=== PATIENT | male | born 1945 | race Caucasian/White ===

== ENCOUNTER 2016-10-28 05:22 | Emergency (ER) | payer MEDICARE, BC ==
[2016-10-28] MEDS ORDERED: MECLIZINE 25 MG TABLET PO ONE (05:28)
[2016-10-28] MEDS ORDERED: ONDANSETRON HCL IV 4 MG/2 ML VIAL IVP ONE (05:28)
[2016-10-28] MEDS ORDERED: ACETAMINOPHEN 1,000 MG/100 ML BTL IVPB ONE (05:28)
[2016-10-28 05:42] LABS: BASO % 0.9 % (0-6); EOS % 7.2 % (0-6); GRAN % 58.7 % (47-80); HEMOGLOBIN 11.5 gm/dl (14.0-18.0); LYMPH % 23.9 % (16-45); MEAN CELL VOLUME 87.6 fl (81-97); MEAN CORPUSCULAR HEMOGLOBIN 29.6 pg (27-33); MEAN CORPUSCULAR HGB CONC 33.8 g/dl (32-36); MEAN PLATELET VOLUME 10.5 fl (7.4-10.4); MONO % 9.3 % (0-9); PLATELET COUNT 284 K/uL (130-400); RED BLOOD COUNT 3.88 M/uL (4.40-5.70); RED CELL DISTRIBUTION WIDTH 12.5 % (11.5-14.5); WHITE BLOOD COUNT W/O DIFF 8.8 K/uL (4.2-12.2)
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
[2016-10-28 05:50] LABS: ALB/GLOB RATIO 1.2 (1.1-1.8); ALBUMIN 4.1 gm/dL (3.5-5.0); ANION GAP 9.2 (7-16); BILIRUBIN,TOTAL 0.58 mg/dL (0.2-1.3); CARBON DIOXIDE 25.8 mmol/L (22-30); CREATININE 1.7 mg/dL (0.66-1.25); TOTAL PROTEIN 7.5 gm/dL (6.3-8.2)
[2016-10-28 06:20] LABS: URINE APPEARANCE CLOUDY; URINE BILIRUBIN NEGATIVE (NEGATIVE); URINE BLOOD MODERATE (NEGATIVE); URINE COLOR YELLOW; URINE GLUCOSE (UA) NEGATIVE (NEGATIVE); URINE KETONE NEGATIVE (NEGATIVE); URINE LEUKOCYTE ESTERASE LARGE (NEGATIVE); URINE NITRITE NEGATIVE (NEGATIVE); URINE UROBILINOGEN 0.2 E.U./dL (0.20 - 1.00)
[2016-10-28 06:23] LABS: URINE BACTERIA 1+; URINE EPITHELIAL CELLS NONE SEEN (FEW); URINE RBC 21 - 35 (NONE SEEN)
[2016-10-28] MEDS ORDERED: CEFTRIAXONE SODIUM 1 GM in 0.9 % SODIUM CHLORIDE 100ML 100 ML IVPB ONE (06:25)
[2016-10-28] MEDS ORDERED: SODIUM CHLORIDE 0.9% 500 ML IV ONE (06:29)
[2016-10-28] MEDS ORDERED: TMP/SMZ 160MG/800MG TAB PO ONE (07:15)
--- NOTE | 2016-10-28 07:15 | Emergency Department Record ---
History of Present Illness - General Chief Complaint: Dizziness Stated Complaint: DIZZY Time Seen by Provider: 10/28/16 05:27 Source: Patient, EMS Mode of Arrival: Ambulatory Limitations: No limitations - History of Present Illness Onset/Timin -: Hour(s) Timing: Awoke with symptoms, Intermittent Description: Difficulty walking, Lightheadedness, Nausea History of Same: Yes History of Trauma: No Severity: Moderate Improves With: Remaining still Worsens With: Movement, Position Associated Symptoms: Denies other symptoms - Oral Coma Scale Eye Response: (4) Open spontaneously Motor Response: (6) Obeys commands Verbal Response: (5) Oriented [place] Total: 15 - Symptoms of Stroke Symptoms of stroke: Dizziness - Related Data Home Medications Medication Instructions Recorded Confirmed Last Taken Amlodipine Besylate [Norvasc] 10 mg PO DAILY 10/28/16 10/28/16 Unknown Insulin Glargine,Hum.rec.anlog 30 units SQ QAM 10/28/16 10/28/16 Unknown [Lantus Solostar] Metformin HCl [Metformin HCl] 850 mg PO BID 10/28/16 10/28/16 Unknown Short Acting Insulin 10 units SQ DAILY 10/28/16 10/28/16 Unknown Previous Rx's Medication Instructions Recorded Cephalexin [Keflex] 500 mg PO TID #30 cap 10/28/16 Sulfamethoxazole/Trimethoprim 1 each PO BID #20 tablet 10/28/16 [Bactrim Ds Tablet] Allergies Allergy/AdvReac Type Severity Reaction Status Date / Time No Known Drug Allergies Allergy Verified 10/28/16 05:39 Travel Screening - Travel/Exposure Within Last 30 Days Have you traveled within the last 30 days?: No - Travel/Exposure Within Last Year Have you traveled outside the [place] in the last year?: No - Additonal Travel Details Have you been exposed to anyone with a communicable illness?: No - Travel Symptoms Symptom Screening: None Review of Systems Constitutional: Reports: Weakness. Denies: Chills, Fever, Malaise Eyes: Denies: Eye discharge, Eye pain, Photophobia, Vision change ENT: Reports: Congestion. Denies: Dental pain, Ear pain, Epistaxis, Throat pain Respiratory: Denies: Cough, Dyspnea, Hemoptysis, Stridor, Wheezes Cardiovascular: Denies: Arrhythmia, Chest pain, Dyspnea on exertion, Edema, Palpitations, Syncope Endocrine: Denies: Fatigue, Polydipsia, Polyuria Gastrointestinal: Reports: Nausea. Denies: Abdominal pain, Constipation, Diarrhea, Hematemesis, Hematochezia, Vomiting Genitourinary: Reports: Frequency. Denies: Dysuria, Hematuria, Incontinence, Retention Musculoskeletal: Denies: Arthralgia, Back pain, Joint swelling, Myalgia Skin: Denies: Bruising, Change in color, Rash Neurological: Reports: Headache (frontal pressure for 13 months, daily, constant , never completely resolves), Vertigo. Denies: Confusion, Numbness, Seizure, Tingling Psychiatric: Denies: Anxiety Hematological/Lymphatic: Denies: Easy bleeding, Easy bruising Past Medical History - SOCIAL HISTORY Smoking Status: Former smoker Alcohol Use: None Drug Use: None - RESPIRATORY Hx Respiratory Disorders: No - CARDIOVASCULAR Hx Cardio Disorders: Yes Hx Hypertension: Yes - NEURO Hx Neuro Disorders: No - GI Hx GI Disorders: No - Hx Genitourinary Disorders: Yes Hx Renal Disease: Yes - ENDOCRINE Hx Endocrine Disorders: Yes Hx Diabetes: Yes - MUSCULOSKELETAL Hx Musculoskeletal Disorders: No - PSYCH Hx Psych Problems: No - HEMATOLOGY/ONCOLOGY Hx Hematology/Oncology Disorders: No Family Medical History Any Significant Family History?: No Physical Exam - General General Appearance: Alert, Oriented x3, Cooperative, No acute distress Limitations: No limitations - Head Head exam: Normal inspection - Eye Eye exam: Normal appearance, PERRL Pupils: Normal accommodation - ENT ENT exam: Normal exam, Mucous membranes moist, Normal external ear exam, Normal orophraynx, TM's normal bilaterally Ear exam: Normal external inspection. negative: External canal tenderness Nasal Exam: Normal inspection. negative: Discharge, Sinus tenderness Mouth exam: Normal external inspection, Tongue normal Teeth exam: Normal inspection. negative: Dental caries Throat exam: Normal inspection. negative: Tonsillar erythema, Tonsillar exudate - Neck Neck exam: Normal inspection, Full ROM. negative: Tenderness - Respiratory Respiratory exam: Normal lung sounds bilaterally. negative: Respiratory distress - Cardiovascular Cardiovascular Exam: Regular rate, Normal rhythm, Normal heart sounds - GI/Abdominal GI/Abdominal exam: Soft, Normal bowel sounds. negative: Tenderness - Rectal Rectal exam: Deferred - exam: Deferred - Extremities Extremities exam: Normal inspection, Full ROM, Normal capillary refill. negative: Tenderness - Back Back exam: Reports: Normal inspection, Full ROM. 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 Patient recieved 500 ml of normal saline and 100 ml with IV rocephin and I gave him a glass of water to drink. Will give him another 500 ml of saline and bactrim DS PO given. - Reevaluation(s) Reevaluation #1: patient given a breakfast tray. 10/28/16 07:44 Reevaluation #2: patient ate his breakfast and feeling better and up at the bedside standing and walking 10/28/16 08:47 Medical Decision Making - Lab Data Result diagrams: 10/28/16 05:35 10/28/16 05:35 Lab Results 10/28/16 10/28/16 10/28/16 Range/Units 05:35 05:35 06:10 WBC 8.8 (4.2-12.2) K/uL RBC 3.88 L (4.40-5.70) M/uL Hgb 11.5 L (14.0-18.0) gm/dl Hct 34.0 L (42.0-52.0) % MCV 87.6 (81-97) fl MCH 29.6 (27-33) pg MCHC 33.8 (32-36) g/dl RDW 12.5 (11.5-14.5) % Plt Count 284 (130-400) K/uL MPV 10.5 H (7.4-10.4) fl Gran % 58.7 (47-80) % Lymphocytes % 23.9 (16-45) % Monocytes % 9.3 H (0-9) % Eosinophils % 7.2 H (0-6) % Basophils % 0.9 (0-6) % Sodium 140 (136-145) mmol/L Potassium 4.3 (3.5-5.1) mmol/L Chloride 105 (98-107) mmol/L Carbon Dioxide 25.8 (22-30) mmol/L Anion Gap 9.2 (7-16) BUN 41 H (9-20) mg/dL Creatinine 1.7 H (0.66-1.25) mg/dL Estimated GFR 42 ml/min Random Glucose 173 H (70-110) mg/dL Calcium 9.2 (8.5-10.1) mg/dL Magnesium 1.8 (1.6-2.3) mg/dL Total Bilirubin 0.58 (0.2-1.3) mg/dL AST 15 L (17-59) U/L ALT 31 (21-72) U/L Alkaline Phosphatase 121 (38-126) U/L Total Protein 7.5 (6.3-8.2) gm/dL Albumin 4.1 (3.5-5.0) gm/dL Globulin 3.4 (1.4-4.8) gm/dL Albumin/Globulin Ratio 1.2 (1.1-1.8) Urine Color Yellow Urine Appearance Cloudy Urine pH 6.0 (5.0-8.0) Ur Specific [place] 1.025 (1.002-1.030) Urine Protein 100 mg/dl H (NEGATIVE) Urine Glucose (UA) Negative (NEGATIVE) Urine Ketones Negative (NEGATIVE) Urine Blood Moderate (NEGATIVE) Urine Nitrite Negative (NEGATIVE) Urine Bilirubin Negative (NEGATIVE) Urine Urobilinogen 0.2 (0.20 - 1.00) E.U./dL Ur Leukocyte Esterase Large H (NEGATIVE) Urine RBC 21 - 35 (NONE SEEN) Urine WBC Too numerous to cnt (0-2/hpf) Ur Epithelial Cells None seen (FEW) Urine Bacteria 1+ Disposition Clinical Impression: Weakness of both legs, Dizziness Urinary tract infection Qualifiers: Urinary tract infection type: site unspecified Hematuria presence: without hematuria Qualified Code(s): N39.0 - Urinary tract infection, site not specified Disposition: Home, Self-Care Condition: (1) Good Instructions: Urinary Tract Infection in Men (ED) Additional Instructions: follow up with Natalia next week as scheduled Prescriptions: Cephalexin [Keflex] 500 mg PO TID #30 cap Sulfamethoxazole/Trimethoprim [Bactrim Ds Tablet] 1 each PO BID #20 tablet Forms: Patient Portal Access Time of Disposition: 08:50 Quality - Quality Measures Quality Measures: N/A - Blood Pressure Screening Does Patient Have Any of the Following: No Blood Pressure Classification: Hypertensive Reading Systolic Measurement: 147 Diastolic Measurement: 74 Screening for High Blood Pressure: < First Hypertensive BP, F/U Documented > [ G8950] First Hypertensive Follow-up Interventions: Referral to alternative/primary care provider.
[2016-10-28] MEDS ORDERED: 0.9 % SODIUM CHLORIDE 500ML 500 ML IV SCH (07:45)
--- NOTE | 2016-10-30 15:17 | CT SCAN REPORT ---
EXAM: CT OF THE BRAIN WITHOUT CONTRAST HISTORY: SEVERE HEADACHE. TECHNIQUE: Sequential axial images were obtained from the foramen magnum to the vertex without contrast administration. FINDINGS: The brain volume is normal. There is no large territorial infarct, hemorrhage, mass effect, or midline shift. No extraaxial fluid collection. Redemonstrated are calcifications within the karlene. These appear similar in appearance when compared to the prior exam dated 08/14/09. The orbits appear normal. There is ethmoid sinus disease. IMPRESSION: 1. ETHMOID SINUS DISEASE. NO ACUTE INTRACRANIAL ABNORMALITY IS APPRECIATED. 2. PERSISTENT CALCIFICATIONS IN THE CENTRAL KARLENE. JOB NUMBER: [id number] MTDD
== END 2016-10-28 10:19 | disposition home or self-care (01) ==
LOC: ER 05:22
DX: N39.0 Urinary tract infection, site not specified (principal); R42 Dizziness and giddiness; R53.1 Weakness; I10 Essential (primary) hypertension; Z87.891 Personal history of nicotine dependence; E11.9 Type 2 diabetes mellitus without complications; Z79.4 Long term (current) use of insulin
CPT/HCPCS: 70450; 80053; 81001; 83735; 85025; 93005; 93010; 96361; 96365; 96375; 99284; J2405

== ENCOUNTER 2018-04-03 10:40 | Emergency (ER) | payer BC, MEDICARE ==
--- NOTE | 2018-04-03 11:01 | Emergency Department Record ---
History of Present Illness - General Chief Complaint: Fall Injury Stated Complaint: FELL Time Seen by Provider: 04/03/18 10:55 Source: Patient, RN notes reviewed - History of Present Illness Initial Comments: fell on the ice. patient refused pain meds initially . Right leg short and rotates externally. stopped smoking 11 years ago and no lung or heart problems He has diabetes and a healing lesion on the lower ankle right ankle and he is going to [facility] [place] for that. Primary is the [facility] MD Complaint: Fall - Related Data Home Medications Medication Instructions Recorded Confirmed Last Taken Insulin Glulisine [Apidra Solostar] 6 iu SQ DAILY 04/03/18 04/03/18 04/03/18 Previous Rx's Medication Instructions Recorded Sulfamethoxazole/Trimethoprim 1 each PO BID #20 tablet 10/28/16 [Bactrim Ds Tablet] Allergies Allergy/AdvReac Type Severity Reaction Status Date / Time No Known Drug Allergies Allergy Verified 04/03/18 10:41 Review of Systems Reviewed: No additional complaints except as noted below Constitutional: Reports: As per HPI. Denies: Chills, Fever, Malaise, Night sweats, Weakness, Weight change Eyes: Reports: As per HPI. Denies: Eye discharge, Eye pain, Photophobia, Vision change ENT: Reports: As per HPI. Denies: Congestion, Dental pain, Ear pain, Epistaxis , Hearing loss, Throat pain Respiratory: Reports: As per HPI. Denies: Cough, Dyspnea, Hemoptysis, Stridor, Wheezes Cardiovascular: Reports: As per HPI. Denies: Arrhythmia, Chest pain, Dyspnea on exertion, Edema, Murmurs, Orthopnea, Palpitations, Paroxysmal nocturnal dyspnea, Rheumatic Fever, Syncope Endocrine: Reports: As per HPI. Denies: Fatigue, Heat or cold intolerance, Polydipsia, Polyuria Gastrointestinal: Reports: As per HPI. Denies: Abdominal pain, Constipation, Diarrhea, Hematemesis, Hematochezia, Melena, Nausea, Vomiting Genitourinary: Reports: As per HPI. Denies: Dysuria, Frequency, Hematuria, Incontinence, Retention, Testicular pain, Testicular mass, Urgency Musculoskeletal: Reports: As per HPI. Denies: Arthralgia, Back pain, Gout, Joint swelling, Myalgia, Neck pain Skin: Reports: As per HPI. Denies: Bruising, Change in color, Change in hair/ nails, Lesions, Pruritus, Rash Neurological: Reports: As per HPI. Denies: Abnormal gait, Confusion, Headache, Numbness, Paresthesias, Seizure, Tingling, Tremors, Vertigo, Weakness Psychiatric: Reports: As per HPI. Denies: Anxiety, Auditory hallucinations, Depression, Homicidal thoughts, Suicidal thoughts, Visual hallucinations Hematological/Lymphatic: Reports: As per HPI. Denies: Anemia, Blood Clots, Easy bleeding, Easy bruising, Swollen glands Past Medical History - SOCIAL HISTORY Smoking Status: Former smoker Drug Use: None - RESPIRATORY Hx Respiratory Disorders: No - CARDIOVASCULAR Hx Cardio Disorders: Yes Hx Hypertension: Yes - NEURO Hx Neuro Disorders: No - GI Hx GI Disorders: No - Hx Genitourinary Disorders: Yes Hx Renal Disease: Yes - ENDOCRINE Hx Endocrine Disorders: Yes Hx Diabetes: Yes - MUSCULOSKELETAL Hx Musculoskeletal Disorders: No - PSYCH Hx Psych Problems: No - HEMATOLOGY/ONCOLOGY Hx Hematology/Oncology Disorders: No Physical Exam - General General Appearance: Alert, Oriented x3, Cooperative, Mild distress - Head Head exam: Normal inspection - Eye Eye exam: Normal appearance, PERRL Pupils: Normal accommodation - ENT ENT exam: Normal exam, Mucous membranes moist, Normal external ear exam, Normal orophraynx, TM's normal bilaterally Ear exam: Normal external inspection. negative: External canal tenderness Nasal Exam: Normal inspection. negative: Discharge, Sinus tenderness Mouth exam: Normal external inspection, Tongue normal Teeth exam: Normal inspection. negative: Dental caries Throat exam: Normal inspection. negative: Tonsillar erythema, Tonsillar exudate - Neck Neck exam: Normal inspection, Full ROM. negative: Tenderness - Respiratory Respiratory exam: Normal lung sounds bilaterally. negative: Respiratory distress - Cardiovascular Cardiovascular Exam: Regular rate, Normal rhythm, Normal heart sounds - GI/Abdominal GI/Abdominal exam: Soft, Normal bowel sounds. negative: Tenderness - Rectal Rectal exam: Deferred - exam: Deferred - Extremities Extremities exam: Normal capillary refill, Tenderness (right hip short and externally rotated) - Back Back exam: Reports: Normal inspection, Full ROM. Denies: Muscle spasm, Rash noted, Tenderness - Neurological Neurological exam: Alert, Normal gait, Oriented X3, Reflexes normal - Psychiatric Psychiatric exam: Normal affect, Normal mood - Skin Skin exam: Dry, Intact, Normal color, Warm Course Discussed case with Dr Steinberg and he recommended I send it to [facility]. - Reevaluation(s) Reevaluation #1: discussed case with Dr Abbott and will transfer to [facility] for repair 04/03/18 12:00 Medical Decision Making - Data Complexity MDM Data: Labs Ordered and/or Reviewed, X-Ray Ordered and/or Reviewed ( intertrochanter right hip fracture, chest xray negative) - Lab Data Result diagrams: 04/03/18 11:40 04/03/18 11:40 Disposition Clinical Impression: Hip fracture Qualifiers: Encounter type: initial encounter Fracture type: closed Laterality: right Qualified Code(s): S72.001A - Fracture of unspecified part of neck of right femur, initial encounter for closed fracture Diabetes Qualifiers: Diabetes mellitus type: type 2 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
[2018-04-03 12:09] LABS: BASO % 0.4 % (0-6); EOS % 2.3 % (0-6); GRAN % 74.3 % (47-80); HEMATOCRIT 35.8 % (42.0-52.0); HEMOGLOBIN 11.6 gm/dl (14.0-18.0); LYMPH % 15.4 % (16-45); MEAN CELL VOLUME 86.5 fl (81-97); MEAN CORPUSCULAR HGB CONC 32.4 g/dl (32-36); MEAN PLATELET VOLUME 10.4 fl (7.4-10.4); MONO % 7.6 % (0-9); PLATELET COUNT 352 K/uL (130-400); RED BLOOD COUNT 4.14 M/uL (4.40-5.70); RED CELL DISTRIBUTION WIDTH 13.2 % (11.5-14.5); WHITE BLOOD COUNT W/O DIFF 10.8 K/uL (4.2-12.2)
[2018-04-03 12:20] LABS: CREATININE 1.5 mg/dL (0.7-1.2)
[2018-04-03 12:23] LABS: INR 1.1; PARTIAL THROMBOPLASTIN TIME 27.1 SECONDS (24.5-39.1); PROTHROMBIN TIME (PATIENT) 10.6 SECONDS (9.5-12.1)
[2018-04-03] MEDS ORDERED: ONDANSETRON HCL IV 4 MG/2 ML VIAL IVP ONE ×2 (13:01→14:25)
[2018-04-03] MEDS ORDERED: 0.9 % SODIUM CHLORIDE 1000ML 1,000 ML IV ONE (13:02)
[2018-04-03] MEDS ORDERED: PANTOPRAZOLE SODIUM IV 40 MG VIAL IVP ONE (13:04)
[2018-04-03] MEDS ORDERED: MORPHINE SULFATE 10 MG/ML VIAL IVP ONE (14:25)
--- NOTE | 2018-04-04 12:21 | RADIOLOGY REPORT ---
EXAM: CHEST, SINGLE VIEW HISTORY: FALL, RIGHT HIP PAIN. TECHNIQUE: A single frontal view of the chest was obtained. Comparison: Chest radiograph 08/14/09. FINDINGS: The cardiac silhouette is within normal size limits. No focal pulmonary consolidation. No pleural effusion or pneumothorax. No definite acute osseous findings. Possible calcific tendinosis or joint bodies involving the right shoulder. IMPRESSION: NO ACUTE CHEST FINDINGS. JOB NUMBER: [id number] MTDD
--- NOTE | 2018-04-04 12:25 | RADIOLOGY REPORT ---
EXAM: PELVIS AND RIGHT HIP HISTORY: FALL, RIGHT HIP PAIN. TECHNIQUE: AP view of the pelvis and AP and lateral views of the right hip were obtained. Comparison: None. FINDINGS: Acute intertrochanteric fracture of the proximal right femur with increased varus angulation. No additional definite fractures are appreciated. No dislocation. Extensive vascular calcifications are present. IMPRESSION: ACUTE ANGULATED INTERTROCHANTERIC FRACTURE OF THE PROXIMAL RIGHT FEMUR. JOB NUMBER: [id number] MTDD
== END 2018-04-03 14:41 | disposition short-term general hospital (02) ==
LOC: ER 10:40
DX: S72.141A Displaced intertrochanteric fracture of right femur, initial encounter for closed fracture (principal); K92.0 Hematemesis; M21.70 Unequal limb length (acquired), unspecified site; I10 Essential (primary) hypertension; E11.9 Type 2 diabetes mellitus without complications; W00.0XXA Fall on same level due to ice and snow, initial encounter; Z79.4 Long term (current) use of insulin; Z87.891 Personal history of nicotine dependence
CPT/HCPCS: 71045; 80048; 85025; 85610; 85730; 93005; 93010; 96361; 96374; 96375; 96376; 99285; C9113; J2270; J2405

== ENCOUNTER 2018-04-08 16:08 | Inpatient (IN) | payer MEDICARE ==
[2018-04-09] MEDS ORDERED: HYDROCODONE/APAP 5/325MG TABLET PO PRN (15:24)
[2018-04-09] MEDS: APIXABAN 2.5MG TABLET PO SCH (21:38)
[2018-04-09] MEDS: TAMSULOSIN HCL 0.4 MG CAP.ER.24H PO SCH (21:38)
[2018-04-09] MEDS ORDERED: METFORMIN 500 MG TABLET PO SCH (22:00)
[2018-04-09] MEDS ORDERED: SENNOSIDES/DOCUSATE SODIUM UD CAPSULE PO SCH (22:00)
[2018-04-10] MEDS: LEVEMIR FLEXTOUCH 100 UNIT/ML INSULIN PEN SQ SCH (10:24)
[2018-04-10] MEDS: APIXABAN 2.5MG TABLET PO SCH ×2 (10:25→21:19)
[2018-04-10] MEDS: ATORVASTATIN 20 MG TABLET PO SCH (10:25)
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
[2018-04-10] MEDS: NOVOLOG FLEXPEN (INSULIN ASPART) 100 UNITS/ML SQ SCH ×2 (12:21→17:25)
[2018-04-10] MEDS: METFORMIN 500 MG TABLET PO SCH ×2 (12:22→21:53)
[2018-04-10] MEDS: ACETAMINOPHEN 325 MG TAB PO PRN (14:12)
--- NOTE | 2018-04-10 14:59 | Physical Therapy Tx Note ---
Physical Therapy Tx Note - Treatment Note Tolerated: Good Total Time Spent With Patient: 15 Physical Therapy Tx Note: Detail (The patient was in bed when PT arrived. The patient acheived supine to sit independently when cued to use L LE to lift R LE. The patient was able to acheive sit to and from stand indpendently with one hand on bed and the other on walker with bed elevated. The patient ambulated with front wheeled walker a distance of 10 feet x 1 PWB on the R LE with CG of 1 and assist of 1 following with wheelchair and maximal verbal encouragement. The patient had complaints of pain after , nursing notified. The patient was left in wheelchair with call light in reach and present.) Physical Therapy Problem List: Detail (1) Decreased R LE and hip and bilateral knee ROM. 2) Assistance with bed mobility. 3) Impaired ambulation secondary s/p R hip fracture.) Physical Therapy Goals: 1) The patient will ambulate with appropriate assistance device PWB on the R LE household distances. 2) The paitent will ambulate on stairs using proper technique PWB on R LE supervision for safety. 3 ) The patient will be independent with all bed mobility and transfers. 4) Increase R LE strength 1/3 muscle grade to increase stability of gait. Physical Therapy Plan: PT 1-2 times a day M-F for gait training on levels and stairs, bed mobility, transfer training and LE strengthening exercises.
--- NOTE | 2018-04-10 15:27 | Swing Bed Certification/Recert ---
Initial Certification Due: 04/09/18 14 Day Re-Cert Due: 04/23/18 44 Day Re-Cert Due: 05/23/18 74 Day Re-Cert Due: 06/22/18 CERTIFICATION 3 CERTIFICATION OF PATIENT ADMISSION Required at time of admission. Due: 04/09/18 I certify that SNF services are required to be given on an inpatient basis because of the above named patient's need for [facility] care on a continuing basis for the condition(s) for which he/she was receiving inpatient hospital services prior to his/her transfer to the SNF. The patient's current needs for skilled care includes: [physical therapy/ occupational therapy, assistance with ADL's, naqvi catheter care] Romy Lopes, N.P. 04/10/18
[2018-04-10] MEDS ORDERED: LOPERAMIDE 2 MG CAPSULE PO PRN (16:00)
[2018-04-10] MEDS: VANCOMYCIN HCL 1 GM VIAL PO SCH (18:49)
[2018-04-10] MEDS: TAMSULOSIN HCL 0.4 MG CAP.ER.24H PO SCH (21:19)
[2018-04-11] MEDS: VANCOMYCIN HCL 1 GM VIAL PO SCH ×4 (00:22→17:56)
[2018-04-11] MEDS ORDERED: ZINC OXIDE 28.35 GM TUBE TOP PRN ×2 (04:16→04:45)
[2018-04-11 06:53] LABS: BASO % 0.2 % (0-6); EOS % 4.4 % (0-6); GRAN % 69.5 % (47-80); HEMATOCRIT 24.3 % (42.0-52.0); HEMOGLOBIN 7.7 gm/dl (14.0-18.0); LYMPH % 14.7 % (16-45); MEAN CELL VOLUME 88.4 fl (81-97); MEAN CORPUSCULAR HGB CONC 31.7 g/dl (32-36); MEAN PLATELET VOLUME 10.2 fl (7.4-10.4); MONO % 11.2 % (0-9); PLATELET COUNT 376 K/uL (130-400); RED BLOOD COUNT 2.75 M/uL (4.40-5.70); RED CELL DISTRIBUTION WIDTH 12.7 % (11.5-14.5); WHITE BLOOD COUNT W/O DIFF 10.1 K/uL (4.2-12.2)
[2018-04-11 07:13] LABS: BILIRUBIN,TOTAL 0.6 mg/dL (0.2-1.0); CREATININE 1.6 mg/dL (0.7-1.2); TOTAL PROTEIN 6.1 g/dL (6.6-8.7)
[2018-04-11] MEDS ORDERED: POTASSIUM CHLORIDE 20 MEQ TABLET PO ONE ×2 (07:42→14:56)
[2018-04-11] MEDS: NOVOLOG FLEXPEN (INSULIN ASPART) 100 UNITS/ML SQ SCH ×3 (07:59→17:25)
[2018-04-11] MEDS: APIXABAN 2.5MG TABLET PO SCH ×2 (09:33→22:07)
[2018-04-11] MEDS: BIFIDOBACTERIUM INFANTIS 4 MG CAPSULE PO SCH (09:33)
[2018-04-11] MEDS: ATORVASTATIN 20 MG TABLET PO SCH (09:33)
[2018-04-11] MEDS: FERROUS SULFATE 325 MG TAB PO SCH (09:33)
[2018-04-11] MEDS: LEVEMIR FLEXTOUCH 100 UNIT/ML INSULIN PEN SQ SCH (09:33)
--- NOTE | 2018-04-11 10:43 | Physician Progress Note ---
Subjective - Date Date of Progress Note: 04/11/18 - Admitting Diagnosis Diagnosis: Right hip fx deconditioning secondary to fall - Subjective Nursing Care Plan Problem List Activity Intolerance (Swing Bed) Start: 04/09/18 17: 41 Freq: Status: Active Protocol: Created 04/09/18 17:41 [facility] (Rec: 04/09/18 17:41 SM [id number]) Altered Thought Process (Fall Risk) Start: 04/09/18 17: 52 Freq: Status: Active Protocol: Created 04/09/18 17:52 [facility] (Rec: 04/09/18 17:52 SM [id number]) Impaired Mobility (Fall Risk) Start: 04/09/18 17: 52 Freq: Status: Active Protocol: Created 04/09/18 17:52 [facility] (Rec: 04/09/18 17:52 SM [id number]) Knowledge Deficit (Swing Bed) Start: 04/09/18 17: 41 Freq: Status: Active Protocol: Created 04/09/18 17:41 [facility] (Rec: 04/09/18 17:41 SM [id number]) Pain (Swing Bed) Start: 04/09/18 17: 41 Freq: Status: Active Protocol: Created 04/09/18 17:41 [facility] (Rec: 04/09/18 17:41 SM [id number]) Risk for Injury (Fall Risk) Start: 04/09/18 17: 52 Freq: Status: Active Protocol: Created 04/09/18 17:52 [facility] (Rec: 04/09/18 17:52 [facility] [id number]) - Subjective Detail Comment: No additional complaints except as noted below Gastrointestinal: Reports: Diarrhea Genitourinary: Reports: Other (naqvi) Musculoskeletal: Reports: Other (right hip pain) General - Cognitive Patterns Speech: Normal Thought Process: Intact Thought Content: Normal - Communication Select best description of speech pattern: Clear Speech Ability to express ideas and wants: Understood Understanding verbal content: Understands - Mood and Behavior Patterns Appearance: Disheveled Mood: Normal Attitude: Cooperative - Physical Functioning Activity Level: Up with assist x2 Turning: With total assist ROM Ability: Moves all extremities, Limited/Compromised Assistive Devices: None Ambulation Ability: Needs Assist Bed Mobility: Needs Assist Transfer Ability: Needs Assist Bathing Ability: Needs Assist Personal Hygiene: Needs Assist Dressing Ability: Needs Assist Eating (Feeding) Ability: Needs Assist Toileting Ability: Needs Assist Administer Own Medication: Needs Assist - Continence Bowel Pattern: Normal for Patient Bladder Pattern: Retention Meds/Allergies - Allergies Allergies Allergy/AdvReac Type Severity Reaction Status Date / Time No Known Drug Allergies Allergy Verified 04/03/18 10:41 - Active Medications Current Medications Acetaminophen (Tylenol 325mg) 650 mg PO Q6H PRN PRN Reason: PAIN - MILD (1-4) Last Admin: 04/10/18 14:12 Dose: 650 mg Hydrocodone Bitart/Acetaminophen ([place] 5mg/325mg) 1 each PO Q6H PRN PRN Reason: PAIN - MOD TO SEVERE (5-10) Apixaban (Eliquis) 2.5 mg PO BID [facility] Last Admin: 04/11/18 09:33 Dose: 2.5 mg Atorvastatin Calcium (Lipitor) 20 mg PO DAILY [facility] Last Admin: 04/11/18 09:33 Dose: 20 mg Ferrous Sulfate (Iron) 325 mg PO DAILY [facility] Last Admin: 04/11/18 09:33 Dose: 325 mg Insulin Aspart (Novolog Flexpen) 1 unit SQ TIDINS [facility]; Protocol Last Admin: 04/11/18 07:59 Dose: Not Given Insulin Detemir (Levemir Flextouch) 28 unit SQ DAILY [facility] Last Admin: 04/11/18 09:33 Dose: 28 unit Metformin HCl (Glucophage Ir) 1,000 mg PO 1200,2200 [facility] Last Admin: 04/10/18 21:53 Dose: 1,000 mg Tamsulosin HCl (Flomax) 0.4 mg PO QHS [facility] Last Admin: 04/10/18 21:19 Dose: 0.4 mg Vancomycin HCl (Vanco) 125 mg PO Q6HR [facility] Stop: 04/15/18 18:31 Last Admin: 04/11/18 05:58 Dose: 125 mg Zinc Oxide (Desitin) 1 gm TOP ASDIR PRN PRN Reason: RASH Objective - Vital Signs Vital Signs: Vital Signs - Last 24 Hrs Temp Pulse Resp BP BP Pulse Ox 04/11/18 08:00 98.6 F 82 18 116/55 91 L 04/10/18 20:00 97.9 F 80 18 97/50 98 04/10/18 15:42 97.7 F 122/59 - General General Appearance: Alert, Oriented x3, Cooperative - Head Head exam: Atraumatic - Eye Eye exam: Normal appearance - ENT ENT exam: Normal exam - Respiratory Respiratory exam: Normal lung sounds bilaterally - Cardiovascular Cardiovascular Exam: Regular rate, Normal rhythm Peripheral Pulses: 2+: Radial (R), Radial (L), Dorsalis Pedis (R), Dorsalis Pedis (L) - GI/Abdominal GI/Abdominal exam: Soft, Normal bowel sounds - Rectal Rectal exam: Deferred - exam: Deferred - Extremities Image of Full Body: 1 - Stage 1 pressure ulcer, no open areas noted, nonblanchable 2 - post-op aquacel on hip, small areas of shadowing noted - Neurological Neurological exam: Abnormal gait - Psychiatric Psychiatric exam: Normal affect, Normal mood - Skin Skin exam: Abrasion (several on legs) H&P Results - Labs Result Diagrams: 04/11/18 06:25 04/11/18 06:25 Labs Last 24 Hours: Laboratory Results - last 24 hr 04/10/18 04/10/18 04/11/18 13:00 13:00 06:25 WBC 10.1 RBC 2.75 L Hgb 7.7 L Hct 24.3 L MCV 88.4 MCH 28.0 MCHC 31.7 L RDW 12.7 Plt Count 376 MPV 10.2 Gran % 69.5 Lymphocytes % 14.7 L Monocytes % 11.2 H Eosinophils % 4.4 Basophils % 0.2 Sodium Potassium Chloride Carbon Dioxide Anion Gap BUN Creatinine Estimated GFR Random Glucose Calcium Total Bilirubin AST ALT Alkaline Phosphatase Total Protein Albumin Globulin Albumin/Globulin Ratio Stool Occult Blood Negative C. difficile Ag & Toxin Detected H 04/11/18 06:25 WBC RBC Hgb Hct MCV MCH MCHC RDW Plt Count MPV Gran % Lymphocytes % Monocytes % Eosinophils % Basophils % Sodium 137 Potassium 2.8 L* Chloride 99 Carbon Dioxide 24.0 Anion Gap 14.0 BUN 23 Creatinine 1.6 H Estimated GFR 45 Random Glucose 116 H Calcium 8.2 L Total Bilirubin 0.60 AST 15 ALT 8 Alkaline Phosphatase 112 Total Protein 6.1 L Albumin 3.0 L Globulin 3.1 Albumin/Globulin Ratio 1.0 L Stool Occult Blood C. difficile Ag & Toxin Discharge Potential - Discharge Needs Community Services Used Prior to Admission: None Patient Discharge Plan Description: Return Home Community Services Needed at Discharge: None Plan - Swing Bed Certification Initial Certification Due: 04/09/18 14 Day Re-Cert Due: 04/23/18 44 Day Re-Cert Due: 05/23/18 74 Day Re-Cert Due: 06/22/18 - Detailed Diagnosis and Plan (1) Weakness Current Visit: Yes Status: Acute Base Code: R53.1 - WEAKNESS Comment: 04/11: -PT/OT daily for ambulation and strength training (2) S/P right hip fracture Current Visit: Yes Status: Acute Base Code: Z87.81 - PERSONAL HISTORY OF ( HEALED) TRAUMATIC FRACTURE Comment: 04/11/18: Patient had a slip and fall on the ice 04/03. Was admitted to [facility] for a right intertrochanteric femur hip fracture. -Surgical repair 04/04 with a right cephalo-medullary nail placed -No surgical complications -[place] 5/325 q6h prn pain -Tylenol as needed for mild pain (3) C. difficile diarrhea Current Visit: Yes Status: Acute Base Code: A04.72 - ENTEROCOLITIS D/T CLOSTRIDIUM DIFFICILE, NOT SPCF RECUR Comment: 04/11/18: -Stool cultures positive for c-diff -Patient reports having diarrhea for over 1 week -Frequent loose stools since admission -Vanco 125mg PO q6h x 10 days -Probiotic daily -Encourage increased PO fluid intake (4) Low hemoglobin Current Visit: Yes Status: Acute Base Code: D64.9 - ANEMIA, UNSPECIFIED Comment: 04/11/18: -Hgb 7.7 today, (10.3 on 04/03/18) -Stool occult negative -No obvious signs of bleeding -Will recheck CBC tomorrow and consider transfusion or holding Eliquis at that time -Start daily iron supplement (5) Hypokalemia Current Visit: Yes Status: Acute Base Code: E87.6 - HYPOKALEMIA Comment: : -K 2.8 today, likely due to recurrent diarrhea -40mEq K PO, will recheck K (6) Diabetes type 2, controlled Current Visit: Yes Status: Acute Base Code: E11.9 - TYPE 2 DIABETES MELLITUS WITHOUT COMPLICATIONS Comment: 04/11/18: History of type 2 diabetes with insulin use -ADA diet -Metformin 850mg BID -Accucheck TID, per patient's home regimen -Novolog sliding scale, adjusted to patient's home insulin regimen (7) Urinary retention Current Visit: Yes Status: Acute Base Code: R33.9 - RETENTION OF URINE, UNSPECIFIED Comment: 04/11/18: -Patient had urinary retention post-op -Discharged with naqvi catheter, started on Flomax, and instructed to follow-up with urology in 5-7 days for a voiding trial -Follow-up appointment scheduled with Dr. Sanchez 04/16 at the specialty clinic (8) DVT prophylaxis Current Visit: Yes Status: Acute Base Code: ROQ7922 - Comment: 04/11/18: -Patient was started on Eliquis 2.5mg BID at [facility] for DVT prophylaxis post-op -Will continue with Eliquis at this time (9) Full code status Current Visit: Yes Status: Acute Base Code: Z78.9 - OTHER SPECIFIED HEALTH STATUS Comment: 04/11/18: -Discussed code status with patient, interested in DNR status but wishes to discuss further with family -Confirmed with patient that at this time he remains full status, patient verbalized understanding
--- NOTE | 2018-04-11 11:11 | Physical Therapy Tx Note ---
Physical Therapy Tx Note - Treatment Note Tolerated: Fair (Pt. became dizzy once seated at bedside, requested to lay back in bed. Pt.'s SP02 was measured at 96% once supine following pursed lip breathing. Pt. c/o right hip pain that limited LE exercises.) Physical Therapy Tx Note: Detail (Pt. performed supine to sit transfer with min assist x1. Pt. exhibits good positioning of RLE and hooking with contralateral LE to protect right hip. Pt. required used of trapeeze and required VC for positioning of LLE to reposition in bed. Pt. performed 10 repetitions of hamstring sets, LLE; 10 repetitions of gluteal sets bilaterally; pt. performed 5 repetitions of shoulder flexion, abduction, extension, and adduction isometrics bilaterally while supine; pt. performed 5 repetitions of elbow flexion isometrics before falling asleep in bed. Due to pt. Hg levels, and pt. reports of dizziness with no more than 1 minute of seated positioning, pt. was not assessed for standing balance and/or ambulation secondary to increased fall risk. Pt. fell asleep during bed exercises and became nauseous at end of tx. Pt. was left supine with call light available, nursing was notified of pt. status.) Physical Therapy Problem List: Detail (1) Decreased R LE and hip and bilateral knee ROM. 2) Assistance with bed mobility. 3) Impaired ambulation secondary s/p R hip fracture.) Physical Therapy Goals: 1) The patient will ambulate with appropriate assistance device PWB on the R LE household distances. 2) The paitent will ambulate on stairs using proper technique PWB on R LE supervision for safety. 3 ) The patient will be independent with all bed mobility and transfers. 4) Increase R LE strength 1/3 muscle grade to increase stability of gait. Physical Therapy Plan: PT 1-2 times a day M-F for gait training on levels and stairs, bed mobility, transfer training and LE strengthening exercises.
[2018-04-11] MEDS: METFORMIN 500 MG TABLET PO SCH ×2 (13:00→22:07)
--- NOTE | 2018-04-11 15:04 | Physical Therapy Tx Note ---
Physical Therapy Tx Note - Treatment Note Total Time Spent With Patient: 0 Physical Therapy Tx Note: Detail (Pt was sound asleep in bed, lying on L side. Did not provide treatment; nrsg states pt will be evaluated by PA to determine if admission status needs to change based on medical condition.) Physical Therapy Problem List: Detail (1) Decreased R LE and hip and bilateral knee ROM. 2) Assistance with bed mobility. 3) Impaired ambulation secondary s/p R hip fracture.) Physical Therapy Goals: 1) The patient will ambulate with appropriate assistance device PWB on the R LE household distances. 2) The paitent will ambulate on stairs using proper technique PWB on R LE supervision for safety. 3 ) The patient will be independent with all bed mobility and transfers. 4) Increase R LE strength 1/3 muscle grade to increase stability of gait. Physical Therapy Plan: PT 1-2 times a day M-F for gait training on levels and stairs, bed mobility, transfer training and LE strengthening exercises.
[2018-04-11] MEDS: TAMSULOSIN HCL 0.4 MG CAP.ER.24H PO SCH (22:07)
[2018-04-12] MEDS: ACETAMINOPHEN 325 MG TAB PO PRN (00:11)
[2018-04-12] MEDS: VANCOMYCIN HCL 1 GM VIAL PO SCH ×4 (00:11→18:11)
[2018-04-12 06:31] LABS: BASO % 0.3 % (0-6); EOS % 3.5 % (0-6); GRAN % 70.2 % (47-80); HEMATOCRIT 25.3 % (42.0-52.0); HEMOGLOBIN 7.9 gm/dl (14.0-18.0); MEAN CELL VOLUME 88.8 fl (81-97); MEAN CORPUSCULAR HEMOGLOBIN 27.7 pg (27-33); MEAN CORPUSCULAR HGB CONC 31.2 g/dl (32-36); MEAN PLATELET VOLUME 9.9 fl (7.4-10.4); PLATELET COUNT 389 K/uL (130-400); RED BLOOD COUNT 2.85 M/uL (4.40-5.70); RED CELL DISTRIBUTION WIDTH 12.7 % (11.5-14.5); WHITE BLOOD COUNT W/O DIFF 11.1 K/uL (4.2-12.2)
[2018-04-12 06:52] LABS: CREATININE 1.5 mg/dL (0.7-1.2)
[2018-04-12] MEDS: NOVOLOG FLEXPEN (INSULIN ASPART) 100 UNITS/ML SQ SCH ×3 (08:20→18:09)
[2018-04-12] MEDS: ATORVASTATIN 20 MG TABLET PO SCH (09:35)
[2018-04-12] MEDS: APIXABAN 2.5MG TABLET PO SCH ×2 (09:35→21:50)
[2018-04-12] MEDS: LEVEMIR FLEXTOUCH 100 UNIT/ML INSULIN PEN SQ SCH (09:35)
[2018-04-12] MEDS: BIFIDOBACTERIUM INFANTIS 4 MG CAPSULE PO SCH (09:35)
[2018-04-12] MEDS: FERROUS SULFATE 325 MG TAB PO SCH (09:35)
[2018-04-12] MEDS: POTASSIUM CHLORIDE 20 MEQ TABLET PO SCH (09:42)
[2018-04-12] MEDS ORDERED: POTASSIUM CHLORIDE 20 MEQ TABLET PO SCH (10:00)
--- NOTE | 2018-04-12 12:08 | Occupational Therapy Tx Note ---
Occupational Therapy Tx Note - Treatment Note Tolerated: Good Total Time Spent With Patient: 30 (ADL, gait) Occupational Therapy Treatment Note: Detail (S: Pt supine in bed. O: Supine to sit Indly, sit to stand with bed raised with CG assist. Pt amb 4 feet to wheelchair with 2 wheeled walker and CG assist. Pt transported to sink via wheelchair. Pt completed washing face, brushing hair Indly. Pt amb 4 feet with 2 wheeled walker to EOB with walker and CG assist. Sit to supine Indly and pt Ind with scooting up in bed with trapeze. A: Improved bed mobility and overall endurance today, pt Ind with grooming/hygiene.) Occupational Therapy Problem List: Detail (1. Decreased Ind with bed mobility and ambulating household distances. 2. Decreased Ind with self cares including dressing and showering. 3. Decreased endurance needed for Ind self cares and functional mobility.) Occupational Therapy Goals: 1. Pt will be Ind with bed mobility. 2. Pt will be Ind ambulating 20 feet with walker to allow Ind with self cares. 3. Pt will be safe and Ind with showering. 4. Pt will be Ind with total body dressing. 5. Pt will demonstrate improved endurance needed for safe and Ind ADLs. Occupational Therapy Plan: OT 2-4 days per week to address functional mobility, self cares and endurance to allow return home.
[2018-04-12] MEDS: METFORMIN 500 MG TABLET PO SCH ×2 (12:11→21:50)
--- NOTE | 2018-04-12 13:49 | Physical Therapy Tx Note ---
Physical Therapy Tx Note - Treatment Note Tolerated: Good Total Time Spent With Patient: 15 Physical Therapy Tx Note: Detail (The patient was in bed sleeping when PT arrived. PT was able to rouse patient. The patient completed the following R LE exercises in bed including: ankle pumps, gluteal sets, hamstring sets, quad sets , hip adductor squeezes and SAQ all x 10 reps and heelslides x 5 reps. The patient was too fatigued to complete further exercises/bed mobility. Patient was instructed to continue with ankle pumps and gluteal squeezes this weekend as well as getting up to chair with nursing staff.) Physical Therapy Problem List: Detail (1) Decreased R LE and hip and bilateral knee ROM. 2) Assistance with bed mobility. 3) Impaired ambulation secondary s/p R hip fracture.) Physical Therapy Goals: 1) The patient will ambulate with appropriate assistance device PWB on the R LE household distances. 2) The paitent will ambulate on stairs using proper technique PWB on R LE supervision for safety. 3 ) The patient will be independent with all bed mobility and transfers. 4) Increase R LE strength 1/3 muscle grade to increase stability of gait. Physical Therapy Plan: PT 1-2 times a day M-F for gait training on levels and stairs, bed mobility, transfer training and LE strengthening exercises.
[2018-04-12] MEDS: TAMSULOSIN HCL 0.4 MG CAP.ER.24H PO SCH (21:50)
[2018-04-13] MEDS: VANCOMYCIN HCL 1 GM VIAL PO SCH ×4 (00:13→17:58)
[2018-04-13] MEDS: NOVOLOG FLEXPEN (INSULIN ASPART) 100 UNITS/ML SQ SCH ×3 (08:07→17:28)
[2018-04-13] MEDS: FERROUS SULFATE 325 MG TAB PO SCH (09:43)
[2018-04-13] MEDS: BIFIDOBACTERIUM INFANTIS 4 MG CAPSULE PO SCH (09:43)
[2018-04-13] MEDS: APIXABAN 2.5MG TABLET PO SCH ×2 (09:44→21:58)
[2018-04-13] MEDS: POTASSIUM CHLORIDE 20 MEQ TABLET PO SCH (09:44)
[2018-04-13] MEDS: LEVEMIR FLEXTOUCH 100 UNIT/ML INSULIN PEN SQ SCH (09:44)
[2018-04-13] MEDS: ATORVASTATIN 20 MG TABLET PO SCH (09:44)
[2018-04-13] MEDS: METFORMIN 500 MG TABLET PO SCH ×2 (12:17→21:58)
[2018-04-13] MEDS: TAMSULOSIN HCL 0.4 MG CAP.ER.24H PO SCH (21:58)
[2018-04-14] MEDS: VANCOMYCIN HCL 1 GM VIAL PO SCH ×3 (00:39→14:46)
[2018-04-14 06:48] LABS: HEMATOCRIT 25.7 % (42.0-52.0); MEAN CELL VOLUME 88.6 fl (81-97); MEAN CORPUSCULAR HGB CONC 31.1 g/dl (32-36); MEAN PLATELET VOLUME 10.6 fl (7.4-10.4); PLATELET COUNT 455 K/uL (130-400); RED CELL DISTRIBUTION WIDTH 12.8 % (11.5-14.5); WHITE BLOOD COUNT W/O DIFF 12.4 K/uL (4.2-12.2)
[2018-04-14 06:58] LABS: CREATININE 1.6 mg/dL (0.7-1.2); MEAN CORPUSCULAR HEMOGLOBIN 27.5 pg (27-33)
[2018-04-14 07:32] LABS: PLATELET ESTIMATE INCREASED (NORMAL)
[2018-04-14] MEDS: NOVOLOG FLEXPEN (INSULIN ASPART) 100 UNITS/ML SQ SCH (08:30)
[2018-04-14] MEDS: LEVEMIR FLEXTOUCH 100 UNIT/ML INSULIN PEN SQ SCH (09:49)
[2018-04-14] MEDS: POTASSIUM CHLORIDE 20 MEQ TABLET PO SCH (09:59)
[2018-04-14] MEDS: BIFIDOBACTERIUM INFANTIS 4 MG CAPSULE PO SCH (09:59)
[2018-04-14] MEDS: APIXABAN 2.5MG TABLET PO SCH (09:59)
[2018-04-14] MEDS: FERROUS SULFATE 325 MG TAB PO SCH (09:59)
[2018-04-14] MEDS: ATORVASTATIN 20 MG TABLET PO SCH (10:00)
[2018-04-14 12:55] LABS: HEMATOCRIT 30.7 % (42.0-52.0); HEMOGLOBIN 9.7 gm/dl (14.0-18.0); MEAN CELL VOLUME 88.5 fl (81-97); MEAN CORPUSCULAR HGB CONC 31.6 g/dl (32-36); MEAN PLATELET VOLUME 10.1 fl (7.4-10.4); PLATELET COUNT 576 K/uL (130-400); RED BLOOD COUNT 3.47 M/uL (4.40-5.70); WHITE BLOOD COUNT W/O DIFF 17.4 K/uL (4.2-12.2)
[2018-04-14 12:57] LABS: MEAN CORPUSCULAR HEMOGLOBIN 27.9 pg (27-33)
[2018-04-14 13:02] LABS: HYPOCHROMIA 1+; PLATELET ESTIMATE NORMAL (NORMAL)
[2018-04-14 13:09] LABS: BLOOD UREA NITROGEN 34 mg/dL (8-23); CREATININE 1.8 mg/dL (0.7-1.2); EST GLOMERULAR FILTRATION RATE 39 mL/min
[2018-04-14 13:10] LABS: TOTAL PROTEIN 7.3 g/dL (6.6-8.7)
[2018-04-14 13:12] LABS: GLUCOSE,RANDOM 238 mg/dL (74-109)
[2018-04-14 13:15] LABS: ALB/GLOB RATIO 0.9 (1.1-1.8); ALBUMIN 3.5 g/dL (4.0-5.0); ALKALINE PHOSPHATASE 142 U/L (55-149); ALT/SGPT 10 U/L (<41); AST/SGOT 15 U/L (10.0-50.0); CREATINE PHOSPHOKINASE 44 U/L (39-308)
[2018-04-14 13:17] LABS: CKMB 1.5 ng/mL (<6.73)
[2018-04-14] MEDS: METFORMIN 500 MG TABLET PO SCH (14:46)
--- NOTE | 2018-04-14 15:32 | Discharge Summary ---
Providers Discharge Summary Date: 04/14/18 Date of admission: 04/09/18 16:48 Expected Date of Discharge: 04/14/18 Attending physician: TRIP LAGUNA Primary care physician: SHUANA ALEX M.D. 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 Physical Exam - Vital Signs Vital Signs: Vital Signs - Last 24 Hrs Temp Pulse Resp BP Pulse Ox 04/14/18 13:00 97.7 F 77 18 159/74 99 04/14/18 12:45 79 16 96 04/14/18 12:30 97.7 F 83 172/69 90 L 04/14/18 08:00 97.7 F 87 20 121/67 88 L 04/13/18 20:00 97.5 F L 90 16 111/59 94 L - General General Appearance: Alert, Oriented x3, Cooperative - Head Head exam: Atraumatic - Eye Eye exam: Normal appearance - ENT ENT exam: Normal exam, Mucous membranes moist - Respiratory Respiratory exam: Normal lung sounds bilaterally - Cardiovascular Cardiovascular Exam: Regular rate, Normal rhythm Peripheral Pulses: 2+: Radial (R), Radial (L), Dorsalis Pedis (R), Dorsalis Pedis (L) - GI/Abdominal GI/Abdominal exam: Soft, Normal bowel sounds - Rectal Rectal exam: Deferred - exam: Deferred, Other (naqvi) - Neurological Neurological exam: Abnormal gait - Psychiatric Psychiatric exam: Normal affect, Normal mood - Skin Skin exam: Abrasion (several on legs), Pallor Hospitalization - Hospitalization Admission Diagnosis: Right hip fx deconditioning secondary to fall - Problem List (1) Near syncope Current Visit: Yes Status: Acute Base Code: R55 - SYNCOPE AND COLLAPSE Comment: 04/14/18: - Rapid response called on patient due to a near syncopal event while getting up to bedside commode. Patient became villeda, reported dizziness, and staff had to assist patient back to bed - VS at that time were normotensive, regular heart rate, pulse ox WNL - EKG unremarkable - Troponin negative - Chest x-ray negative - WBC elevated, checking UA and chest x-ray for other sources of infection besides c-diff - Will dc to obs status for further cardiac workup at this time (2) Weakness Current Visit: Yes Status: Acute Base Code: R53.1 - WEAKNESS Comment: : - PT/OT daily for ambulation and strength training - Continued deconditioning and weakness with minimal ambulation, dizziness when getting up to commode (3) S/P right hip fracture Current Visit: Yes Status: Acute Base Code: Z87.81 - PERSONAL HISTORY OF ( HEALED) TRAUMATIC FRACTURE Comment: 04/14/18: Patient had a slip and fall on the ice 04/03. Was admitted to [facility] for a right intertrochanteric femur hip fracture. -Surgical repair 04/04 with a right cephalo-medullary nail placed -No surgical complications -Mapleton 5/325 q6h prn pain -Tylenol as needed for mild pain (4) C. difficile diarrhea Current Visit: Yes Status: Acute Base Code: A04.72 - ENTEROCOLITIS D/T CLOSTRIDIUM DIFFICILE, NOT SPCF RECUR Comment: 04/14/18: -Stool cultures positive for c-diff -Patient reports having diarrhea for over 1 week -Frequent loose stools since admission -Vanco 125mg PO q6h x 10 days -Contact isolation -Probiotic daily -Encourage increased PO fluid intake (5) Low hemoglobin Current Visit: Yes Status: Acute Base Code: D64.9 - ANEMIA, UNSPECIFIED Comment: 04/14/18: -Improving, hgb 9.7 today, (10.3 on 04/03/18) -Stool occult negative -No obvious signs of bleeding -Continue daily iron supplement (6) Hypokalemia Current Visit: Yes Status: Acute Base Code: E87.6 - HYPOKALEMIA Comment: : -K 3.4 today, likely due to recurrent diarrhea -20mEq K PO daily (7) Diabetes type 2, controlled Current Visit: Yes Status: Acute Base Code: E11.9 - TYPE 2 DIABETES MELLITUS WITHOUT COMPLICATIONS Comment: 04/14/18: History of type 2 diabetes with insulin use -ADA diet -Metformin 850mg BID -Accucheck TID, per patient's home regimen -Novolog sliding scale, adjusted to patient's home insulin regimen (8) Urinary retention Current Visit: Yes Status: Acute Base Code: R33.9 - RETENTION OF URINE, UNSPECIFIED Comment: 04/14/18: -Patient had urinary retention post-op -Discharged with naqvi catheter, started on Flomax, and instructed to follow-up with urology in 5-7 days for a voiding trial -Follow-up appointment scheduled with Dr. Sanchez 04/16 at the specialty clinic (9) DVT prophylaxis Current Visit: Yes Status: Acute Base Code: [id number] - Comment: 04/14/18: -Patient was started on Eliquis 2.5mg BID at [facility] for DVT prophylaxis post-op -Will continue with Eliquis at this time (10) DNR (do not resuscitate) Current Visit: Yes Status: Acute Base Code: Z66 - DO NOT RESUSCITATE Comment: 04/14/18: Patient is a DNR - Hospitalization Course Disposition: Acute Care Hospital Transfer Hospital Course: 72 year old male patient presents for participation in the swingbed program. Patient recently had a slip and fall on the ice, resulting in a right hip fracture. Patient was admitted to [facility] and underwent surgery 04/04/18 for a right cephalo-medullary nail placed due to a right intertrochanteric femur hip fracture. Patient had no complications from the surgery. While admitted at [facility] he had an episode of hematemesis. Patient was seen by GI, who felt the hematemesis was due to a Laverne-zepeda tear, with no further episodes. GI felt comfortable with further anticoagulation at that time and patient was restarted on home dose of Eliquis 2.5mg BID. Patient also experienced urinary retention after surgery, which did not resolve. Urology was consulted and advised that patient be discharged with a naqvi and to do a voiding trial 5-7 days after discharge. Patient's past medical history includes: insulin dependent type 2 diabetes, HTN , hyperlipidemia PCP: Dr. Alex 04/10/18: Patient A&O x 4, sitting comfortably in chair. Patient reports no concerns at this time, will continue with PT/OT as previously scheduled. Pain is currently well-controlled with [place] 5/325mg q6h prn. Will plan to follow- up with urology regarding urinary retention and current naqvi. 04/14/18: Patient had near syncopal episode today while getting up to commode. No signs of dehydration as patient has adequate urine output, moist mucous membranes, and normotensive. EKG unremarkable, VS at patient's baseline. Will dc from swingbed and admit to obs for further cardiac evaluation of near syncope. Procedures: Imaging and X-Rays 04/14/18 13:48 CHEST 1 VIEW [RAD] Stat Cardiology Procedures 04/14/18 12:40 EKG ONCE 04/14/18 14:57 Loading Manager .Continuous Echo W/CF & Cardiac Doppler ONCE 04/14/18 14:58 Telemetry [Loading Manager] .Continuous Abnormal Labs: Abnormal Lab Results 04/10/18 04/11/18 04/11/18 Range/Units 13:00 06:25 06:25 WBC (4.2-12.2) K/uL RBC 2.75 L (4.40-5.70) M/uL Hgb 7.7 L (14.0-18.0) gm/dl Hct 24.3 L (42.0-52.0) % MCHC 31.7 L (32-36) g/dl Plt Count (130-400) K/uL MPV (7.4-10.4) fl Lymphocytes % 14.7 L (16-45) % Monocytes % 11.2 H (0-9) % Lymphocytes (16-45) % Potassium 2.8 L* (3.4-4.5) mmol/L Carbon Dioxide (22-29) mmol/L Anion Gap (7-16) BUN (8-23) mg/dL Creatinine 1.6 H (0.7-1.2) mg/dL POC Glucose (70-110) mg/dL Random Glucose 116 H (74-109) mg/dL Calcium 8.2 L (8.8-10.2) mg/dL Total Protein 6.1 L (6.6-8.7) g/dL Albumin 3.0 L (4.0-5.0) g/dL Albumin/Globulin Ratio 1.0 L (1.1-1.8) C. difficile Ag & Toxin Detected H (NOT DETECT) 04/11/18 04/12/18 04/12/18 Range/Units 14:12 06:20 06:20 WBC (4.2-12.2) K/uL RBC 2.85 L (4.40-5.70) M/uL Hgb 7.9 L (14.0-18.0) gm/dl Hct 25.3 L (42.0-52.0) % MCHC 31.2 L (32-36) g/dl Plt Count (130-400) K/uL MPV (7.4-10.4) fl Lymphocytes % (16-45) % Monocytes % 10.0 H (0-9) % Lymphocytes (16-45) % Potassium 3.0 L (3.4-4.5) mmol/L Carbon Dioxide (22-29) mmol/L Anion Gap (7-16) BUN (8-23) mg/dL Creatinine 1.5 H (0.7-1.2) mg/dL POC Glucose (70-110) mg/dL Random Glucose 118 H (74-109) mg/dL Calcium 8.2 L (8.8-10.2) mg/dL Total Protein (6.6-8.7) g/dL Albumin (4.0-5.0) g/dL Albumin/Globulin Ratio (1.1-1.8) C. difficile Ag & Toxin (NOT DETECT) 04/12/18 04/12/18 04/13/18 Range/Units 12:59 13:23 07:30 WBC (4.2-12.2) K/uL RBC (4.40-5.70) M/uL Hgb (14.0-18.0) gm/dl Hct (42.0-52.0) % MCHC (32-36) g/dl Plt Count (130-400) K/uL MPV (7.4-10.4) fl Lymphocytes % (16-45) % Monocytes % (0-9) % Lymphocytes (16-45) % Potassium (3.4-4.5) mmol/L Carbon Dioxide (22-29) mmol/L Anion Gap (7-16) BUN (8-23) mg/dL Creatinine (0.7-1.2) mg/dL POC Glucose 203 H 203 H 260 H (70-110) mg/dL Random Glucose (74-109) mg/dL Calcium (8.8-10.2) mg/dL Total Protein (6.6-8.7) g/dL Albumin (4.0-5.0) g/dL Albumin/Globulin Ratio (1.1-1.8) C. difficile Ag & Toxin (NOT DETECT) 04/13/18 04/13/18 04/14/18 Range/Units 11:30 16:45 06:00 WBC 12.4 H (4.2-12.2) K/uL RBC 2.90 L (4.40-5.70) M/uL Hgb 8.0 L (14.0-18.0) gm/dl Hct 25.7 L (42.0-52.0) % MCHC 31.1 L (32-36) g/dl Plt Count 455 H (130-400) K/uL MPV 10.6 H (7.4-10.4) fl Lymphocytes % (16-45) % Monocytes % (0-9) % Lymphocytes 12.0 L (16-45) % Potassium (3.4-4.5) mmol/L Carbon Dioxide (22-29) mmol/L Anion Gap (7-16) BUN (8-23) mg/dL Creatinine (0.7-1.2) mg/dL POC Glucose 276 H 263 H (70-110) mg/dL Random Glucose (74-109) mg/dL Calcium (8.8-10.2) mg/dL Total Protein (6.6-8.7) g/dL Albumin (4.0-5.0) g/dL Albumin/Globulin Ratio (1.1-1.8) C. difficile Ag & Toxin (NOT DETECT) 04/14/18 04/14/18 04/14/18 Range/Units 06:00 12:52 12:52 WBC 17.4 H (4.2-12.2) K/uL RBC 3.47 L (4.40-5.70) M/uL Hgb 9.7 L (14.0-18.0) gm/dl Hct 30.7 L (42.0-52.0) % MCHC 31.6 L (32-36) g/dl Plt Count 576 H (130-400) K/uL MPV (7.4-10.4) fl Lymphocytes % (16-45) % Monocytes % (0-9) % Lymphocytes 15.0 L (16-45) % Potassium (3.4-4.5) mmol/L Carbon Dioxide 21.0 L 20.0 L (22-29) mmol/L Anion Gap 20.0 H (7-16) BUN 33 H 34 H (8-23) mg/dL Creatinine 1.6 H 1.8 H (0.7-1.2) mg/dL POC Glucose (70-110) mg/dL Random Glucose 312 H 238 H (74-109) mg/dL Calcium 7.9 L (8.8-10.2) mg/dL Total Protein (6.6-8.7) g/dL Albumin 3.5 L (4.0-5.0) g/dL Albumin/Globulin Ratio 0.9 L (1.1-1.8) C. difficile Ag & Toxin (NOT DETECT) Condition at Discharge: (2) Stable Discharge Medications - Discharge Medications Home Medications: Ambulatory Orders Amlodipine Besylate [Norvasc] 10 mg PO DAILY 10/28/16 [Last Taken 04/03/18] Insulin Glargine,Hum.rec.anlog [Lantus Solostar] 30 units SQ QAM 10/28/16 [Last Taken 04/03/18] Metformin HCl 850 mg PO BID 10/28/16 [Last Taken 04/03/18] Insulin Glulisine [Apidra Solostar] 6 iu SQ DAILY 04/03/18 [Last Taken 04/03/18] Acetaminophen [Tylenol 325Mg] 650 mg PO Q6H PRN tablet 04/14/18 [Last Taken Unknown] Apixaban [Eliquis] 2.5 mg PO BID tablet 04/14/18 [Last Taken Unknown] Bifidobacterium Infantis [Align] 4 mg PO DAILY capsule 04/14/18 [Last Taken Unknown] Ferrous Sulfate [Iron] 325 mg PO DAILY tablet 04/14/18 [Last Taken Unknown] Hydrocodone/APAP 5/325Mg [[place] 5Mg/325Mg] 1 each PO Q6H PRN tab 04/14/18 [ Last Taken Unknown] Insulin Aspart [Novolog Flexpen] 1 unit SQ TIDINS ml 04/14/18 [Last Taken Unknown] Insulin Detemir [Levemir Flextouch] 28 unit SQ DAILY syringe 04/14/18 [Last Taken Unknown] Metformin HCl [Glucophage Ir] 1,000 mg PO 1200,2200 tablet 04/14/18 [Last Taken Unknown] Potassium Chloride [Klor-Con] 20 meq PO DAILY tablet.sa 02/03/19 [Last Taken Unknown] Tamsulosin HCl [Flomax] 0.4 mg PO QHS cap.er.24h 04/14/18 [Last Taken Unknown] Zinc Oxide [Desitin] 1 gm TOP ASDIR PRN tube 04/14/18 [Last Taken Unknown] Discharge Plan - Discharge Instructions Activity at Discharge: As Per Physical Therapy Diet at Discharge: Diabetic Diet Quality Measures - Quality Measures Quality Measures: Advance Directives, Documentation of Current Medications in Medical Record, Elder Maltreatment Screen and Follow-Up Plan, Screening for High Blood Pressure and F/U Documented - Current Medications Quality Measure: Measure #130: Documentation of Current Medications Documentation of Current Medications: <Current Medications Documented/Reviewed> [[id number]] - Blood Pressure Screening Quality Measure: Screening for High Blood Pressure and Follow-Up Documented Does Patient Have Any of the Following: Active Dx of HTN Blood Pressure Classification: Pre-Hypertensive BP Reading Systolic Measurement: 122 Diastolic Measurement: 59 Screening for High Blood Pressure: Patient Exclusion, Hx of HTN [G9744] - Advance Directives Quality Measure: Measure #47: Care Plan Advance Directives Established: No Advance Directives Information Provided To Patient: Yes Advance Directives on File: No (States son "Veto" has at home and will bring here today.) Advance Care Planning: <Care Plan/Decision Maker Documented; Discussed & Documented> [8333F] - Elder Abuse Suspicion Index Screening: Elder Abuse Suspicion Index Screening Rely on people for bathing, dressing, shopping, banking, etc: No Prevented from getting food, clothes, medication, etc: No Made to feel shamed or threatened by someone: No Forced to sign papers or use money against will: No Feel afraid, touched in ways not wanted or hurt physically: No Poor eye contact, withdrawn, malnourished, cuts or bruises: No Screening Result: Negative result EASI Reference Information: Lucio MELÉNDEZ, Kristin C, Miguel D, Rodolfo M.Development and validation of a tool to assist physicians identification of elder abuse: The Elder Abuse Suspicion Index (EASI ). Journal of Elder Abuse and Neglect, 2008; 20 (3): 276-300. - Elder Maltreatment Screen Quality Measures: Elder Maltreatment Screen and Follow-Up Plan Elder Maltreatment Screen: <Negative, No Follow-Up Plan Required> [G8020]
[2018-04-14 16:29] LABS: URINE APPEARANCE CLEAR; URINE BILIRUBIN NEGATIVE (NEGATIVE); URINE BLOOD SMALL (NEGATIVE); URINE COLOR YELLOW; URINE KETONE NEGATIVE (NEGATIVE); URINE LEUKOCYTE ESTERASE NEGATIVE (NEGATIVE); URINE NITRITE NEGATIVE (NEGATIVE); URINE UROBILINOGEN 0.2 E.U./dL (0.20 - 1.00)
[2018-04-14 16:37] LABS: URINE BACTERIA NONE SEEN; URINE EPITHELIAL CELLS NONE SEEN (FEW); URINE RBC 0 - 2 (NONE SEEN); URINE WBC NONE SEEN (0-2/hpf)
--- NOTE | 2018-04-15 07:38 | RADIOLOGY REPORT ---
EXAM: PORTABLE CHEST HISTORY: PASSED OUT WHEN STANDING UP EARLIER TODAY. TECHNIQUE: A single portable AP view of the chest was performed. Comparison: 04/03/18. FINDINGS: The heart, mediastinum, and pulmonary vasculature are normal. The lungs are clear. There is no pneumothorax or effusion. The bones appear intact. IMPRESSION: NO ACUTE CHEST PATHOLOGY. JOB NUMBER: [id number] MTDD
--- NOTE | 2018-04-15 15:06 | Rehab Discharge Summary ---
Patient Information - Patient Information Diagnosis: right hip fracture, deconditioning secondary fall Ordered Treatment: PT Evaluate and Treat Surgery: Yes (right cephalo-medullary nail) Date of Surgery: 04/04/18 History: Detail (Pt reports he slipped on the ice on 04/03/18 while going to the mailbox.) Past Medical/Surgical Hx: PAST MEDICAL/SURGICAL HISTORY Past Surgical History hx of fx sternum and 2 cracked ribs in 09/2015 d / t [facility] PMH - Respiratory Hx Respiratory Disorders No PMH - Cardiovascular Hx Cardiovascular Disorders Yes Hx Hypertension Yes PMH - Neuro Hx Neurological Disorders No PMH - GI Hx Gastrointestinal Disorders No PMH - Hx Genitourinary Disorders Yes Hx Renal Disease Yes PMH - Endocrine Hx Endocrine Disorders Yes Hx Diabetes Yes PMH - Musculoskeletal Hx Musculoskeletal Disorders No PMH - Psych Hx Psychiatric Problems No PMH - Hematology/Oncology Hx Hematology/Oncology No Disorders Premorbid Status: Detail (Pt lives with Priscila in a 1 story house with basement. He has 1 step, no railing at the entrance. He has a walk in shower with a seat, no grab bars and a standard height toilet. He reports he has grab bars that can be installed in the shower if needed. Pt is responsible for yard work and snow removal, his completes home mgmt, meal prep and laundry. Prior to fall pt ambulated without assistive device. He has a 2 wheeled walker and quad cane.) Precautions: [place], Fall, Other (Partial weight bearing, right LE) Subjective Information - Subjective Information Per Patient (The patient had no complaints of pain.) Objective Data - Mental Status Patient Orientation: Oriented x3 - Visual Perception Appears within normal limits for therapeutic activities - ROM Not within normal limits (Rhip was not tested secondary to s/p hip fracture. R knee extension was limited to aprox -15 degrees, L knee extension was aprox. - 10 degrees. All other LE AROM was WNL.) - Strength/Tone Not within normal limits (The patient's L LE strength was 5/5. The patient's R hip was functional 3/5, ankle musculature was 4+/5, knee extensors 3/5, knee flexors 4-/5.) - Bed Mobility Independent (The patient was able to complete supine to and from sit transfer.) - Transfers Independent (The patient was independent with sit to and from stand transfer.) - Balance Balance Sitting: Good Balance Standing: Fair - Gait Detail (The patient ambulated with front wheeled walker PWB on R LE with CG of 1 , SBA of 1 for safety a distance of 5 to 10 feet.) Therapy Assessment - Therapy Assessment Detail (The patient was requiring less assistance with bed mobility and transfers and was ambulating short distances with assistance. The patient was transferred from Swing Bed unit to inpatient due to current medical status.) Problem List - Problem List Physical Therapy Problem List: Detail (1) Decreased R LE and hip and bilateral knee ROM. 2) Assistance with bed mobility. 3) Impaired ambulation secondary s/p R hip fracture.) Occupational Therapy Problem List: Detail (1. Decreased Ind with bed mobility and ambulating household distances. 2. Decreased Ind with self cares including dressing and showering. 3. Decreased endurance needed for Ind self cares and functional mobility.) Goals - Goals Physical Therapy Goals: 1) The patient will ambulate with appropriate assistance device PWB on the R LE household distances. (Goal not Met). 2) The paitent will ambulate on stairs using proper technique PWB on R LE supervision for safety. (Goal not met). 3) The patient will be independent with all bed mobility and transfers. (Goal partially met). 4) Increase R LE strength 1/3 muscle grade to increase stability of gait.(Goal not met) Occupational Therapy Goals: 1. Pt will be Ind with bed mobility. 2. Pt will be Ind ambulating 20 feet with walker to allow Ind with self cares. 3. Pt will be safe and Ind with showering. 4. Pt will be Ind with total body dressing. 5. Pt will demonstrate improved endurance needed for safe and Ind ADLs. Plan - Plan Physical Therapy Plan: Patient was discharged from Swing Bed to inpatient status due to medical status. Occupational Therapy Plan: OT 2-4 days per week to address functional mobility, self cares and endurance to allow return home.
--- NOTE | 2018-04-15 15:16 | Rehab Discharge Summary ---
Patient Information - Patient Information Diagnosis: right hip fracture, deconditioning secondary fall Ordered Treatment: OT Evaluate and Treat Surgery: Yes (right cephalo-medullary nail) Date of Surgery: 04/04/18 History: Detail (Pt reports he slipped on the ice on 04/03/18 while going to the mailbox.) Past Medical/Surgical Hx: PAST MEDICAL/SURGICAL HISTORY Past Surgical History hx of fx sternum and 2 cracked ribs in 09/2015 d / t [facility] PMH - Respiratory Hx Respiratory Disorders No PMH - Cardiovascular Hx Cardiovascular Disorders Yes Hx Hypertension Yes PMH - Neuro Hx Neurological Disorders No PMH - GI Hx Gastrointestinal Disorders No PMH - Hx Genitourinary Disorders Yes Hx Renal Disease Yes PMH - Endocrine Hx Endocrine Disorders Yes Hx Diabetes Yes PMH - Musculoskeletal Hx Musculoskeletal Disorders No PMH - Psych Hx Psychiatric Problems No PMH - Hematology/Oncology Hx Hematology/Oncology No Disorders Premorbid Status: Detail (Pt lives with Priscila in a 1 story house with basement. He has 1 step, no railing at the entrance. He has a walk in shower with a seat, no grab bars and a standard height toilet. He reports he has grab bars that can be installed in the shower if needed. Pt is responsible for yard work and snow removal, his completes home mgmt, meal prep and laundry. Prior to fall pt ambulated without assistive device. He has a 2 wheeled walker and quad cane.) Precautions: [place], Fall, Other (Partial weight bearing, right LE) Subjective Information - Subjective Information Per Patient Objective Data - Pain Pain Present: No - Mental Status Patient Orientation: Oriented x3 - Visual Perception Appears within normal limits for therapeutic activities - ROM Within normal limits (Martinez UE AROM WNL) - Strength/Tone Within normal limits (Martinez UE strength 5/5) - Coordination Appears within normal limits for therapeutic activities - Bed Mobility Independent (Ind with supine to sit) - Transfers Independent (Ind with sit to stand from EOB and chair heights.) - Balance Balance Sitting: Good Balance Standing: Fair - Sensation Intact - Gait Detail (Pt able to ambulate several feet with walker and CG assist) - ADL's/IADL's Detail (Pt able to wash face and comb hair, unable to assess showering or dressing as pt did not have clothing available.) Therapy Assessment - Therapy Assessment Detail (Pt was transferred from swing bed to status due to declining medical status.) Problem List - Problem List Physical Therapy Problem List: Detail (1) Decreased R LE and hip and bilateral knee ROM. 2) Assistance with bed mobility. 3) Impaired ambulation secondary s/p R hip fracture.) Occupational Therapy Problem List: Detail (1. Decreased Ind with bed mobility and ambulating household distances. 2. Decreased Ind with self cares including dressing and showering. 3. Decreased endurance needed for Ind self cares and functional mobility.) Goals - Goals Physical Therapy Goals: 1) The patient will ambulate with appropriate assistance device PWB on the R LE household distances. 2) The paitent will ambulate on stairs using proper technique PWB on R LE supervision for safety. 3 ) The patient will be independent with all bed mobility and transfers. 4) Increase R LE strength 1/3 muscle grade to increase stability of gait. Occupational Therapy Goals: Goal Met: 1. Pt will be Ind with bed mobility. Goals not met: 2. Pt will be Ind ambulating 20 feet with walker to allow Ind with self cares. 3. Pt will be safe and Ind with showering. 4. Pt will be Ind with total body dressing. 5. Pt will demonstrate improved endurance needed for safe and Ind ADLs. Prognosis - Prognosis Moderate Plan - Plan Physical Therapy Plan: PT 1-2 times a day M- for gait training on levels and stairs, bed mobility, transfer training and LE strengthening exercises. Occupational Therapy Plan: Pt transferred to IP status for medical reasons. Await further orders as pt stabilizes.
== END 2018-04-14 16:30 | disposition short-term general hospital (02) | DRG 948 ==
LOC: MEDSURG 04-09 16:48
PROVIDERS: ADMIT Internal Medicine; ATTEND Internal Medicine
DX: R53.81 Other malaise (principal); A04.72 Enterocolitis due to Clostridium difficile, not specified as recurrent; Z87.81 Personal history of (healed) traumatic fracture; R55 Syncope and collapse; D64.9 Anemia, unspecified; E87.6 Hypokalemia; E11.9 Type 2 diabetes mellitus without complications; Z79.4 Long term (current) use of insulin; R33.9 Retention of urine, unspecified
CPT/HCPCS: 36416; 71045; 80048; 80053; 81001; 82272; 82550; 82553; 82948; 84132; 84484; 85025; 85027; 87427; 87493; 93005; 93010; 97110; 97116; 97530; 97535; 99306; 99316

== ENCOUNTER 2018-04-14 16:43 | Inpatient (IN) | payer MEDICARE ==
[2018-04-14] MEDS ORDERED: HYDROCODONE/APAP 5/325MG TABLET PO PRN (17:17)
[2018-04-14] MEDS ORDERED: ZINC OXIDE 28.35 GM TUBE TOP PRN (17:17)
[2018-04-14] MEDS ORDERED: ACETAMINOPHEN 325 MG TAB PO PRN (17:17)
[2018-04-14] MEDS: 0.9 % SODIUM CHLORIDE 1000ML 1,000 ML IV SCH (17:56)
[2018-04-14] MEDS: METFORMIN 500 MG TABLET PO SCH (17:58)
[2018-04-14] MEDS: VANCOMYCIN HCL 1 GM VIAL PO SCH ×2 (17:59→19:23)
[2018-04-14] MEDS: APIXABAN 2.5MG TABLET PO SCH (21:43)
[2018-04-14] MEDS: ATORVASTATIN 20 MG TABLET PO SCH (21:43)
[2018-04-14] MEDS: LEVEMIR FLEXTOUCH 100 UNIT/ML INSULIN PEN SQ SCH (22:02)
[2018-04-15] MEDS: VANCOMYCIN HCL 1 GM VIAL PO SCH ×5 (00:19→23:54)
[2018-04-15] MEDS ORDERED: MENTHOL TOP PRN (06:41)
[2018-04-15] MEDS ORDERED: ZINC OXIDE TOP PRN (06:41)
[2018-04-15 07:01] LABS: HEMATOCRIT 26.6 % (42.0-52.0); HEMOGLOBIN 8.4 gm/dl (14.0-18.0); MEAN CELL VOLUME 88.1 fl (81-97); MEAN CORPUSCULAR HEMOGLOBIN 27.8 pg (27-33); MEAN CORPUSCULAR HGB CONC 31.6 g/dl (32-36); MEAN PLATELET VOLUME 10.3 fl (7.4-10.4); PLATELET COUNT 521 K/uL (130-400); RED BLOOD COUNT 3.02 M/uL (4.40-5.70); WHITE BLOOD COUNT W/O DIFF 12.5 K/uL (4.2-12.2)
[2018-04-15 07:19] LABS: CREATININE 1.6 mg/dL (0.7-1.2)
[2018-04-15 07:29] LABS: PLATELET ESTIMATE INCREASED (NORMAL)
[2018-04-15] MEDS ORDERED: POTASSIUM CHLORIDE 20 MEQ TABLET PO ONE (09:22)
[2018-04-15] MEDS: NOVOLOG FLEXPEN (INSULIN ASPART) 100 UNITS/ML SQ SCH ×3 (10:07→18:38)
[2018-04-15] MEDS ORDERED: SOD CHLOR 0.9% WITH KCL 40MEQ 40 MEQ/1,000 ML IV.SOLN IV ONE (10:09)
[2018-04-15] MEDS: APIXABAN 2.5MG TABLET PO SCH ×2 (10:16→21:56)
[2018-04-15] MEDS: BIFIDOBACTERIUM INFANTIS 4 MG CAPSULE PO SCH (10:16)
[2018-04-15] MEDS: FERROUS SULFATE 325 MG TAB PO SCH (10:16)
[2018-04-15] MEDS: METFORMIN 500 MG TABLET PO SCH ×2 (10:18→18:40)
--- NOTE | 2018-04-15 10:49 | History & Physical ---
History of Present Illness - Date of Service Date of Service for History & Physical: 04/15/18 - History of Present Illness Admitting Diagnosis: Syncope; c-diff; dehydration History of Present Illness: 72 year old male patient was a patient at [facility] participating in the Swing Bed program. While up to the commode, patient reported dizziness, and staff noted patient to become pale. Patient was then transferred to the bed and lost consciousness at that time. A rapid response was called, shortly after which patient regained consciousness. Denied any chest pain, shortness of breath, dizziness, headache, blurry vision, or abdominal pain at that time. EKG completed was NSR, VS indicated normotension with no other abnormalities. Other labs drawn at that time indicated WBC 17, Hgb 8.4, electrolytes normal, and troponin negative. Chest x-ray and UA obtained to further evaluate spike in WBC, which were normal. Patient recently had a slip and fall on the ice 04/03/18, resulting in a right hip fracture. Patient was admitted to [facility] and underwent surgery 04/04/18 for a right cephalo-medullary nail placed due to a right intertrochanteric femur hip fracture. While admitted at [facility] he had an episode of hematemesis. Patient was seen by GI, who felt the hematemesis was due to a Laverne-zepeda tear, with no further episodes. GI felt comfortable with further anticoagulation at that time and patient was restarted on home dose of Eliquis 2.5mg BID. Patient also experienced urinary retention after surgery, which did not resolve. Urology was consulted and advised that patient be discharged with a naqvi and to do a voiding trial 5-7 days after discharge. While participating in the swingbed program at [facility], patient was also found to be positive for c-diff. Treatment with oral Vanco was initiated on 04/10/18, and patient has continued to have multiple diarrhea stools daily. Patient was also found to be anemia, and has been taking iron supplements daily, with a rise in hemoglobin noted. Patient's past medical history includes: insulin dependent type 2 diabetes, HTN , hyperlipidemia PCP: Dr. Alex 04/15/18: Patient A&O x 4, resting comfortably in bed. Patient reports occasional nausea, and has not been eating full meals. Patient denies dizziness , chest pain, or shortness of breath while lying in bed. Continues to have adequate urine output in naqvi. Patient was placed on telemetry monitor, no abnormalities have been seen. ECHO was completed this morning and patient to see cardiology as well. Replacing electrolytes with gentle IV hydration. VS have remained stable overnight. Travel Screening - Travel/Exposure Within Last 30 Days Have you traveled within the last 30 days?: No - Travel/Exposure Within Last Year Have you traveled outside the [place] in the last year?: No - Additonal Travel Details Have you been exposed to anyone with a communicable illness?: No - Travel Symptoms Symptom Screening: None Review of Systems Reviewed: No additional complaints except as noted below Constitutional: Reports: Weakness. Denies: Chills, Fever Cardiovascular: Denies: Dyspnea on exertion, Edema, Palpitations Gastrointestinal: Reports: Abdominal pain, Diarrhea Genitourinary: Reports: Other (naqvi) Neurological: Reports: Abnormal gait, Weakness Past Medical History - SOCIAL HISTORY Smoking Status: Former smoker - RESPIRATORY Hx Respiratory Disorders: No - CARDIOVASCULAR Hx Cardio Disorders: Yes Hx Hypertension: Yes - NEURO Hx Neuro Disorders: No - GI Hx GI Disorders: No - Hx Genitourinary Disorders: Yes Hx Renal Disease: Yes - ENDOCRINE Hx Endocrine Disorders: Yes Hx Diabetes: Yes - MUSCULOSKELETAL Hx Musculoskeletal Disorders: No - PSYCH Hx Psych Problems: No - HEMATOLOGY/ONCOLOGY Hx Hematology/Oncology Disorders: No H&P Meds/Allergies - Allergies Allergies: Allergies Allergy/AdvReac Type Severity Reaction Status Date / Time No Known Drug Allergies Allergy Verified 04/03/18 10:41 - Home Medications Previous Rx's Medication Instructions Recorded Acetaminophen [Tylenol 325Mg] 650 mg PO Q6H PRN tablet 04/14/18 Apixaban [Eliquis] 2.5 mg PO BID tablet 04/14/18 Bifidobacterium Infantis [Align] 4 mg PO DAILY capsule 04/14/18 Ferrous Sulfate [Iron] 325 mg PO DAILY tablet 04/14/18 Hydrocodone/APAP 5/325Mg [[place] 1 each PO Q6H PRN tab 04/14/18 5Mg/325Mg] Insulin Aspart [Novolog Flexpen] 1 unit SQ TIDINS ml 04/14/18 Insulin Detemir [Levemir Flextouch] 28 unit SQ DAILY syringe 04/14/18 Metformin HCl [Glucophage Ir] 1,000 mg PO 1200,2200 tablet 02/03/19 Potassium Chloride [Klor-Con] 20 meq PO DAILY tablet.sa 04/14/18 Tamsulosin HCl [Flomax] 0.4 mg PO QHS cap.er.24h 04/14/18 Zinc Oxide [Desitin] 1 gm TOP ASDIR PRN tube 04/14/18 - Active Medications Active Medications: Current Medications Acetaminophen (Tylenol 325mg) 650 mg PO Q6H PRN PRN Reason: PAIN - MILD (1-4) Hydrocodone Bitart/Acetaminophen ([place] 5mg/325mg) 1 each PO Q6H PRN PRN Reason: PAIN - MOD TO SEVERE (5-10) Apixaban (Eliquis) 2.5 mg PO BID FOR[facility]LY [facility], [facility]1983 Last Admin: 04/15/18 10:16 Dose: 2.5 mg Atorvastatin Calcium (Lipitor) 20 mg PO QHS FOR[facility]LY [facility], [facility]1983 Last Admin: 04/14/18 21:43 Dose: 20 mg Calamine/Phenol (Calmoseptine Ointment) 3.5 gm TOP ASDIR PRN PRN Reason: RASH Ferrous Sulfate (Iron) 325 mg PO DAILY FOR[facility]LY [facility], [facility]1983 Last Admin: 04/15/18 10:16 Dose: 325 mg Sodium Chloride () 1,000 mls @ 50 mls/hr IV .Q20H [facility], [facility] Last Infusion: 04/15/18 10:16 Dose: 0 mls/hr Potassium Chloride/Sodium Chloride (Potassium Chl 40meq/) 40 meq in 1,000 mls @ 50 mls/hr IV NOW ONE Stop: 04/16/18 06:08 Last Admin: 04/15/18 10:17 Dose: 50 mls/hr Insulin Aspart (Novolog Flexpen) 1 unit SQ TIDINS [facility], [facility]; Protocol Last Admin: 04/15/18 10:07 Dose: Not Given Insulin Detemir (Levemir Flextouch) 28 unit SQ QHS [facility], [facility] Last Admin: 04/14/18 22:02 Dose: 28 unit Metformin HCl (Glucophage Ir) 1,000 mg PO BIDWM [facility], [facility] Last Admin: 04/15/18 10:18 Dose: 1,000 mg Potassium Chloride (Klor-Con) 20 meq PO DAILY [facility], [facility] Vancomycin HCl (Vanco) 125 mg PO Q6HR [facility] Stop: 04/19/18 17:31 Zinc Oxide (Desitin) 10 gm TOP ASDIR PRN PRN Reason: RASH Physical Exam - Vital Signs Vital Signs: Vital Signs - Last 24 Hrs Temp Pulse Pulse Resp BP Pulse Ox 04/15/18 08:08 98.5 F 75 79 14 132/63 94 L 04/15/18 06:00 98.2 F 79 16 118/64 93 L 04/14/18 22:00 98.4 F 81 17 106/52 95 04/14/18 21:00 81 20 04/14/18 17:00 97.6 F 83 20 167/88 - General General Appearance: Alert, Oriented x3, Cooperative, No acute distress - Head Head exam: Atraumatic - Eye Eye exam: Normal appearance, PERRL - ENT ENT exam: Mucous membranes moist Ear exam: Normal external inspection Mouth exam: Normal external inspection - Respiratory Respiratory exam: Normal lung sounds bilaterally - Cardiovascular Cardiovascular Exam: Regular rate, Normal rhythm, Normal heart sounds Peripheral Pulses: 2+: Radial (R), Radial (L), Dorsalis Pedis (R), Dorsalis Pedis (L) - GI/Abdominal GI/Abdominal exam: Soft, Hyperactive bowel sounds, Tenderness (generalized tenderness with palpation) - Rectal Rectal exam: Deferred - exam: Other (naqvi) - Extremities Extremities exam: Normal inspection. negative: Pedal edema, Tenderness Image of Full Body: 1 - aquacel covering surgical incision, mild shadowing on dressing - Neurological Neurological exam: Abnormal gait, Oriented X3 - Psychiatric Psychiatric exam: Normal affect, Normal mood - Skin Skin exam: Abrasion, Pallor Results - Labs Result Diagrams: 04/15/18 06:45 04/15/18 06:45 Labs Last 24 Hours: Laboratory Results - last 24 hr 04/15/18 04/15/18 06:45 06:45 WBC 12.5 H RBC 3.02 L Hgb 8.4 L Hct 26.6 L MCV 88.1 MCH 27.8 MCHC 31.6 L RDW 13.0 Plt Count 521 H MPV 10.3 Neutrophils % 71.0 Band Neutrophils % 1.0 Eosinophils % Not Reportable Basophils % Not Reportable Lymphocytes 16.0 Monocytes 9.0 Platelet Estimate Increased RBC Morphology Normal Eosinophil Count 3.0 Sodium 142 Potassium 3.2 L Chloride 107 Carbon Dioxide 22.0 Anion Gap 13.0 BUN 37 H Creatinine 1.6 H Estimated GFR 45 Random Glucose 80 Calcium 8.2 L VTE H&P Assessment - Risk for VTE Risk for VTE: Yes Risk Level: Moderate Risk Assessment Date: 04/15/18 Risk Assessment Time: 10:51 VTE Orders Placed or Will Be Placed: Yes Plan - Inpatient Certification Inpatient Certification: Admit to inpatient care: Based on my medical assessment, after consideration of patient's risk factors (age, co-morbidities and patient presenting symptoms and acuity), I expect that this patient will remain in the hospital greater than or equal to two midnights and that the services needed warrant inpatient care because: Patient Risk Factors: [age, recent surgery, c-diff, dehydration, syncope] Estimated length of stay: The patient may reasonably be expected to be discharged or transferred to a hospital within 96 hours after admission to [facility]. Services needed: [telemetry monitor, cardiology consult, IV hydration, electrolyte replacement] Post hospital care (if known): [] I certify that my determination is in accordance with my understanding of Medicare requirements for reasonable and necessary inpatient services. 04/15/18 10:51 - Detailed Diagnosis and Plan (1) Syncope Current Visit: Yes Status: Acute Base Code: R55 - SYNCOPE AND COLLAPSE Comment: 04/15/18: - Syncopal episode witnessed by staff - Troponin negative x 2 - Chest x-ray negative - monitoring manager placed - ECHO results and cardiology consult pending (2) C. difficile diarrhea Current Visit: No Status: Acute Base Code: A04.72 - ENTEROCOLITIS D/T CLOSTRIDIUM DIFFICILE, NOT SPCF RECUR Comment: 04/15/18: -Stool cultures positive for c-diff on admission -Frequent loose stools since admission -Vanco 125mg PO q6h x 10 days, will complete course 04/19/09 -Contact isolation -Probiotic daily -Encourage increased PO fluid intake (3) Dehydration Current Visit: Yes Status: Acute Base Code: E86.0 - DEHYDRATION Comment: : - Due to frequent stools and decreased PO intake - Gentle IV hydration with NS @ 50ml/hr - Encouraged continued PO intake (4) Weakness Current Visit: No Status: Acute Base Code: R53.1 - WEAKNESS Comment: : - Continued deconditioning and weakness with minimal ambulation, dizziness when getting up to commode - Will hold further PT/OT interventions until cleared by cardiology (5) S/P right hip fracture Current Visit: No Status: Acute Base Code: Z87.81 - PERSONAL HISTORY OF ( HEALED) TRAUMATIC FRACTURE Comment: 04/15/18: Patient had a slip and fall on the ice 04/03. Was admitted to [facility] for a right intertrochanteric femur hip fracture. -Surgical repair 04/04 with a right cephalo-medullary nail placed -[place] 5/325 q6h prn pain -Tylenol as needed for mild pain (6) Diabetes type 2, controlled Current Visit: No Status: Acute Base Code: E11.9 - TYPE 2 DIABETES MELLITUS WITHOUT COMPLICATIONS Comment: 04/15/18: History of type 2 diabetes with insulin use -ADA diet -Metformin 850mg BID -Accucheck TID -Novolog sliding scale, adjusted to patient's home insulin regimen (7) Hypokalemia Current Visit: No Status: Acute Base Code: E87.6 - HYPOKALEMIA Comment: 04/14/18: -K 3.2 today, likely due to recurrent diarrhea -Will hold scheduled daily 20mEq K PO today due to patient reports of nausea -Will replace with NS 40mEq K IVPB (8) DVT prophylaxis Current Visit: No Status: Acute Base Code: [id number] - Comment: 04/15/18: -Patient was started on Eliquis 2.5mg BID at [facility] for DVT prophylaxis post-op -Will continue with Eliquis at this time (9) DNR (do not resuscitate) Current Visit: No Status: Acute Base Code: Z66 - DO NOT RESUSCITATE Comment: 04/15/18: Patient is a DNR
[2018-04-15] MEDS: POTASSIUM CHLORIDE 20 MEQ TABLET PO SCH (18:38)
[2018-04-15] MEDS: LEVEMIR FLEXTOUCH 100 UNIT/ML INSULIN PEN SQ SCH (21:56)
[2018-04-15] MEDS: ATORVASTATIN 20 MG TABLET PO SCH (21:56)
[2018-04-16] MEDS: VANCOMYCIN HCL 1 GM VIAL PO SCH ×3 (06:19→17:50)
[2018-04-16 06:41] LABS: HEMATOCRIT 26.5 % (42.0-52.0); HEMOGLOBIN 8.3 gm/dl (14.0-18.0); MEAN CELL VOLUME 89.2 fl (81-97); MEAN CORPUSCULAR HEMOGLOBIN 27.9 pg (27-33); MEAN CORPUSCULAR HGB CONC 31.3 g/dl (32-36); MEAN PLATELET VOLUME 10.1 fl (7.4-10.4); PLATELET COUNT 524 K/uL (130-400); RED BLOOD COUNT 2.97 M/uL (4.40-5.70); RED CELL DISTRIBUTION WIDTH 13.2 % (11.5-14.5)
[2018-04-16 06:54] LABS: CREATININE 1.4 mg/dL (0.7-1.2)
[2018-04-16 07:06] LABS: PLATELET ESTIMATE INCREASED (NORMAL)
[2018-04-16] MEDS: NOVOLOG FLEXPEN (INSULIN ASPART) 100 UNITS/ML SQ SCH ×3 (08:07→17:22)
[2018-04-16] MEDS: METFORMIN 500 MG TABLET PO SCH ×2 (08:07→17:50)
--- NOTE | 2018-04-16 08:41 | Cardiology Consult ---
DATE OF CONSULTATION: 04/15/2018 HISTORY OF PRESENT ILLNESS: Mr. Albright is a very pleasant 72-year-old male with past medical history of hyperlipidemia and Type 2 diabetes mellitus. He has been in subacute rehabilitation following the hip fracture he suffered after a mechanical fall. He is status post surgical repair on 04/04/18. During his hospitalization at [facility] he was also found to have a GI bleed thought to be secondary to [place]verne[place]Rivera tears. GI was consulted and no further work-up was needed. He was discharged to [facility] with iron supplementation. He was admitted to [facility] yesterday after an episode of syncope. He was using the commode and felt lightheaded when he stood up. He then believes he lost consciousness. The patient has been diagnosed with C. difficile and is on Vancomycin. He has been having numerous loose, watery stools daily. He has also been nauseated and has not been eating or drinking well. On admission EKG demonstrated sinus rhythm with normal axis intervals and no acute ST or T-wave changes. Blood pressure was stable. Troponin was negative times two. Hemoglobin was 8.4 which has improved from 7.8 on discharge. He is taking daily iron supplements. BUN 37 and p.m. creatinine 1.6 which was worsened from 1.5 on discharge from [facility]. Chest x-ray suggested no acute pathology. He has been working with PT and OT and has had one other episode of lightheadedness, but no syncope. He denies any complaints of chest pain, shortness of breath, palpitations, BNP, PND, orthopnea, or peripheral edema. 2D echocardiogram performed during this admission was reviewed with Dr. Echevarria. He has preserved LV systolic function with an ejection fraction of about 60% and no significant valvular abnormalities. He has no known history of hypertension, OK, CAD, DVT, PE, CVA, TIA, or arrhythmia. Denies prior stress testing. 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 ALLERGIES: No known drug allergies. MEDICATIONS: Please see current medication list. FAMILY HISTORY: No significant family history of CAD. SOCIAL HISTORY: Former tobacco use. Denies alcohol use or illicit drug use. PAST MEDICAL HISTORY: Hyperlipidemia and Type 2 diabetes mellitus. REVIEW OF SYSTEMS: Constitutional: Complains of lightheadedness, dizziness, and syncope. No fevers, chills, or sweats. Eyes: No recent visual problems. ENT: No ear pain, nasal congestion, or sore throat. Respiratory: No shortness of breath or cough. Cardiovascular: No chest pain, shortness of breath, palpitations, PND, or orthopnea. Peripheral vascular: No peripheral edema or claudication. Gastrointestinal: Complains of nausea, vomiting, and diarrhea. Musculoskeletal: No back pain, neck pain, joint pain, muscle pain, or decreased range of motion. Integumentary: No rash, pruritus, or abrasions. Neurologic: Denies paresthesias or weakness. Psychiatric: No anxiety or depression. PHYSICAL EXAMINATION: VITALS: Temperature is 99.7, blood pressure is 134/69 mmHg, heart rate is 83 b.p.m., respiratory rate is 14 per minute SPO2 is 94%, weight is 151 pounds, height is 5'5". GENERAL: Alert and oriented, ill appearing, no acute distress. HEAD: Normocephalic, atraumatic. ENT: EOMI, PERRL. No scleral icterus, erythema. Dura free from erythema, lesions. NECK: Supple, nontender, no carotid bruits, no JVD. RESPIRATORY: Clear to auscultation, nonlabored respiration. No wheezing, rhonchi, rales. CARDIAC: Regular rate and rhythm. No murmurs, rubs or gallops audible. PERIPHERAL VASCULAR: No peripheral edema. No cyanosis, clubbing. The peripheral pulse is 2+ and symmetric. ABDOMEN: Soft, nontender, nondistended, normal bowel sounds. SKIN: Warm, dry and pink. Postop changes of the right hip. MSK: Not observed as patient is on bedrest post hip fracture repair. NEUROLOGIC: Awake, alert, and oriented times three. PSYCHIATRIC: Cooperative, appropriate mood and affect. IMAGING: Echocardiogram: Preliminary report suggests preserved LV systolic function and no significant valvular abnormalities. EKG: Sinus rhythm with no acute ST or T-wave changes, rate 78 b.p.m. Chest x-ray: No acute pathology. LABS: WBC 12.5, hemoglobin 8.4, hematocrit 26.6, platelets 521, sodium 142, potassium 3.2, chloride 107, CO2 of 22, BUN 37, creatinine 1.6, glucose 80. Troponin negative times two. CKMB 1.5. ASSESSMENT AND PLANT: SYNCOPE. THIS IS A 72-YEAR-OLD MALE WITH PAST MEDICAL HISTORY OF HYPERLIPIDEMIA , TYPE 2 DIABETES MELLITUS, AND FORMER TOBACCO ABUSE WHO PRESENTED TO [facility] AFTER A SYNCOPAL EPISODE. ON 04/03/18 THE PATIENT SUFFERED A MECHANICAL FALL AND BROKE HIS RIGHT HIP. HE UNDERWENT SURGICAL REPAIR ON 04/04/18 AT [facility]. HE WAS ALSO FOUND TO HAVE A GI BLEED THOUGHT TO BE SECONDARY TO [place]ERNE-RIVERA TEARS FROM NAUSEA AND VOMITING. HEMOGLOBIN ON DISCHARGE WAS 7.8 AND NO TRANSFUSION WAS NEEDED. SINCE BEING AT [facility] HE HAS BEEN DIAGNOSED WITH C. DIFFICILE AND IS ON VANCOMYCIN. HE HAS BEEN HAVING LOOSE WATERY STOOLS MULTIPLE TIMES PER DAY. HE HAS ALSO BEEN NAUSEATED WITH POOR PO INTAKE. WHEN STANDING UP FROM THE COMMODE YESTERDAY HE REPORTED LIGHTHEADEDNESS FOLLOWED BY A BRIEF EPISODE OF SYNCOPE. HE DENIES ANY PRECEDING CHEST PAIN, PALPITATIONS, OR SHORTNESS OF BREATH. EKG ON ADMISSION DEMONSTRATES SINUS RHYTHM WITH NO ACUTE ST OR T-WAVE CHANGES. NO ARRHYTHMIAS NOTED ON TELEMETRY. BLOOD PRESSURE HAS BEEN STABLE. TROPONIN NEGATIVE TIMES TWO WITH NORMAL CKMB. ECHOCARDIOGRAM SUGGESTS PRESERVED LV SYSTOLIC FUNCTION WITH NO SIGNIFICANT VALVULAR ABNORMALITIES. AT THIS TIME THE CAUSE OF SYNCOPE IS LIKELY DEHYDRATION SECONDARY TO C. DIFFICILE AND POOR PO INTAKE. NO FURTHER CARDIAC TESTING IS NEEDED AT THIS TIME. HE CAN RESUME PT AND OT SCHEDULED. RECOMMEND CHECKING ORTHOSTATIC VITALS. HE CAN FOLLOW-UP WITH US IN THE OFFICE AN OUTPATIENT IN THREE TO FOUR WEEKS FOR POSSIBLE STRESS TESTING OR CARDIAC MONITORING IF SYNCOPE CONTINUES TO RECUR. Thank you for this consultation. JOB NUMBER: [id number] [facility]
--- NOTE | 2018-04-16 09:46 | Rehab Evaluation ---
Patient Information - Patient Information Diagnosis: Syncope, deconditioning s/p R hip fracture Ordered Treatment: PT Evaluate and Treat Status: Initial Evaluation Surgery: Yes (right cephalo-medullary nail) Date of Surgery: 04/04/18 Past Medical/Surgical Hx: PAST MEDICAL/SURGICAL HISTORY Past Surgical History hx of fx sternum and 2 cracked ribs in 09/2015 d / t [facility] PMH - Respiratory Hx Respiratory Disorders No PMH - Cardiovascular Hx Cardiovascular Disorders Yes Hx Hypertension Yes PMH - Neuro Hx Neurological Disorders No PMH - GI Hx Gastrointestinal Disorders No PMH - Hx Genitourinary Disorders Yes Hx Renal Disease Yes Comment: retention PMH - Endocrine Hx Endocrine Disorders Yes Hx Diabetes Yes PMH - Musculoskeletal Hx Musculoskeletal Disorders No PMH - Psych Hx Psychiatric Problems No PMH - Hematology/Oncology Hx Hematology/Oncology No Disorders Premorbid Status: Detail (The patient lives with Priscila in a 1 story house with basement. He has 1 step, no railing at the entrance. He has a walk in shower with a seat, no grab bars and a standard height toilet. He reports he has grab bars that can be installed in the shower if needed. Pt. is responsible for yard work and snow removal, his completes home management, meal prep and laundry. Prior to fall patient ambulated without assistive device. Patient has a 2 wheeled walker and a quad cane.) Precautions: [place], Fall, Other (PWB R LE.) - Time With Patient Total Time Spent With Patient (Min): 25 Treatment Procedures: Detail (Initial Evaluation,) Subjective Information - Subjective Information Per Patient (The patient had no complaints of pain. The patient had complaints of lightheadedness with positional changes.) Objective Data - Mental Status Patient Orientation: Oriented x3 - Visual Perception Appears within normal limits for therapeutic activities - ROM Not within normal limits (The patient's R hip AROM was withing functional limits. R knee extension was limited to aprox -15 degrees, L knee extension was aprox. -10 degrees. All other LE AROM was WNL.) - Strength/Tone Not within normal limits (The patient's R hip strength was generally 3+ to 4-/5 , knee extensors 3/5, knee flexors 4/5, ankle musculature was 4+/5. All other L LE strength was 5/5.) - Bed Mobility Independent (The patient was independent with supine to and from sit transfer and scooting up in bed with use of trapeze. The patient's blood pressure decreased significantly with sitting up. Refer to nursing notes for specific blood pressure measurements. The patient's blood pressure returned to normal level after aprox. 5 minutes.) - Transfers Independent (The patient was independent with sit to and from stand transfer. The patient's blood pressure dropped significantly with sit to stand . Patient stood for less then a minute due to lightheadedness. (refer to nursing notes for specific blood pressure measures) - Balance Balance Sitting: Good Balance Standing: Fair - Gait Detail (The patient did not ambulate due to lightheadedness.) Therapy Assessment - Therapy Assessment Detail (The patient's mobility was limited secondary to orthostatic hypotension. Feel the patient will progress well with mobility once medically stable. Will continue to monitor patient's status.) Problem List - Problem List Physical Therapy Problem List: Detail (1) Lightheadness with positional changes. 2) Decreased R LE strength and decreased bilateral knee ROM. 3) Impaired ambulation s/p fracture.) Goals - Goals Physical Therapy Goals: 1) The patient will ambulate household distances with CG of 1, PWB on the R. 2) The patient will be independent/supervision with all transfers, including car, tub and toilet transfers. 3) The patient will ambulate on stairs using proper technique with supervision for safety. 4) Increased R LE strength 1/3 muscle grade to increase stability of gait. Prognosis - Prognosis Moderate Plan - Plan Physical Therapy Plan: PT daily ( as medically able) M-F gait training, transfer training and LE strengthening exercises.
--- NOTE | 2018-04-16 09:51 | Rehab Evaluation ---
Patient Information - Patient Information Diagnosis: syncope, c-diff, dehydration Ordered Treatment: OT Evaluate and Treat Status: Initial Evaluation Surgery: Yes (right cephalo-medullay nail) Date of Surgery: 04/04/18 History: Detail (Pt fell on the ice on 04/03/18 and sustained a right hip fracture.) Past Medical/Surgical Hx: PAST MEDICAL/SURGICAL HISTORY Past Surgical History hx of fx sternum and 2 cracked ribs in 09/2015 d / t [facility]va PMH - Respiratory Hx Respiratory Disorders No PMH - Cardiovascular Hx Cardiovascular Disorders Yes Hx Hypertension Yes PMH - Neuro Hx Neurological Disorders No PMH - GI Hx Gastrointestinal Disorders No PMH - Hx Genitourinary Disorders Yes Hx Renal Disease Yes Comment: retention PMH - Endocrine Hx Endocrine Disorders Yes Hx Diabetes Yes PMH - Musculoskeletal Hx Musculoskeletal Disorders No PMH - Psych Hx Psychiatric Problems No PMH - Hematology/Oncology Hx Hematology/Oncology No Disorders Premorbid Status: Detail (Pt lives with in a 1 story house with basement. He has 1 step, no railing at the entrance. He has a walk in shower with a seat , no grab bars and a standard height toilet. He is responsible for yard work and snow removal, his completes home mgmt, meal prep and laundry. Prior to fall pt was ambulatory without an assistive device. He has a 2 wheeled walker and quad cane.) Precautions: [place], Fall, Other (PWB right LE) - Time With Patient Total Time Spent With Patient (Min): 25 Treatment Procedures: Detail (OT eval low complexity) Subjective Information - Subjective Information Per Patient Objective Data - Pain Pain Present: No - Mental Status Patient Orientation: Oriented x3 - Visual Perception Appears within normal limits for therapeutic activities - ROM Within normal limits (Martinez UE AROM WNL) - Strength/Tone Within normal limits (Martinez UE strength WNL) - Coordination Appears within normal limits for therapeutic activities - Bed Mobility Independent (Ind with supine to sit. Pt reported feeling light headed with supine to sit and his BP dropped significantly (see nursing documentation).) - Transfers Independent (Ind with sit to stand at EOB although pt had a significant drop in BP with standing (see nursing documentation) and he reported feeling very light headed.) - Balance Balance Sitting: Good Balance Standing: Fair - Sensation Intact - Gait Detail (Not assessed due to drop in blood pressure and pt c/o lightheadedness.) - ADL's/IADL's Detail (Not assessed due to pt feeling very light headed.) Therapy Assessment - Therapy Assessment Detail (Pt presents with WNL UE strength and ROM, Ind bed mobility; will need to further assess mobility and ADLs when blood pressure is improved with position changes.) Problem List - Problem List Occupational Therapy Problem List: Detail (Decreased Ind with ADLs and functional mobility.) Goals - Goals Occupational Therapy Goals: Will further assess functional mobility and self care skills as able. Goals will be determined after initial assessment is completed. Prognosis - Prognosis Good Plan - Plan Occupational Therapy Plan: OT will continue to assess and create goals as medical status allows.
[2018-04-16] MEDS ORDERED: 0.9 % SODIUM CHLORIDE 1000ML 1,000 ML IV ONE (10:11)
[2018-04-16] MEDS ORDERED: CALCIUM CARBONATE 500 MG TAB.CHEW PO SCH (10:15)
--- NOTE | 2018-04-16 10:40 | Physician Progress Note ---
Subjective - Date Date of Physician Progress Note: 04/16/18 - Subjective Subjective Comment: Reports feeling better today. Hasn't had any diarrhea overnight. Denies nausea or abdominal pain. Pain to right hip is "tolerable". Reported dizzy when doing orthostatic blood pressures. States that he has had some "dizzy spells" in the past prior to breaking his hip. Stated "I have told my doctor about it but he doesn't listen to me." Objective - Vital Signs Vital Signs: Vital Signs - Last 24 Hrs Temp Pulse Pulse Resp BP BP Pulse Ox 04/16/18 08:42 98.0 F 72 16 118/67 98 04/16/18 08:12 92 H 18 04/16/18 06:00 98.2 F 75 17 142/70 98 04/15/18 22:00 98.0 F 75 17 124/58 92 L 04/15/18 21:00 83 16 04/15/18 12:13 99.7 F H 83 14 134/69 94 L 04/15/18 11:00 98.5 F 132/63 - General General Appearance: Alert, Oriented x3, Cooperative, No acute distress - Head Head exam: Atraumatic - Eye Eye exam: Normal appearance, PERRL - ENT ENT exam: Mucous membranes moist Ear exam: Normal external inspection Mouth exam: Normal external inspection - Respiratory Respiratory exam: Normal lung sounds bilaterally - Cardiovascular Cardiovascular Exam: Regular rate, Normal rhythm, Normal heart sounds Peripheral Pulses: 2+: Radial (R), Radial (L), Dorsalis Pedis (R), Dorsalis Pedis (L) - GI/Abdominal GI/Abdominal exam: Soft, Normal bowel sounds, Tenderness (generalized tenderness with palpation) - Rectal Rectal exam: Deferred - exam: Other (naqvi, no hematuria noted) - Extremities Extremities exam: Normal inspection. negative: Pedal edema, Tenderness - Neurological Neurological exam: Abnormal gait, Oriented X3 - Psychiatric Psychiatric exam: Normal affect, Normal mood - Skin Skin exam: Abrasion, Pallor Assessment and Plan - Assessment and Plan (1) Dehydration Current Visit: Yes Status: Acute Base Code: E86.0 - DEHYDRATION Comment: : - Due to frequent stools and decreased PO intake - IV NS @ 100 ml/hr x 1 L - Encouraged continued PO intake (2) Syncope Current Visit: Yes Status: Acute Base Code: R55 - SYNCOPE AND COLLAPSE Comment: 04/16/18: - Orthostatic Hypotension: Laying 119/58, Sitting 87/47, Standing 76/41 - Hx of Syncopal episode witnessed by staff - potline monitor in place - Preliminary ECHO report: Preserved LV function with EF 60% - Cardiology consult: Recommend f/u as outpatient in 3-4 weeks if Syncope still occuring - BUN 32, Creat 1.4, Hgb 8.3 - IV NS @ 100 ml/hr x 1 L (3) C. difficile diarrhea Current Visit: Yes Status: Acute Base Code: A04.72 - ENTEROCOLITIS D/T CLOSTRIDIUM DIFFICILE, NOT SPCF RECUR Comment: 04/16/18: -Stool cultures positive for c-diff on admission -Frequent loose stools continued -Vanco 125mg PO q6h x 10 days, will complete course 04/19/09 -Contact isolation -Probiotic daily -Encourage increased PO fluid intake -IV NS @ 100ml/hr x 1 L (4) DNR (do not resuscitate) Current Visit: Yes Status: Acute Base Code: Z66 - DO NOT RESUSCITATE Comment: 04/16/18: Patient is a DNR (5) DVT prophylaxis Current Visit: Yes Status: Acute Base Code: [id number] - Comment: 04/16/18: -Patient was started on Eliquis 2.5mg BID at [facility] for DVT prophylaxis post-op -Will continue with Eliquis at this time (6) Diabetes type 2, controlled Current Visit: Yes Status: Acute Base Code: E11.9 - TYPE 2 DIABETES MELLITUS WITHOUT COMPLICATIONS Comment: 04/16/18: History of type 2 diabetes with insulin use -ADA diet -Metformin 850mg BID -Accucheck TID -Novolog sliding scale, adjusted to patient's home insulin regimen (7) Low hemoglobin Current Visit: Yes Status: Acute Base Code: D64.9 - ANEMIA, UNSPECIFIED Comment: 04/16/18: - Hgb 8.3 today, (10.3 on 04/03/18, 7.8 on D/C from [facility] on 04/10/18) - On Eliquis 2.5mg BID per Orthopedic Surgeon (Dr. Perez) for DVT prophylaxis - Stool occult negative - No obvious signs of bleeding - Continue daily iron supplement (8) S/P right hip fracture Current Visit: Yes Status: Acute Base Code: Z87.81 - PERSONAL HISTORY OF ( HEALED) TRAUMATIC FRACTURE Comment: 04/16/18: Patient had a slip and fall on the ice 04/03. Was admitted to [facility] for a right intertrochanteric femur hip fracture. -Surgical repair 04/04 with a right cephalo-medullary nail placed -[place] 5/325 q6h prn pain -Tylenol as needed for mild pain -F/u with orthopedic surgeon on Sunday04/22/18 -PT/OT working with pt (9) Urinary retention Current Visit: Yes Status: Acute Base Code: R33.9 - RETENTION OF URINE, UNSPECIFIED Comment: 04/16/18: -Patient had urinary retention post-op -Discharged with naqvi catheter, started on Flomax, and instructed to follow-up with urology in 5-7 days for a voiding trial -Flomax stopped d/t syncope -Dr. Sanchez saw pt and recommended to leave naqvi in until pt up walking around (10) Weakness Current Visit: Yes Status: Acute Base Code: R53.1 - WEAKNESS Comment: : - Continued deconditioning and weakness with minimal ambulation, dizziness when getting up to commode - PT/OT cleared by cardiology (11) Skin maceration Current Visit: Yes Status: Acute Base Code: L98.8 - OTH DISRD OF THE SKIN AND SUBCUTANEOUS TISSUE Comment: 04/16/18: - Frequent incontinent stooling d/t C. diff infection - Bilateral buttocks skin breakdown d/t excess moisture - Trial Hydrocortisone 1% twice a day to macerated area, followed by Calmoseptine - Calmoseptine after each stooling episode - Consider fecal containment system (rectal tube) if stooling continues - Naqvi present, will continue with naqvi while skin breakdown is present - Enccourage Turn and Repositioning at least q. 2 hours (12) Hypocalcemia Current Visit: Yes Status: Acute Base Code: E83.51 - HYPOCALCEMIA Comment : 04/16/18: - Calcium 7.9 - PO Calcium 500mg + Vitamin D q. 12 hours Results - Labs Result Diagrams: 04/16/18 06:35 04/16/18 06:35 Labs Last 24 Hours: Laboratory Results - last 24 hr 04/16/18 04/16/18 06:35 06:35 WBC 11.0 RBC 2.97 L Hgb 8.3 L Hct 26.5 L MCV 89.2 MCH 27.9 MCHC 31.3 L RDW 13.2 Plt Count 524 H MPV 10.1 Neutrophils % 77.0 Band Neutrophils % 2.0 Eosinophils % Not Reportable Basophils % Not Reportable Lymphocytes 15.0 L Monocytes 5.0 Platelet Estimate Increased RBC Morphology Normal Eosinophil Count 1.0 Sodium 141 Potassium 3.9 Chloride 107 Carbon Dioxide 20.0 L Anion Gap 14.0 BUN 32 H Creatinine 1.4 H Estimated GFR 53 Random Glucose 222 H Calcium 7.9 L DVT/PE Assessment - Risk for VTE Risk for VTE: Yes Risk Level: Moderate Risk Assessment Date: 04/15/18 Risk Assessment Time: 10:51 VTE Orders Placed or Will Be Placed: Yes - Active Medicaitons Current Medications: Current Medications Acetaminophen (Tylenol 325mg) 650 mg PO Q6H PRN PRN Reason: PAIN - MILD (1-4) Hydrocodone Bitart/Acetaminophen ([place] 5mg/325mg) 1 each PO Q6H PRN PRN Reason: PAIN - MOD TO SEVERE (5-10) Apixaban (Eliquis) 2.5 mg PO BID [facility] Last Admin: 04/15/18 21:56 Dose: 2.5 mg Atorvastatin Calcium (Lipitor) 20 mg PO QHS [facility] Last Admin: 04/15/18 21:56 Dose: 20 mg Calamine/Phenol (Calmoseptine Ointment) 3.5 gm TOP ASDIR PRN PRN Reason: RASH Calcium Carbonate/Glycine (Tums) 500 mg PO DAILY [facility] Ferrous Sulfate (Iron) 325 mg PO DAILY [facility] Last Admin: 04/15/18 10:16 Dose: 325 mg Sodium Chloride () 1,000 mls @ 100 mls/hr IV .Q10H ONE Stop: 04/16/18 20:10 Insulin Aspart (Novolog Flexpen) 1 unit SQ TIDINS [facility]; Protocol Last Admin: 04/16/18 08:07 Dose: 6 unit Insulin Detemir (Levemir Flextouch) 28 unit SQ DAILY [facility] Metformin HCl (Glucophage Ir) 1,000 mg PO BIDWM [facility] Last Admin: 04/16/18 08:07 Dose: 1,000 mg Potassium Chloride (Klor-Con) 20 meq PO DAILY [facility] Last Admin: 04/15/18 18:38 Dose: Not Given Vancomycin HCl (Vanco) 125 mg PO Q6HR JOANNE Stop: 04/19/18 17:31 Last Admin: 04/16/18 06:19 Dose: 125 mg Zinc Oxide (Desitin) 10 gm TOP ASDIR PRN PRN Reason: RASH AMI Plan - Labs Result Diagrams: 04/16/18 06:35 04/16/18 06:35
[2018-04-16] MEDS: POTASSIUM CHLORIDE 20 MEQ TABLET PO SCH (10:53)
[2018-04-16] MEDS: BIFIDOBACTERIUM INFANTIS 4 MG CAPSULE PO SCH (10:53)
[2018-04-16] MEDS: APIXABAN 2.5MG TABLET PO SCH ×2 (10:53→21:19)
[2018-04-16] MEDS: FERROUS SULFATE 325 MG TAB PO SCH (10:53)
[2018-04-16] MEDS: CALCIUM CARBONATE 500 MG TAB.CHEW PO SCH ×2 (10:54→11:14)
[2018-04-16] MEDS: LEVEMIR FLEXTOUCH 100 UNIT/ML INSULIN PEN SQ SCH (10:54)
[2018-04-16] MEDS: CALCIUM CARB/VITAMIN D 500MG/200IU PO SCH ×2 (12:38→21:19)
[2018-04-16] MEDS: 0.9 % SODIUM CHLORIDE 1000ML 1,000 ML IV SCH (14:37)
[2018-04-16] MEDS ORDERED: HYDROCORTISONE 1% CREAM 28.35 GM TUBE TOP PRN (16:26)
[2018-04-16] MEDS: ATORVASTATIN 20 MG TABLET PO SCH (21:19)
[2018-04-17] MEDS: VANCOMYCIN HCL 1 GM VIAL PO SCH ×6 (00:27→22:03)
[2018-04-17 06:36] LABS: HEMOGLOBIN 8.3 gm/dl (14.0-18.0); MEAN CELL VOLUME 89.4 fl (81-97); MEAN CORPUSCULAR HGB CONC 30.7 g/dl (32-36); MEAN PLATELET VOLUME 10.3 fl (7.4-10.4); PLATELET COUNT 573 K/uL (130-400); RED BLOOD COUNT 3.02 M/uL (4.40-5.70); RED CELL DISTRIBUTION WIDTH 13.3 % (11.5-14.5); WHITE BLOOD COUNT W/O DIFF 10.8 K/uL (4.2-12.2)
[2018-04-17 06:41] LABS: MEAN CORPUSCULAR HEMOGLOBIN 27.4 pg (27-33)
[2018-04-17 06:50] LABS: BLOOD UREA NITROGEN 24 mg/dL (8-23); CREATININE 1.2 mg/dL (0.7-1.2); EST GLOMERULAR FILTRATION RATE > 60 mL/min; GLUCOSE,RANDOM 100 mg/dL (74-109)
[2018-04-17 07:30] LABS: ANISOCYTOSIS 1+; PLATELET ESTIMATE INCREASED (NORMAL)
[2018-04-17] MEDS: NOVOLOG FLEXPEN (INSULIN ASPART) 100 UNITS/ML SQ SCH ×3 (07:35→17:15)
[2018-04-17] MEDS: METFORMIN 500 MG TABLET PO SCH ×2 (08:18→17:17)
[2018-04-17] MEDS ORDERED: HYDROCORTISONE 1% TOP PRN (09:45)
[2018-04-17] MEDS: POTASSIUM CHLORIDE 20 MEQ TABLET PO SCH (10:50)
[2018-04-17] MEDS: APIXABAN 2.5MG TABLET PO SCH ×2 (10:50→22:03)
[2018-04-17] MEDS: FERROUS SULFATE 325 MG TAB PO SCH (10:50)
[2018-04-17] MEDS: BIFIDOBACTERIUM INFANTIS 4 MG CAPSULE PO SCH (10:50)
[2018-04-17] MEDS: CALCIUM CARB/VITAMIN D 500MG/200IU PO SCH ×2 (10:50→22:03)
[2018-04-17] MEDS: LEVEMIR FLEXTOUCH 100 UNIT/ML INSULIN PEN SQ SCH (10:50)
--- NOTE | 2018-04-17 11:00 | Physician Progress Note ---
Subjective - Date Date of Physician Progress Note: 04/17/18 - Subjective Subjective Comment: Denies improvement in dizziness symptoms when moving positions in bed. Did not notice feeling better after receiving IVF yesterday. Thinks that he is drinking enough fluids. Denies significant pain to right hip. Does report a "sore bottom " d/t skin excoriation from incontinent stooling episodes. Objective - Vital Signs Vital Signs: Vital Signs - Last 24 Hrs Temp Pulse Pulse Resp BP Pulse Ox 04/17/18 09:00 92 H 16 04/17/18 08:14 98.2 F 78 16 141/85 97 04/17/18 06:00 98.8 F 98 H 16 156/78 97 04/16/18 22:00 98.2 F 79 17 145/63 91 L 04/16/18 21:00 65 16 04/16/18 18:00 98.4 F 65 16 152/56 94 L 04/16/18 16:49 98.4 F 82 16 134/62 96 - General General Appearance: Alert, Oriented x3, Cooperative, No acute distress Limitations: Physical limitation (unable to stand for orthostatic blood pressure measurement for more than 30 seconds) - Head Head exam: Atraumatic - Eye Eye exam: Normal appearance, PERRL - ENT ENT exam: Mucous membranes moist Ear exam: Normal external inspection Mouth exam: Normal external inspection - Respiratory Respiratory exam: Normal lung sounds bilaterally - Cardiovascular Cardiovascular Exam: Regular rate, Normal rhythm, Normal heart sounds Peripheral Pulses: 2+: Radial (R), Radial (L), Dorsalis Pedis (R), Dorsalis Pedis (L) - GI/Abdominal GI/Abdominal exam: Soft, Normal bowel sounds, Tenderness (generalized tenderness with palpation) - Rectal Rectal exam: Tenderness, Other (moderate to severe excoriation to rectal area and buttocks ) - exam: Other (naqvi, no hematuria noted) - Extremities Extremities exam: Normal inspection. negative: Pedal edema, Tenderness - Neurological Neurological exam: Alert, Oriented X3 - Psychiatric Psychiatric exam: Normal affect, Normal mood - Skin Skin exam: Abrasion (scabbed areas to BLE), Pallor Type of lesion: Other (surgical incision to right hip, dressing intact) Description of rash: Erythematous (blanchable excoriation to rectal area and buttocks), Tenderness (rectal area and buttocks) Assessment and Plan - Assessment and Plan (1) Dehydration Current Visit: Yes Status: Acute Base Code: E86.0 - DEHYDRATION Comment: : - BUN and Creatinine improved from 32 to 24 and 1.5 to 1.2 after 1 L IVF - Encouraged continued PO intake - Adequate urine output (2) C. difficile diarrhea Current Visit: Yes Status: Acute Base Code: A04.72 - ENTEROCOLITIS D/T CLOSTRIDIUM DIFFICILE, NOT SPCF RECUR Comment: 04/17/18: -Stool cultures positive for c-diff on admission -Frequent loose stools continued -Vanco 125mg PO q6h x 10 days, will complete course 04/19/09 -Contact isolation -Probiotic daily -Encourage increased PO fluid intake (3) DNR (do not resuscitate) Current Visit: Yes Status: Acute Base Code: Z66 - DO NOT RESUSCITATE Comment: 04/17/18: Patient is a DNR (4) DVT prophylaxis Current Visit: Yes Status: Acute Base Code: [id number] - Comment: 04/17/18: -Patient was started on Eliquis 2.5mg BID at [facility] for DVT prophylaxis post-op -Will continue with Eliquis at this time -Orthopedic surgeon to determine when to stop this medication (5) Diabetes type 2, controlled Current Visit: Yes Status: Acute Base Code: E11.9 - TYPE 2 DIABETES MELLITUS WITHOUT COMPLICATIONS Comment: 04/17/18: History of type 2 diabetes with insulin use -ADA diet -Metformin 850mg BID -Accucheck TID -Novolog sliding scale, adjusted to patient's home insulin regimen (6) Low hemoglobin Current Visit: Yes Status: Acute Base Code: D64.9 - ANEMIA, UNSPECIFIED Comment: 04/17/18: - Hgb steady at 8.3 today, (10.3 on 04/03/18, 7.8 on D/C from [facility] on 04/10/18) - On Eliquis 2.5mg BID per Orthopedic Surgeon (Dr. Perez) for DVT prophylaxis - Stool occult negative - No obvious signs of bleeding - Continue daily iron supplement (7) S/P right hip fracture Current Visit: Yes Status: Acute Base Code: Z87.81 - PERSONAL HISTORY OF ( HEALED) TRAUMATIC FRACTURE Comment: 04/17/18: Patient had a slip and fall on the ice 04/03. Was admitted to [facility] for a right intertrochanteric femur hip fracture. -Surgical repair 04/04 with a right cephalo-medullary nail placed -Dornsife 5/325 q6h prn pain -Tylenol as needed for mild pain -F/u with orthopedic surgeon on Sunday04/22/18 -PT/OT working with pt (8) Urinary retention Current Visit: Yes Status: Acute Base Code: R33.9 - RETENTION OF URINE, UNSPECIFIED Comment: 04/17/18: -Patient had urinary retention post-op -Discharged with naqvi catheter, started on Flomax, and instructed to follow-up with urology in 5-7 days for a voiding trial -Flomax stopped d/t syncope -Dr. Sanchez saw pt and recommended to leave naqvi in until pt up walking around (9) Weakness Current Visit: Yes Status: Acute Base Code: R53.1 - WEAKNESS Comment: : - Continued deconditioning and weakness with minimal ambulation, dizziness when getting up to commode - PT/OT cleared by cardiology - Trial Midodrine 2.5mg BID for orthostatic hypotension which is causing dizziness that is impeding PT/OT progress (10) Skin maceration Current Visit: Yes Status: Acute Base Code: L98.8 - OTH DISRD OF THE SKIN AND SUBCUTANEOUS TISSUE Comment: 04/17/18: - Frequent incontinent stooling d/t C. diff infection - Bilateral buttocks skin breakdown d/t excess moisture - Trial Hydrocortisone 1% ointment twice a day to macerated area, followed by Calmoseptine - Calmoseptine after each stooling episode - Fecal containment system (rectal tube) ordered - Naqvi present, will continue with naqvi while skin breakdown is present - Enccourage Turn and Repositioning at least q. 2 hours (11) Hypocalcemia Current Visit: Yes Status: Acute Base Code: E83.51 - HYPOCALCEMIA Comment : 04/17/18: - Calcium increaseing from 7.9 to 8.4 - PO Calcium 500mg + Vitamin D q. 12 hours (12) Orthostatic hypotension Current Visit: Yes Status: Acute Base Code: I95.1 - ORTHOSTATIC HYPOTENSION Comment: 04/17/18: -Orthostatic BP today: lying 148/83, sitting 90/48, unable to obtain pressure when standing d/t pt inability to stay in standing position d/t dizziness -BUN 24, Creatinine 1.2 after IVF x 1 L yesterday -Cardiology consult completed on 04/15/18 which recommended f/u as an outpatient -Therapy unable to progress with pt d/t symptomatic orthostatic hypotension -Trial Midodrine 2.5mg BID (a.m. and mid-day), consider increase in dose or frequency to TID Results - Labs Result Diagrams: 04/17/18 06:20 04/17/18 06:20 Labs Last 24 Hours: Laboratory Results - last 24 hr 04/17/18 04/17/18 04/17/18 06:20 06:20 06:20 WBC 10.8 Cancelled Corrected WBC Cancelled RBC 3.02 L Cancelled Hgb 8.3 L Cancelled Hct 27.0 L Cancelled MCV 89.4 Cancelled MCH 27.4 Cancelled MCHC 30.7 L Cancelled RDW 13.3 Cancelled Plt Count 573 H Cancelled MPV 10.3 Cancelled Gran % Cancelled Neutrophils % 76.0 Cancelled Band Neutrophils % Cancelled Lymphocytes % Cancelled Monocytes % Cancelled Eosinophils % Not Reportable Cancelled Basophils % Not Reportable Cancelled Lymphocytes 16.0 Cancelled Monocytes 7.0 Cancelled Basophils Cancelled Metamyelocytes Cancelled Myelocytes Cancelled Promyelocytes Cancelled Nucleated RBCs Cancelled Differential Comment Cancelled Hypersegmented Polys Cancelled Plasma Cells Cancelled Other Cell Type Cancelled Toxic Granulation Cancelled Dohle Bodies Cancelled Jessica Rods Cancelled Platelet Estimate Increased Cancelled RBC Morphology Cancelled Polychromasia Cancelled Hypochromasia Cancelled Poikilocytosis Cancelled Basophilic Stippling Cancelled Anisocytosis 1+ Cancelled Microcytosis Cancelled Macrocytosis Cancelled Spherocytes Cancelled Sickle Cells Cancelled Target Cells Cancelled Tear Drop Cells Cancelled Ovalocytes Cancelled Stomatocytes Cancelled Helmet Cells Cancelled [place] Bodies Cancelled [place] Rings Cancelled [place] Cells Cancelled Acanthocytes (Spur) Cancelled Rouleaux Cancelled Schistocytes Cancelled Morphology Comment Cancelled Eosinophil Count 1.0 Cancelled Sodium 142 Potassium 4.0 Chloride 109 H Carbon Dioxide 20.0 L Anion Gap 13.0 BUN 24 H Creatinine 1.2 Estimated GFR > 60 Random Glucose 100 Calcium 8.4 L DVT/PE Assessment - Risk for VTE Risk for VTE: No Risk Level: Moderate Risk Assessment Date: 04/15/18 Risk Assessment Time: 10:51 VTE Orders Placed or Will Be Placed: Yes - Active Medicaitons Current Medications: Current Medications Acetaminophen (Tylenol 325mg) 650 mg PO Q6H PRN PRN Reason: PAIN - MILD (1-4) Hydrocodone Bitart/Acetaminophen (Dornsife 5mg/325mg) 1 each PO Q6H PRN PRN Reason: PAIN - MOD TO SEVERE (5-10) Apixaban (Eliquis) 2.5 mg PO BID [facility] Last Admin: 04/16/18 21:19 Dose: 2.5 mg Atorvastatin Calcium (Lipitor) 20 mg PO QHS [facility] Last Admin: 04/16/18 21:19 Dose: 20 mg Calamine/Phenol (Calmoseptine Ointment) 3.5 gm TOP ASDIR PRN PRN Reason: RASH Last Admin: 04/16/18 14:00 Dose: 3.5 gm Calcium/Vitamin D (Calcium 500+D Tablet) 1 tab PO Q12HR [facility] Last Admin: 04/16/18 21:19 Dose: 1 tab Ferrous Sulfate (Iron) 325 mg PO DAILY [facility] Last Admin: 04/16/18 10:53 Dose: 325 mg Insulin Aspart (Novolog Flexpen) 1 unit SQ TIDINS [facility]; Protocol Last Admin: 04/17/18 07:35 Dose: Not Given Insulin Detemir (Levemir Flextouch) 28 unit SQ DAILY [facility] Last Admin: 04/16/18 10:54 Dose: 28 unit Metformin HCl (Glucophage Ir) 1,000 mg PO BIDWM [facility] Last Admin: 04/17/18 08:18 Dose: 1,000 mg Midodrine (Midodrine Hcl) 2.5 mg PO BID [facility] Patient Own Med: Hydrocortisone 1% Ointment 1 each TOP ASDIR PRN PRN Reason: RASH Potassium Chloride (Klor-Con) 20 meq PO DAILY [facility] Last Admin: 04/16/18 10:53 Dose: 20 meq Vancomycin HCl (Vanco) 125 mg PO Q6HR [facility] Stop: 04/19/18 17:31 Last Admin: 04/17/18 06:21 Dose: 125 mg Zinc Oxide (Desitin) 10 gm TOP ASDIR PRN PRN Reason: RASH AMI Plan - Labs Result Diagrams: 04/17/18 06:20 04/17/18 06:20
[2018-04-17] MEDS: MIDODRINE HCL 5 MG TABLET PO SCH ×2 (11:07→22:02)
--- NOTE | 2018-04-17 12:53 | Occupational Therapy Tx Note ---
Occupational Therapy Tx Note - Treatment Note Occupational Therapy Treatment Note: Detail (Attempted OT treatment in conjunction with PT. Pt continues to have a drop in BP with position changes and was unable to tolerate sitting or standing due to lightheadedness. Will continue to monitor.) Occupational Therapy Problem List: Detail (Decreased Ind with ADLs and functional mobility.) Occupational Therapy Goals: Will further assess functional mobility and self care skills as able. Goals will be determined after initial assessment is completed. Occupational Therapy Plan: OT will continue to assess and create goals as medical status allows.
--- NOTE | 2018-04-17 14:18 | Physical Therapy Tx Note ---
Physical Therapy Tx Note - Treatment Note Total Time Spent With Patient: 15 Physical Therapy Tx Note: Detail (The patient was seen jointly with OT for orthostatic hypotension testing. Refer to Nursing notes for specific measures. The patient's BP continues to drop when standing but drops less in sitting then initial test. The patient was independent with supine to and from sit transfer and scooting up n bed with use of trapeze. Patient also completed 15 min. of ther. ex. with bilateral LE's including: ankle pumps x 15 secs, quad sets, gluteal sets, hamstring sets, adductor sets , heel slides all x 10 reps. Patient completed with L LE SAQ and hip abduction with resistance x 10 reps. SAQ and hip abduction were not completed secondary to increased pain complaints. The patient continues to experience orthostatic hypotension and increased lightheadness with standing. Patient is fatigued after standing x 1 and refused further standing attempts.) Physical Therapy Problem List: Detail (1) Lightheadness with positional changes. 2) Decreased R LE strength and decreased bilateral knee ROM. 3) Impaired ambulation s/p fracture.4) Orthostatic hypotension) Physical Therapy Goals: 1) The patient will ambulate household distances with CG of 1, PWB on the R. 2) The patient will be independent/supervision with all transfers, including car, tub and toilet transfers. 3) The patient will ambulate on stairs using proper technique with supervision for safety. 4) Increased R LE strength 1/3 muscle grade to increase stability of gait. Physical Therapy Plan: PT daily ( as medically able) M-F gait training, transfer training and LE strengthening exercises.
[2018-04-17] MEDS: 0.9 % SODIUM CHLORIDE 1000ML 1,000 ML IV PRN (17:00)
[2018-04-17] MEDS: ATORVASTATIN 20 MG TABLET PO SCH (22:03)
[2018-04-18] MEDS: VANCOMYCIN HCL 1 GM VIAL PO SCH ×3 (00:09→12:52)
[2018-04-18] MEDS: MIDODRINE HCL 5 MG TABLET PO SCH (06:25)
[2018-04-18] MEDS: 0.9 % SODIUM CHLORIDE 1000ML 1,000 ML IV PRN (06:26)
[2018-04-18] MEDS: NOVOLOG FLEXPEN (INSULIN ASPART) 100 UNITS/ML SQ SCH ×3 (08:08→17:09)
[2018-04-18] MEDS: METFORMIN 500 MG TABLET PO SCH (08:11)
[2018-04-18] MEDS ORDERED: HYDROCORTISONE 1% TOP SCH (10:00)
--- NOTE | 2018-04-18 10:51 | Physical Therapy Tx Note ---
Physical Therapy Tx Note - Treatment Note Tolerated: Fair Total Time Spent With Patient: 35 Physical Therapy Tx Note: Detail (Pt in bed upon arrival, awake/alert, cooperative for therapy. Nrsg indicated they had not yet given BP medication; PA asked for PT to do positional BP's to assess effectiveness of med. Pt came to sitting from supine w/use of trapeze and CGA, sat for at least six minutes before attempting standing. Required two attempts for initial stand due to c/o feeling dizzy; VCs to breathe deeply and keep eyes open. Stood with front wheeled walker for 3 minutes x 2 w/CGA of 2. Returned to supine w/CGA and use of trapeze. Positional BPs were as follows: supine 159/82; sitting 104/61, 2 min later 114/67, 2 more min later 114/67; standing 100/51, stood for 3 min, then rested 3 min; stood again 100/51 for 3 min; after 3 min, 97/45, resumed sitting. Sitting at end of session 107/62. Discussed w/pt and w/nrsg possibly encouraging patient to sit up for meals if medically appropriate. Pt initiated discussion regarding transportation to [facility] on 04/22; he would like to be transported by his son in his (patient's) car. We discussed possibly doing a practice car transfer tomorrow.) Physical Therapy Problem List: Detail (1) Lightheadness with positional changes. 2) Decreased R LE strength and decreased bilateral knee ROM. 3) Impaired ambulation s/p fracture.4) Orthostatic hypotension) Physical Therapy Goals: 1) The patient will ambulate household distances with CG of 1, PWB on the R. 2) The patient will be independent/supervision with all transfers, including car, tub and toilet transfers. 3) The patient will ambulate on stairs using proper technique with supervision for safety. 4) Increased R LE strength 1/3 muscle grade to increase stability of gait. Physical Therapy Plan: PT daily ( as medically able) M-F gait training, transfer training and LE strengthening exercises.
[2018-04-18] MEDS: LEVEMIR FLEXTOUCH 100 UNIT/ML INSULIN PEN SQ SCH (10:57)
[2018-04-18] MEDS: FERROUS SULFATE 325 MG TAB PO SCH (10:58)
[2018-04-18] MEDS: APIXABAN 2.5MG TABLET PO SCH (10:58)
[2018-04-18] MEDS: POTASSIUM CHLORIDE 20 MEQ TABLET PO SCH (10:58)
[2018-04-18] MEDS: BIFIDOBACTERIUM INFANTIS 4 MG CAPSULE PO SCH (10:58)
[2018-04-18] MEDS: CALCIUM CARB/VITAMIN D 500MG/200IU PO SCH (10:58)
[2018-04-18] MEDS ORDERED: MIDODRINE HCL 5 MG TABLET PO SCH (12:00)
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
--- NOTE | 2018-04-18 17:48 | Physical Therapy Tx Note ---
Physical Therapy Tx Note - Treatment Note Tolerated: Fair Total Time Spent With Patient: 20 Physical Therapy Tx Note: Detail (Pt in bed upon arrival; awake, alert, cooperative for therapy but complained of feeling tired. present in room. CGA for bed mobility to come to sitting at edge of bed w/o use of trapeze. BP upon initial sitting 100/64, reported mild lightheadedness. Performed 10 reps B of seated marching, knee extension, ankle pumps, isometric hip adduction, hip abduction w/yellow t-band, knee flexion w/yellow t-band. CGA to maintain sitting balance w/knee extension exercises. BP in sitting after exercise was 136/72. Returned to supine w/CGA to manage naqvi catheter, used trapeze for scooting up in bed. Placed call light and bedside table within reach. Pt reported fatigue and little R hip pain (/10). Reviewed isometric exercises w/ him and encouraged independent performance (isometric gluteals, isometric quads , isometric hamstrings, and heel slides). He verbalized good understanding.) Physical Therapy Problem List: Detail (1) Lightheadness with positional changes. 2) Decreased R LE strength and decreased bilateral knee ROM. 3) Impaired ambulation s/p fracture.4) Orthostatic hypotension) Physical Therapy Goals: 1) The patient will ambulate household distances with CG of 1, PWB on the R. 2) The patient will be independent/supervision with all transfers, including car, tub and toilet transfers. 3) The patient will ambulate on stairs using proper technique with supervision for safety. 4) Increased R LE strength 1/3 muscle grade to increase stability of gait. Physical Therapy Plan: PT daily ( as medically able) M-F gait training, transfer training and LE strengthening exercises.
== END 2018-04-18 17:47 | disposition swing bed (61) | DRG 312 ==
LOC: MEDSURG 16:43 → OBSVTOIN 16:43
PROVIDERS: ADMIT Internal Medicine; ATTEND Internal Medicine
DX: R55 Syncope and collapse (principal); A04.72 Enterocolitis due to Clostridium difficile, not specified as recurrent; E86.0 Dehydration; R33.9 Retention of urine, unspecified; D64.9 Anemia, unspecified; R53.1 Weakness; L98.8 Other specified disorders of the skin and subcutaneous tissue; I10 Essential (primary) hypertension; E87.6 Hypokalemia; E11.9 Type 2 diabetes mellitus without complications; Z79.4 Long term (current) use of insulin; E83.51 Hypocalcemia; Z87.81 Personal history of (healed) traumatic fracture; Z79.01 Long term (current) use of anticoagulants; Z87.891 Personal history of nicotine dependence; Z66 Do not resuscitate
CPT/HCPCS: 36416; 80048; 82948; 85027; 93306; 97110; 97530; 99223; 99232; 99233; 99239

== ENCOUNTER 2018-04-17 10:35 | Inpatient (IN) | payer MEDICARE ==
[2018-04-18] MEDS ORDERED: HYDROCODONE/APAP 5/325MG TABLET PO PRN (16:37)
[2018-04-18] MEDS ORDERED: ZINC OXIDE 28.35 GM TUBE TOP PRN (16:38)
[2018-04-18] MEDS ORDERED: MENTHOL TOP PRN (16:38)
[2018-04-18] MEDS ORDERED: ZINC OXIDE TOP PRN (16:38)
[2018-04-18] MEDS: VANCOMYCIN HCL 1 GM VIAL PO SCH (18:18)
[2018-04-18] MEDS: METFORMIN 500 MG TABLET PO SCH (18:18)
[2018-04-18] MEDS: NOVOLOG FLEXPEN (INSULIN ASPART) 100 UNITS/ML SQ SCH (18:23)
[2018-04-18] MEDS: CALCIUM CARB/VITAMIN D 500MG/200IU PO SCH (21:45)
[2018-04-18] MEDS: APIXABAN 2.5MG TABLET PO SCH (21:45)
[2018-04-18] MEDS: ATORVASTATIN 20 MG TABLET PO SCH (21:45)
[2018-04-18] MEDS: ACETAMINOPHEN 325 MG TAB PO PRN (21:45)
[2018-04-18] MEDS: HYDROCORTISONE 1% TOP SCH (22:21)
[2018-04-19] MEDS: VANCOMYCIN HCL 1 GM VIAL PO SCH ×4 (00:30→17:24)
[2018-04-19] MEDS: MIDODRINE HCL 5 MG TABLET PO SCH ×2 (06:27→12:59)
[2018-04-19 06:41] LABS: BASO % 0.3 % (0-6); EOS % 2.9 % (0-6); GRAN % 77.6 % (47-80); HEMATOCRIT 28.6 % (42.0-52.0); HEMOGLOBIN 8.9 gm/dl (14.0-18.0); LYMPH % 13.9 % (16-45); MEAN CELL VOLUME 88.3 fl (81-97); MEAN CORPUSCULAR HGB CONC 31.1 g/dl (32-36); MEAN PLATELET VOLUME 10.2 fl (7.4-10.4); MONO % 5.3 % (0-9); PLATELET COUNT 636 K/uL (130-400); RED BLOOD COUNT 3.24 M/uL (4.40-5.70); RED CELL DISTRIBUTION WIDTH 13.5 % (11.5-14.5); WHITE BLOOD COUNT W/O DIFF 12.8 K/uL (4.2-12.2)
[2018-04-19 06:42] LABS: MEAN CORPUSCULAR HEMOGLOBIN 27.4 pg (27-33)
[2018-04-19 06:54] LABS: BLOOD UREA NITROGEN 19 mg/dL (8-23); CREATININE 1.1 mg/dL (0.7-1.2); EST GLOMERULAR FILTRATION RATE > 60 mL/min; GLUCOSE,RANDOM 113 mg/dL (74-109)
[2018-04-19] MEDS: NOVOLOG FLEXPEN (INSULIN ASPART) 100 UNITS/ML SQ SCH ×3 (08:19→17:18)
[2018-04-19] MEDS: METFORMIN 500 MG TABLET PO SCH ×2 (08:23→17:23)
[2018-04-19] MEDS: BIFIDOBACTERIUM INFANTIS 4 MG CAPSULE PO SCH (09:20)
[2018-04-19] MEDS: APIXABAN 2.5MG TABLET PO SCH ×2 (09:20→22:37)
[2018-04-19] MEDS: FERROUS SULFATE 325 MG TAB PO SCH (09:20)
[2018-04-19] MEDS: CALCIUM CARB/VITAMIN D 500MG/200IU PO SCH ×2 (09:20→22:37)
[2018-04-19] MEDS: POTASSIUM CHLORIDE 20 MEQ TABLET PO SCH (09:21)
[2018-04-19] MEDS: LEVEMIR FLEXTOUCH 100 UNIT/ML INSULIN PEN SQ SCH (09:22)
[2018-04-19] MEDS: HYDROCORTISONE 1% TOP SCH ×2 (09:28→22:40)
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
--- NOTE | 2018-04-19 15:21 | Physical Therapy Tx Note ---
Physical Therapy Tx Note - Treatment Note Tolerated: Fair Total Time Spent With Patient: 25 Physical Therapy Tx Note: Detail (The patient was in bed when PT arrived. The patient was independent with supine to sit transfer with use of trapeze. The patient stood x 1 to walker. Patient requested to sit due to LE fatigue, no complaints of lightheadedness were noted. The patient then transferred to the wheelchair with use of walker with CG of 1, SBA of 1. The patient was left in wheelchair and completed LE exercises including: ankle pumps, LAQ, hip marching , hip adductor squeezes, hip abduction seated and hamstring curls all x 10 reps. The patient's B/P dropped when standing- greater then 20 systolically - no complaints of lightheadedness were noted. Patient was left up in chair with call light in reach and present, nursing staff was notified. The patient has improved over all with improved tolerance to positional changes. Patient was instructed to complete LE exercises and get up in chair with nursing staff this weekend.) Physical Therapy Problem List: Detail (1)Decreased R LE strength 2) Orthostatic Hypotension 3) Decreased ability to complete prolonged physical activity 4) Impaired ambulation secondary to s/p R hip fracture) Physical Therapy Goals: 1) The patient will be independent with bed mobility without use of trapeze. 2) The patient will ambulate with appropriate assistive device PWB on the R LE with supervision for safety only. 3) The patient will ambulate on stairs using proper technique with supervision for safety. 4) The patient will tolerate 30 minutes of physical activity with one rest period. 5) The patient will be independent with all transfers including car transfer. 6) Increase R LE strength 1/3 muscle grade to increase stability with gait. Physical Therapy Plan: PT 1-2 times a day M-F for gait training, transfer training, bed mobility and LE strengthening exercises.
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
[2018-04-19] MEDS: ATORVASTATIN 20 MG TABLET PO SCH (22:37)
[2018-04-20] MEDS: VANCOMYCIN HCL 1 GM VIAL PO SCH ×3 (00:37→12:20)
[2018-04-20] MEDS: MIDODRINE HCL 5 MG TABLET PO SCH ×2 (06:00→12:21)
[2018-04-20] MEDS: NOVOLOG FLEXPEN (INSULIN ASPART) 100 UNITS/ML SQ SCH ×3 (08:27→18:10)
[2018-04-20] MEDS: METFORMIN 500 MG TABLET PO SCH ×2 (08:50→18:09)
[2018-04-20] MEDS: CALCIUM CARB/VITAMIN D 500MG/200IU PO SCH ×2 (10:58→22:18)
[2018-04-20] MEDS: LEVEMIR FLEXTOUCH 100 UNIT/ML INSULIN PEN SQ SCH (10:58)
[2018-04-20] MEDS: FERROUS SULFATE 325 MG TAB PO SCH (10:58)
[2018-04-20] MEDS: POTASSIUM CHLORIDE 20 MEQ TABLET PO SCH (10:58)
[2018-04-20] MEDS: APIXABAN 2.5MG TABLET PO SCH ×2 (10:58→22:18)
[2018-04-20] MEDS: BIFIDOBACTERIUM INFANTIS 4 MG CAPSULE PO SCH (10:58)
[2018-04-20] MEDS: HYDROCORTISONE 1% TOP SCH ×2 (11:31→22:36)
[2018-04-20] MEDS: ONDANSETRON HCL IV 4 MG/2 ML VIAL IVP PRN (16:54)
[2018-04-20] MEDS: ATORVASTATIN 20 MG TABLET PO SCH (22:18)
[2018-04-21] MEDS: MIDODRINE HCL 5 MG TABLET PO SCH ×4 (05:52→22:07)
[2018-04-21] MEDS: NOVOLOG FLEXPEN (INSULIN ASPART) 100 UNITS/ML SQ SCH ×3 (08:14→17:43)
[2018-04-21] MEDS: METFORMIN 500 MG TABLET PO SCH ×2 (08:45→18:01)
[2018-04-21] MEDS: POTASSIUM CHLORIDE 20 MEQ TABLET PO SCH (11:14)
[2018-04-21] MEDS: CALCIUM CARB/VITAMIN D 500MG/200IU PO SCH ×2 (11:19→22:08)
[2018-04-21] MEDS: FERROUS SULFATE 325 MG TAB PO SCH (11:19)
[2018-04-21] MEDS: APIXABAN 2.5MG TABLET PO SCH ×2 (11:19→22:08)
[2018-04-21] MEDS: LEVEMIR FLEXTOUCH 100 UNIT/ML INSULIN PEN SQ SCH (11:20)
[2018-04-21] MEDS: BIFIDOBACTERIUM INFANTIS 4 MG CAPSULE PO SCH (11:20)
[2018-04-21] MEDS: HYDROCORTISONE 1% TOP SCH ×2 (11:22→22:08)
[2018-04-21 11:55] LABS: HEMATOCRIT 29.2 % (42.0-52.0); HEMOGLOBIN 9.2 gm/dl (14.0-18.0); MEAN CELL VOLUME 88.5 fl (81-97); MEAN CORPUSCULAR HGB CONC 31.5 g/dl (32-36); MEAN PLATELET VOLUME 10.4 fl (7.4-10.4); PLATELET COUNT 645 K/uL (130-400); RED CELL DISTRIBUTION WIDTH 13.7 % (11.5-14.5); WHITE BLOOD COUNT W/O DIFF 13.1 K/uL (4.2-12.2)
[2018-04-21 12:07] LABS: BLOOD UREA NITROGEN 27 mg/dL (8-23); CREATININE 1.2 mg/dL (0.7-1.2); EST GLOMERULAR FILTRATION RATE > 60 mL/min
[2018-04-21 12:09] LABS: GLUCOSE,RANDOM 201 mg/dL (74-109)
[2018-04-21 12:24] LABS: MEAN CORPUSCULAR HEMOGLOBIN 27.8 pg (27-33)
[2018-04-21 12:55] LABS: HYPOCHROMIA 2+
[2018-04-21] MEDS: ONDANSETRON HCL IV 4 MG/2 ML VIAL IVP PRN (14:27)
[2018-04-21] MEDS: ONDANSETRON 4 MG ODT TABLET SL PRN (14:42)
[2018-04-21] MEDS: ATORVASTATIN 20 MG TABLET PO SCH (22:08)
[2018-04-22 06:44] LABS: BASO % 0.4 % (0-6); EOS % 2.8 % (0-6); GRAN % 77.2 % (47-80); HEMATOCRIT 30.1 % (42.0-52.0); HEMOGLOBIN 9.2 gm/dl (14.0-18.0); MEAN CELL VOLUME 89.1 fl (81-97); MEAN CORPUSCULAR HEMOGLOBIN 27.2 pg (27-33); MEAN CORPUSCULAR HGB CONC 30.6 g/dl (32-36); MONO % 7.6 % (0-9); PLATELET COUNT 634 K/uL (130-400); RED BLOOD COUNT 3.38 M/uL (4.40-5.70); RED CELL DISTRIBUTION WIDTH 13.8 % (11.5-14.5); WHITE BLOOD COUNT W/O DIFF 14.5 K/uL (4.2-12.2)
[2018-04-22] MEDS: 0.9 % SODIUM CHLORIDE 1000ML 1,000 ML IV PRN ×2 (07:03→22:38)
--- NOTE | 2018-04-22 07:22 | RADIOLOGY REPORT ---
EXAM: CHEST, SINGLE AP PORTABLE VIEW HISTORY: PATIENT HAS COUGH WITH LOW GRADE TEMPERATURE. TECHNIQUE: A single AP portable view of the chest was provided along with the comparison study dated 04/14/18. FINDINGS: The cardiomediastinal silhouette is within normal limits for size and contour. The rg appear unremarkable. There is no radiographic evidence of a focal infiltrate or pleural effusion. No pneumothorax is noted. IMPRESSION: NO RADIOGRAPHIC EVIDENCE OF ACUTE INTRATHORACIC PROCESS. JOB NUMBER: [id number] [facility]
[2018-04-22 07:28] LABS: BLOOD UREA NITROGEN 28 mg/dL (8-23); CREATININE 1.1 mg/dL (0.7-1.2); EST GLOMERULAR FILTRATION RATE > 60 mL/min; GLUCOSE,RANDOM 104 mg/dL (74-109)
[2018-04-22] MEDS: NOVOLOG FLEXPEN (INSULIN ASPART) 100 UNITS/ML SQ SCH ×3 (07:56→17:01)
[2018-04-22] MEDS: METFORMIN 500 MG TABLET PO SCH ×2 (08:03→17:29)
[2018-04-22] MEDS: MIDODRINE HCL 5 MG TABLET PO SCH ×2 (08:04→13:28)
[2018-04-22] MEDS: LEVEMIR FLEXTOUCH 100 UNIT/ML INSULIN PEN SQ SCH (09:35)
[2018-04-22] MEDS: BIFIDOBACTERIUM INFANTIS 4 MG CAPSULE PO SCH (09:36)
[2018-04-22] MEDS: CALCIUM CARB/VITAMIN D 500MG/200IU PO SCH ×2 (09:37→22:37)
[2018-04-22] MEDS: POTASSIUM CHLORIDE 20 MEQ TABLET PO SCH (09:37)
[2018-04-22] MEDS: FERROUS SULFATE 325 MG TAB PO SCH (09:38)
[2018-04-22] MEDS: APIXABAN 2.5MG TABLET PO SCH ×2 (09:38→22:37)
[2018-04-22] MEDS: HYDROCORTISONE 1% TOP SCH (09:39)
[2018-04-22 10:54] LABS: URINE APPEARANCE CLEAR; URINE BILIRUBIN NEGATIVE (NEGATIVE); URINE BLOOD TRACE-I (NEGATIVE); URINE COLOR YELLOW; URINE GLUCOSE (UA) NEGATIVE (NEGATIVE); URINE KETONE NEGATIVE (NEGATIVE); URINE LEUKOCYTE ESTERASE TRACE (NEGATIVE); URINE NITRITE NEGATIVE (NEGATIVE); URINE PROTEIN TRACE (NEGATIVE); URINE UROBILINOGEN 0.2 E.U./dL (0.20 - 1.00)
[2018-04-22 11:03] LABS: URINE WBC 0 - 2 (0-2/hpf)
[2018-04-22 11:04] LABS: URINE EPITHELIAL CELLS NONE SEEN (FEW)
--- NOTE | 2018-04-22 11:26 | Physician Progress Note ---
Subjective - Date Date of Progress Note: 04/22/18 - Admitting Diagnosis Diagnosis: deconditioning related to right hip surgery - Subjective Nursing Care Plan Problem List Activity Intolerance (Swing Bed) Start: 04/18/18 17: 39 Freq: Status: Active Protocol: Created 04/18/18 17:39 MMT (Rec: 04/18/18 17:39 MMT [id number]) Altered Thought Process (Fall Risk) Start: 04/18/18 18: 37 Freq: Status: Active Protocol: Created 04/18/18 18:37 MMT (Rec: 04/18/18 18:37 MMT [id number]) Altered Urinary Elimination Pattern Start: 04/18/18 18: 13 Freq: Status: Active Protocol: Created 04/18/18 18:13 MMT (Rec: 04/18/18 18:13 MMT [id number]) Diarrhea Start: 04/18/18 18: 13 Freq: Status: Active Protocol: Created 04/18/18 18:13 MMT (Rec: 04/18/18 18:13 MMT [id number]) Impaired Mobility (Fall Risk) Start: 04/18/18 18: 37 Freq: Status: Active Protocol: Created 04/18/18 18:37 MMT (Rec: 04/18/18 18:37 MMT [id number]) Impaired Skin Integrity Start: 04/18/18 18: 14 Freq: Status: Active Protocol: Created 04/18/18 18:14 MMT (Rec: 04/18/18 18:14 MMT [id number]) Knowledge Deficit (Swing Bed) Start: 04/18/18 17: 39 Freq: Status: Active Protocol: Created 04/18/18 17:39 MMT (Rec: 04/18/18 17:39 MMT [id number]) Pain (Swing Bed) Start: 04/18/18 17: 39 Freq: Status: Active Protocol: Created 04/18/18 17:39 MMT (Rec: 04/18/18 17:39 MMT [id number]) Risk for Injury (Fall Risk) Start: 04/18/18 18: 37 Freq: Status: Active Protocol: Created 04/18/18 18:37 MMT (Rec: 04/18/18 18:37 MMT [id number]) Edit Status 04/20/18 14:37 SAF (Rec: 04/20/18 14:37 SAF [id number]) Active=>Complete Edit Status 04/20/18 22:13 RCS (Rec: 04/20/18 22:13 RCS [id number]) Complete=>Active Edit Status 04/21/18 07:06 RCS (Rec: 04/21/18 07:06 RCS [id number]) Active=>Complete Edit Status 04/22/18 07:00 RCS (Rec: 04/22/18 07:00 RCS [id number]) Complete=>Active Urinary Retention Start: 04/18/18 18: 13 Freq: Status: Active Protocol: Created 04/18/18 18:13 MMT (Rec: 04/18/18 18:13 MMT [id number]) Subjective: Reports occasional dizziness when getting out of bed but says that it has improved. Denies pain. Reports that he has had a cough but isn't bringing anything up. Denies having fever or chills. States that his bottom is feeling alot better since the skin has healed up. Son and pt's at bedside during visit. Unable to go to ortho appointment today d/t C.Diff infection. - Subjective Detail Constitutional: Reports: Weakness. Denies: Chills, Fever Respiratory: Reports: Cough. Denies: Dyspnea Cardiovascular: Denies: Chest pain, Edema, Palpitations Gastrointestinal: Reports: Diarrhea, Nausea. Denies: Abdominal pain, Vomiting Musculoskeletal: Reports: As per HPI Skin: Reports: As per HPI Neurological: Denies: Tingling General - Cognitive Patterns Speech: Normal Thought Process: Intact Thought Content: Normal - Communication Select best description of speech pattern: Clear Speech Ability to express ideas and wants: Understood Understanding verbal content: Understands - Mood and Behavior Patterns Appearance: Disheveled Mood: Normal Attitude: Cooperative Motor Activity: Calm Affect: Appropriate Hallucinations: Denies - Physical Functioning Activity Level: Up as tolerated Turning: Self ad cheo ROM Ability: Moves all extremities Assistive Devices: 2 Wheel Walker, Wheel Chair, Hospital Bed Ambulation Ability: Needs Assist Bed Mobility: Independent Transfer Ability: Needs Assist Bathing Ability: Needs Assist Personal Hygiene: Dependent Dressing Ability: Needs Assist Eating (Feeding) Ability: Independent Toileting Ability: Dependent Administer Own Medication: Independent - Continence Bowel Pattern: Diarrhea Bladder Pattern: Retention Meds/Allergies - Allergies Allergies Allergy/AdvReac Type Severity Reaction Status Date / Time No Known Drug Allergies Allergy Verified 04/03/18 10:41 - Active Medications Current Medications Acetaminophen (Tylenol 325mg) 650 mg PO Q6H PRN PRN Reason: PAIN - MILD (1-4) Last Admin: 04/18/18 21:45 Dose: 650 mg Hydrocodone Bitart/Acetaminophen ([place] 5mg/325mg) 1 each PO Q6H PRN PRN Reason: PAIN - MOD TO SEVERE (5-10) Apixaban (Eliquis) 2.5 mg PO BID [facility] Last Admin: 04/22/18 09:38 Dose: 2.5 mg Atorvastatin Calcium (Lipitor) 20 mg PO QHS [facility] Last Admin: 04/21/18 22:08 Dose: 20 mg Calamine/Phenol (Calmoseptine Ointment) 3.5 gm TOP ASDIR PRN PRN Reason: RASH Calcium/Vitamin D (Calcium 500+D Tablet) 1 tab PO Q12HR [facility] Last Admin: 04/22/18 09:37 Dose: 1 tab Ferrous Sulfate (Iron) 325 mg PO DAILY [facility] Last Admin: 04/22/18 09:38 Dose: 325 mg Sodium Chloride () 1,000 mls @ 83 mls/hr IV .Q12H3M PRN PRN Reason: LARGE VOLUME IV Last Admin: 04/22/18 07:03 Dose: 83 mls/hr Insulin Aspart (Novolog Flexpen) 1 unit SQ TIDINS [facility]; Protocol Last Admin: 04/22/18 07:56 Dose: Not Given Insulin Detemir (Levemir Flextouch) 30 unit SQ DAILY [facility] Last Admin: 04/22/18 09:35 Dose: 30 unit Metformin HCl (Glucophage Ir) 500 mg PO BIDWM [facility] Midodrine (Midodrine Hcl) 5 mg PO 0800,1200 [facility] Ondansetron HCl (Zofran) 4 mg IVP Q6H PRN PRN Reason: NAUSEA Last Admin: 04/20/18 16:54 Dose: 4 mg Ondansetron HCl (Zofran Odt) 4 mg SL Q8H PRN PRN Reason: NAUSEA/VOMITING Last Admin: 04/21/18 14:42 Dose: 4 mg Patient Own Med: Hydrocortisone 1% Ointment 1 each TOP BID [facility] Last Admin: 04/22/18 09:39 Dose: 1 each Potassium Chloride (Klor-Con) 20 meq PO DAILY [facility] Last Admin: 04/22/18 09:37 Dose: 20 meq Zinc Oxide (Desitin) 10 gm TOP ASDIR PRN PRN Reason: RASH Objective - Vital Signs Vital Signs: Vital Signs - Last 24 Hrs Temp Pulse Resp BP Pulse Ox 04/22/18 08:00 98 F 88 17 139/76 97 04/21/18 20:00 97.8 F 79 18 114/65 97 - General General Appearance: Alert, Oriented x3, Cooperative, No acute distress - Respiratory Respiratory exam: Normal lung sounds bilaterally - Cardiovascular Cardiovascular Exam: Regular rate, Normal rhythm Peripheral Pulses: 2+: Dorsalis Pedis (R), Dorsalis Pedis (L) - GI/Abdominal GI/Abdominal exam: Soft, Normal bowel sounds, Other (rectal tube in place) - Rectal Rectal exam: Other (skin intact, no maceration present) - exam: Normal inspection, Other (naqvi cathter present) - Extremities Extremities exam: Other (slight redness and warmth to posterior RLE, no open areas.) - Neurological Neurological exam: Alert, Oriented X3 - Psychiatric Psychiatric exam: Normal affect, Normal mood - Skin Skin exam: Abrasion (scabbed areas and flaky skin to RLE, slight redness and warmth to posterior RLE), Other (surgical incision well healed, no s/sx of infection) H&P Results - Labs Result Diagrams: 04/22/18 06:40 04/22/18 06:40 Labs Last 24 Hours: Laboratory Results - last 24 hr 04/21/18 04/21/18 04/21/18 11:30 11:30 11:30 WBC 13.1 H Cancelled Corrected WBC Cancelled RBC 3.30 L Cancelled Hgb 9.2 L Cancelled Hct 29.2 L Cancelled MCV 88.5 Cancelled MCH 27.8 Cancelled MCHC 31.5 L Cancelled RDW 13.7 Cancelled Plt Count 645 H Cancelled MPV 10.4 Cancelled Gran % Cancelled Neutrophils % 79.0 Cancelled Band Neutrophils % 2.0 Cancelled Lymphocytes % Cancelled Monocytes % Cancelled Eosinophils % Not Reportable Cancelled Basophils % Not Reportable Cancelled Lymphocytes 11.0 L Cancelled Monocytes 5.0 Cancelled Basophils 0.0 Cancelled Metamyelocytes Cancelled Myelocytes Cancelled Promyelocytes Cancelled Nucleated RBCs Cancelled Differential Comment Cancelled Hypersegmented Polys Cancelled Plasma Cells Cancelled Other Cell Type Cancelled Toxic Granulation Cancelled Dohle Bodies Cancelled Jessica Rods Cancelled Platelet Estimate Cancelled RBC Morphology Cancelled Polychromasia Cancelled Hypochromasia 2+ Cancelled Poikilocytosis Cancelled Basophilic Stippling Cancelled Anisocytosis Cancelled Microcytosis Cancelled Macrocytosis Cancelled Spherocytes Cancelled Sickle Cells Cancelled Target Cells Cancelled Tear Drop Cells Cancelled Ovalocytes Cancelled Stomatocytes Cancelled Helmet Cells Cancelled [place] Bodies Cancelled [place] Rings Cancelled [place] Cells Cancelled Acanthocytes (Spur) Cancelled Rouleaux Cancelled Schistocytes Cancelled Morphology Comment Cancelled Eosinophil Count 3.0 Cancelled Sodium 136 Potassium 4.6 H Chloride 99 Carbon Dioxide 24.0 Anion Gap 13.0 BUN 27 H Creatinine 1.2 Estimated GFR > 60 POC Glucose Random Glucose 201 H Calcium 8.6 L Procalcitonin Urine Color Urine Appearance Urine pH Ur Specific Viper Urine Protein Urine Glucose (UA) Urine Ketones Urine Blood Urine Nitrite Urine Bilirubin Urine Urobilinogen Ur Leukocyte Esterase Urine RBC Urine WBC Ur Epithelial Cells 04/21/18 04/21/18 04/22/18 11:30 17:00 06:40 WBC 14.5 H Corrected WBC RBC 3.38 L Hgb 9.2 L Hct 30.1 L MCV 89.1 MCH 27.2 MCHC 30.6 L RDW 13.8 Plt Count 634 H MPV 10.0 Gran % 77.2 Neutrophils % Cancelled Band Neutrophils % Cancelled Lymphocytes % 12.0 L Monocytes % 7.6 Eosinophils % 2.8 Basophils % 0.4 Lymphocytes Cancelled Monocytes Cancelled Basophils Cancelled Metamyelocytes Cancelled Myelocytes Cancelled Promyelocytes Cancelled Nucleated RBCs Cancelled Differential Comment Cancelled Hypersegmented Polys Cancelled Plasma Cells Cancelled Other Cell Type Cancelled Toxic Granulation Cancelled Dohle Bodies Cancelled Jessica Rods Cancelled Platelet Estimate Cancelled RBC Morphology Cancelled Polychromasia Cancelled Hypochromasia Cancelled Poikilocytosis Cancelled Basophilic Stippling Cancelled Anisocytosis Cancelled Microcytosis Cancelled Macrocytosis Cancelled Spherocytes Cancelled Sickle Cells Cancelled Target Cells Cancelled Tear Drop Cells Cancelled Ovalocytes Cancelled Stomatocytes Cancelled Helmet Cells Cancelled [place] Bodies Cancelled [place] Rings Cancelled Tiarra Cells Cancelled Acanthocytes (Spur) Cancelled Rouleaux Cancelled Schistocytes Cancelled Morphology Comment Cancelled Eosinophil Count Cancelled Sodium Potassium Chloride Carbon Dioxide Anion Gap BUN Creatinine Estimated GFR POC Glucose 206 H 165 H Random Glucose Calcium Procalcitonin Urine Color Urine Appearance Urine pH Ur Specific Vi[place] Urine Protein Urine Glucose (UA) Urine Ketones Urine Blood Urine Nitrite Urine Bilirubin Urine Urobilinogen Ur Leukocyte Esterase Urine RBC Urine WBC Ur Epithelial Cells 04/22/18 04/22/18 04/22/18 06:40 06:40 10:45 WBC Corrected WBC RBC Hgb Hct MCV MCH MCHC RDW Plt Count MPV Gran % Neutrophils % Band Neutrophils % Lymphocytes % Monocytes % Eosinophils % Basophils % Lymphocytes Monocytes Basophils Metamyelocytes Myelocytes Promyelocytes Nucleated RBCs Differential Comment Hypersegmented Polys Plasma Cells Other Cell Type Toxic Granulation Dohle Bodies Jessica Rods Platelet Estimate RBC Morphology Polychromasia Hypochromasia Poikilocytosis Basophilic Stippling Anisocytosis Microcytosis Macrocytosis Spherocytes Sickle Cells Target Cells Tear Drop Cells Ovalocytes Stomatocytes Helmet Cells [place] Bodies [place] Rings [place] Cells Acanthocytes (Spur) Rouleaux Schistocytes Morphology Comment Eosinophil Count Sodium 137 Potassium 4.6 H Chloride 102 Carbon Dioxide 24.0 Anion Gap 11.0 BUN 28 H Creatinine 1.1 Estimated GFR > 60 POC Glucose Random Glucose 104 Calcium 8.8 Procalcitonin 0.036 Urine Color Yellow Urine Appearance Clear Urine pH 5.0 Ur Specific [place] 1.025 Urine Protein Trace H Urine Glucose (UA) Negative Urine Ketones Negative Urine Blood Trace-i Urine Nitrite Negative Urine Bilirubin Negative Urine Urobilinogen 0.2 Ur Leukocyte Esterase Trace H Urine RBC 3 - 6 Urine WBC 0 - 2 Ur Epithelial Cells None seen - Chest X-Ray In Last 90 Days Chest X-Ray Within Last 90 Days: Yes Status: Report reviewed Discharge Potential - Discharge Needs Community Services Used Prior to Admission: None Patient Discharge Plan Description: Return Home, Visiting Nurse Plan - Swing Bed Certification Initial Certification Due: 04/18/18 14 Day Re-Cert Due: 05/02/18 44 Day Re-Cert Due: 06/01/18 74 Day Re-Cert Due: 07/01/18 - Detailed Diagnosis and Plan (1) Diarrhea Current Visit: Yes Status: Acute Base Code: R19.7 - DIARRHEA, UNSPECIFIED Comment: 04/22/18: -Known C. diff infection, completed 10 days of PO Vancomycin treatment on Sunday04/20/18 -Rectal tube for fecal management in place d/t incontinence, skin maceration and frequent stooling -Continues to have loose stool -Reduce Metformin from 1000mg BID to 500mg BID to see if it helps to reduce diarrhea -Continue Align 4mg daily -IV NS x 1 L started on 04/21/18 d/t fluid loss r/t diarrhea (2) Orthostatic hypotension Current Visit: Yes Status: Acute Base Code: I95.1 - ORTHOSTATIC HYPOTENSION Comment: 04/22/18: -IV NS @ 83 ml/hr x 1 L for elevated BUN and increased c/o dizziness with position changes on 04/21/18 -Midodrine increased to 5mg BID at 0800 and 1200 (timed to benefit therapy sessions) -Outpatient cardiology appointment set up for end april (3) Diabetes type 2, controlled Current Visit: Yes Status: Acute Base Code: E11.9 - TYPE 2 DIABETES MELLITUS WITHOUT COMPLICATIONS Comment: 04/22/18: History of type 2 diabetes with insulin use -ADA diet -Metformin at 1000mg BID, decreased to 500mg BID to see if it helps to reduce diarrhea -Levemir increased from 28 units daily to 30 units daily -Accucheck TID -Novolog sliding scale, adjusted to patient's home insulin regimen (4) Low hemoglobin Current Visit: Yes Status: Acute Base Code: D64.9 - ANEMIA, UNSPECIFIED Comment: 04/22/18: - Hgb 9.2 today - On Eliquis 2.5mg BID per Orthopedic Surgeon (Dr. Perez) for DVT prophylaxis - Stool occult negative - No obvious signs of bleeding - Continue daily iron supplement (5) S/P right hip fracture Current Visit: Yes Status: Acute Base Code: Z87.81 - PERSONAL HISTORY OF ( HEALED) TRAUMATIC FRACTURE Comment: 04/22/18: Patient had a slip and fall on the ice 04/03. Was admitted to [facility] for a right intertrochanteric femur hip fracture. -Surgical repair 04/04 with a right cephalo-medullary nail placed -[place] 5/325 q6h prn pain -Tylenol as needed for mild pain -F/u with orthopedic surgeon on Sunday04/22/18 canceled d/t c.diff infection -Dr. Perez contact and okay'd to have ok removed from pt incision -Nursing staff to contact Dr. Perez to inquire on stop date for Eliquis -PT/OT working with pt (6) Skin maceration Current Visit: Yes Status: Acute Base Code: L98.8 - OTH DISRD OF THE SKIN AND SUBCUTANEOUS TISSUE Comment: 04/22/18: - Fecal management system placed per rectum as pt continues to have loose stool - Bilateral buttocks healing well - Hydrocortisone 1% ointment twice a day to macerated area, followed by Calmoseptine - Naqvi present, will continue with naqvi while skin breakdown is present - Encourage Turn and Repositioning at least q. 2 hours (7) Urinary retention Current Visit: Yes Status: Acute Base Code: R33.9 - RETENTION OF URINE, UNSPECIFIED Comment: 04/22/18: -Trial naqvi catheter removal -Bladder scan if unable to void after 8 hours -Orders to straight cath for bladder scan volumes greater than 400ml -Patient had urinary retention post-op -Discharged with naqvi catheter, started on Flomax, and instructed to follow-up with urology in 5-7 days for a voiding trial -Flomax stopped d/t syncope (8) Weakness Current Visit: Yes Status: Acute Base Code: R53.1 - WEAKNESS Comment: 04/22: - PT/OT - Continue Midodrine 5 mg BID for orthostatic hypotension (9) Full code status Current Visit: Yes Status: Acute Base Code: Z78.9 - OTHER SPECIFIED HEALTH STATUS Comment: 04/22/18: -Full code status (10) DVT prophylaxis Current Visit: Yes Status: Acute Base Code: [id number] - Comment: 04/22/18: -Patient was started on Eliquis 2.5mg BID at [facility] for DVT prophylaxis post-op -Will continue with Eliquis at this time -Nursing to contact Dr. Perez (orthopedist) to inquire on stop date for Eliquis (11) Elevated WBC count Current Visit: Yes Status: Acute Base Code: D72.829 - ELEVATED WHITE BLOOD CELL COUNT, UNSPECIFIED Comment: 04/22/18: -WBC trending up -CXR on 04/21/18 negative -U/A on 04/22/18 negative -Surgical incision healing well, no s/sx of infection -Some erythema and warmth to posterior RLE, holding off on starting any empirical antibiotics d/t recent c.diff infection.
--- NOTE | 2018-04-22 11:52 | Physical Therapy Tx Note ---
Physical Therapy Tx Note - Treatment Note Tolerated: Fair Total Time Spent With Patient: 30 Physical Therapy Tx Note: Detail (The patient was in bed when PT arrived. The patient was independent with supine to sit with use trapeze (B/P dropped minimally). The patient stood to walker (B/P dropped to 115/72). The patient ambulated with wheeled walker a distance of 2 feet x 1 PWB on R LE with CG of 1 plus 1 to handle equipment. The patient requested to sit due to fatigue and slight lightheadedness. The patient rested in chair, completing ankle pumps and LAQ. The patient then ambulated 5 feet to recliner chair with wheeled walker with CG of 1, plus one following in chair and handlilng equipment. The patient required cueing to reach for chair with stand to sit. The patient was left in recliner with family present. The patient did well with mobility and ambulation. The patient's endurance for physical activity remains poor.) Physical Therapy Problem List: Detail (1)Decreased R LE strength 2) Orthostatic Hypotension 3) Decreased ability to complete prolonged physical activity 4) Impaired ambulation secondary to s/p R hip fracture) Physical Therapy Goals: 1) The patient will be independent with bed mobility without use of trapeze. 2) The patient will ambulate with appropriate assistive device PWB on the R LE with supervision for safety only. 3) The patient will ambulate on stairs using proper technique with supervision for safety. 4) The patient will tolerate 30 minutes of physical activity with one rest period. 5) The patient will be independent with all transfers including car transfer. 6) Increase R LE strength 1/3 muscle grade to increase stability with gait. Physical Therapy Plan: PT 1-2 times a day M-F for gait training, transfer training, bed mobility and LE strengthening exercises.
--- NOTE | 2018-04-22 14:48 | Occupational Therapy Tx Note ---
Occupational Therapy Tx Note - Treatment Note Tolerated: Fair Total Time Spent With Patient: 40 (ADL) Occupational Therapy Treatment Note: Detail (S: Pt up in recliner, willing to try showering. O: Sit to stand with CG assist and amb PWB 10 feet to shower with 2 wheeled walker and CG assist x 1. Pt sat and doffed gown with assist to untie, left slipper sock with foot propped on stool and right slipper sock required max assist. Pt completed showering in sitting with hand held shower and assist for back and right LE. Pt was very fatigued and required multiple short rest breaks. Pt dried self with assist for back and right LE. Pt donned gown with min assist, right slipper sock with max assist and left slipper sock with mod assist to start over toes. Pt brushed hair Indly. Pt stood with grab bar and walker and wheelchair was placed behind him, he was wheeled to EOB and completed sit to stand from wheelchair and transferred to EOB with CG assist and to supine Indly. Pt Ind with bed mobility using trapeze. A: Min-mod assist required for showering in sitting, min-max assist with donning/doffing gown and slipper socks, improved mobility although still significantly impaired , poor but improving endurance for ADL activities.) Occupational Therapy Problem List: Detail (1. Decreased activity tolerance needed for safe and Ind self cares. 2. Decreased functional mobility. 3. Decreased Ind with showering and dressing activities. 4. Orthostatic hypotension which is limiting patients functional abilities.) Occupational Therapy Goals: 1. Pt will be Ind with functional mobility needed to perform showering and dressing activities. 2. Pt will demonstrate improved endurance to allow Ind with self cares 3. Pt will be safe and Ind with total body dressing. 4. Pt will be Ind with showering in sitting or standing. Prognosis: Good Occupational Therapy Plan: OT 2-4 times per week to address functional mobility , self cares and activity tolerance to allow safe return home.
[2018-04-22] MEDS: ACETAMINOPHEN 325 MG TAB PO PRN (18:46)
[2018-04-22] MEDS: ATORVASTATIN 20 MG TABLET PO SCH (22:37)
[2018-04-23] MEDS: HYDROCORTISONE 1% TOP SCH ×3 (02:34→22:57)
[2018-04-23] MEDS: METFORMIN 500 MG TABLET PO SCH ×2 (07:55→18:51)
[2018-04-23] MEDS: NOVOLOG FLEXPEN (INSULIN ASPART) 100 UNITS/ML SQ SCH ×3 (07:55→18:51)
[2018-04-23] MEDS: MIDODRINE HCL 5 MG TABLET PO SCH ×2 (07:56→11:53)
[2018-04-23] MEDS: LEVEMIR FLEXTOUCH 100 UNIT/ML INSULIN PEN SQ SCH (09:13)
[2018-04-23] MEDS: BIFIDOBACTERIUM INFANTIS 4 MG CAPSULE PO SCH (09:14)
[2018-04-23] MEDS: APIXABAN 2.5MG TABLET PO SCH ×2 (09:15→22:56)
[2018-04-23] MEDS: CALCIUM CARB/VITAMIN D 500MG/200IU PO SCH ×2 (09:15→22:56)
[2018-04-23] MEDS: FERROUS SULFATE 325 MG TAB PO SCH (09:15)
[2018-04-23] MEDS: POTASSIUM CHLORIDE 20 MEQ TABLET PO SCH (09:15)
--- NOTE | 2018-04-23 11:46 | Physical Therapy Tx Note ---
Physical Therapy Tx Note - Treatment Note Tolerated: Good Total Time Spent With Patient: 30 Physical Therapy Tx Note: Detail (The patient was up in chair when PT arrived. Order was received to progress patient's WB status.The patient was independent with sit to and from stand transfer and reached back without verbal cues. The patient ambulated within limits of room (15 feet) with CG of 1 plus one to handle equipment, WBAT on the R. The patient completed LE strengthening exercises including: with yellow theraband hamstring curls and hip abduction and L LAQ x 15 reps, R LAQ without resistance, gluteals, adductor squeezes and ankle pumps all x 15 reps. R lower leg continues to be red and warm to touch, posterior surface. Nursing staff was notified. Continue Plan of Care.) Physical Therapy Problem List: Detail (1)Decreased R LE strength 2) Orthostatic Hypotension 3) Decreased ability to complete prolonged physical activity 4) Impaired ambulation secondary to s/p R hip fracture) Physical Therapy Goals: 1) The patient will be independent with bed mobility without use of trapeze. 2) The patient will ambulate with appropriate assistive device PWB on the R LE with supervision for safety only. 3) The patient will ambulate on stairs using proper technique with supervision for safety. 4) The patient will tolerate 30 minutes of physical activity with one rest period. 5) The patient will be independent with all transfers including car transfer. 6) Increase R LE strength 1/3 muscle grade to increase stability with gait. Physical Therapy Plan: PT 1-2 times a day M-F for gait training, transfer training, bed mobility and LE strengthening exercises.
[2018-04-23] MEDS: 0.9 % SODIUM CHLORIDE 1000ML 1,000 ML IV PRN (11:54)
--- NOTE | 2018-04-23 14:37 | Occupational Therapy Tx Note ---
Occupational Therapy Tx Note - Treatment Note Tolerated: Good Total Time Spent With Patient: 30 (gait, ther ex) Occupational Therapy Treatment Note: Detail (S: Pt up in recliner chair, tired but cooperative. O: Sit to stand with SBA and amb 15 feet in room with 2 wheeled walker, WBAT on left LE, with CG assist x 1 and assist x 1 for IV pole and other equipment mgmt. Pt reports fatigue and did not wish to ambulate further. Stand to sit in recliner Indly. [place] UE strengthening with yellow theraband 10 reps x 2 sets - shoulder abduction, scapular squeezes, shoulder extension, shoulder flexion, elbow flexion and elbow extension. A: Endurance is improving for mobility and UE activity.) Occupational Therapy Problem List: Detail (1. Decreased activity tolerance needed for safe and Ind self cares. 2. Decreased functional mobility. 3. Decreased Ind with showering and dressing activities. 4. Orthostatic hypotension which is limiting patients functional abilities.) Occupational Therapy Goals: 1. Pt will be Ind with functional mobility needed to perform showering and dressing activities. 2. Pt will demonstrate improved endurance to allow Ind with self cares 3. Pt will be safe and Ind with total body dressing. 4. Pt will be Ind with showering in sitting or standing. Prognosis: Good Occupational Therapy Plan: OT 2-4 times per week to address functional mobility , self cares and activity tolerance to allow safe return home.
[2018-04-23] MEDS: ACETAMINOPHEN 325 MG TAB PO PRN (16:45)
[2018-04-23] MEDS: ATORVASTATIN 20 MG TABLET PO SCH (22:56)
[2018-04-24] MEDS: NOVOLOG FLEXPEN (INSULIN ASPART) 100 UNITS/ML SQ SCH ×3 (07:54→17:09)
[2018-04-24] MEDS: METFORMIN 500 MG TABLET PO SCH ×2 (07:54→17:02)
[2018-04-24] MEDS: MIDODRINE HCL 5 MG TABLET PO SCH ×2 (07:55→11:45)
[2018-04-24] MEDS: FERROUS SULFATE 325 MG TAB PO SCH (09:45)
[2018-04-24] MEDS: LEVEMIR FLEXTOUCH 100 UNIT/ML INSULIN PEN SQ SCH (09:45)
[2018-04-24] MEDS: CALCIUM CARB/VITAMIN D 500MG/200IU PO SCH ×2 (09:45→21:44)
[2018-04-24] MEDS: APIXABAN 2.5MG TABLET PO SCH ×2 (09:45→21:44)
[2018-04-24] MEDS: POTASSIUM CHLORIDE 20 MEQ TABLET PO SCH (09:45)
[2018-04-24] MEDS: BIFIDOBACTERIUM INFANTIS 4 MG CAPSULE PO SCH (09:45)
[2018-04-24] MEDS: HYDROCORTISONE 1% TOP SCH ×2 (09:49→21:45)
--- NOTE | 2018-04-24 11:30 | Physical Therapy Tx Note ---
Physical Therapy Tx Note - Treatment Note Tolerated: Good Total Time Spent With Patient: 30 Physical Therapy Tx Note: Detail (The patient was up in chair when PT arrived. The patient ambulated with front wheeled walker a distance of 17 feet x 2 WBAT on the R LE with CG of 1, plus 1 handling equipment. The patient stood x 1 to cane for apox. 15 seconds, however felt unstable. The patient completed the following LE strengthening exercises with yellow band : hip abduction, hamstring curls and marching x 15 reps, hip adductor squeezes , gluteal sets, ankle pumps, LAQ all x 20 reps. The patient was fatigued after treatment. The patient was able to ambulate two laps today and was able to complete 20 reps of exercises.) Physical Therapy Problem List: Detail (1)Decreased R LE strength 2) Orthostatic Hypotension 3) Decreased ability to complete prolonged physical activity 4) Impaired ambulation secondary to s/p R hip fracture) Physical Therapy Goals: 1) The patient will be independent with bed mobility without use of trapeze. 2) The patient will ambulate with appropriate assistive device PWB on the R LE with supervision for safety only. 3) The patient will ambulate on stairs using proper technique with supervision for safety. 4) The patient will tolerate 30 minutes of physical activity with one rest period. 5) The patient will be independent with all transfers including car transfer. 6) Increase R LE strength 1/3 muscle grade to increase stability with gait. Physical Therapy Plan: PT 1-2 times a day M-F for gait training, transfer training, bed mobility and LE strengthening exercises.
[2018-04-24] MEDS: ACETAMINOPHEN 325 MG TAB PO PRN (14:51)
--- NOTE | 2018-04-24 14:57 | Occupational Therapy Tx Note ---
Occupational Therapy Tx Note - Treatment Note Tolerated: Good Total Time Spent With Patient: 20 (ther activity) Occupational Therapy Treatment Note: Detail (S: Pt resting in bed after lunch. O: Bed mobility with bed flat and no use of bed rails or trapeze completed after pt educated re: technique. He was able to demonstrate supine to sit Indly. Sit to stand and amb 20 feet to bathroom sink with 2 wheeled walker and SBA x 1 as well as 1 assist for equipment mgmt. Pt able to static stand for 3 min at sink and wash face. Pt amb 20 feet back to EOB with 2 wheeled walker and CG assist and assist for equipment mgmt. Pt able to complete sit to supine and scooted up in bed Indly without bed rail or trapeze. Pt very fatigued and unable to participate in exercises. Pt left supine in bed. A: Ind with bed mobility without trapeze or bed rails, improved mobility, endurance slowly improving but still limiting functional status.) Occupational Therapy Problem List: Detail (1. Decreased activity tolerance needed for safe and Ind self cares. 2. Decreased functional mobility. 3. Decreased Ind with showering and dressing activities. 4. Orthostatic hypotension which is limiting patients functional abilities.) Occupational Therapy Goals: 1. Pt will be Ind with functional mobility needed to perform showering and dressing activities. 2. Pt will demonstrate improved endurance to allow Ind with self cares 3. Pt will be safe and Ind with total body dressing. 4. Pt will be Ind with showering in sitting or standing. Prognosis: Good Occupational Therapy Plan: OT 2-4 times per week to address functional mobility , self cares and activity tolerance to allow safe return home.
[2018-04-24] MEDS: ATORVASTATIN 20 MG TABLET PO SCH (21:44)
[2018-04-25] MEDS: ACETAMINOPHEN 325 MG TAB PO PRN ×2 (00:28→22:25)
[2018-04-25] MEDS: MIDODRINE HCL 5 MG TABLET PO SCH ×2 (06:57→11:21)
[2018-04-25] MEDS: NOVOLOG FLEXPEN (INSULIN ASPART) 100 UNITS/ML SQ SCH ×3 (08:30→18:54)
[2018-04-25] MEDS: METFORMIN 500 MG TABLET PO SCH (08:32)
--- NOTE | 2018-04-25 08:35 | RADIOLOGY REPORT ---
EXAM: RIGHT HIP HISTORY: FOLLOW-UP RIGHT HIP SURGERY. TECHNIQUE: Two views of the right hip were obtained. Comparison: Right hip radiographs 04/03/18. FINDINGS: Interval internal fixation of the proximal right femur with improved intertrochanteric fracture site alignment, persistent superior medial displacement of the lesser trochanter, otherwise anatomic alignment. No new acute osseous findings are appreciated. Indeterminate metallic structures superimposes the pubic symphysis. Extensive vascular calcifications. IMPRESSION: ABOVE. JOB NUMBER: [id number] MTDD
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
--- NOTE | 2018-04-25 10:48 | Physical Therapy Tx Note ---
Physical Therapy Tx Note - Treatment Note Tolerated: Good Total Time Spent With Patient: 45 Physical Therapy Tx Note: Detail (Pt was sitting up in recliner upon arrival; awake/alert, cooperative for therapy. Nrsg removed naqvi catheter prior to PT. Pt's walker, including wheels and legs, was bleach-wiped and allowed to dry for 5 minutes; we assisted patient to don booties and gown. Sit/stand transfer w/SBA to front-wheeled walker; stood for gown and belt adjustment for about two minutes w/no complaints of lightheadedness. Ambulated WBAT R LE w/front wheeled walker for 48 feet (bedside to hallway to next room down and back) w/ CGA and assist for bowel management system. Transferred to recliner independently; assisted to remove gown and booties. Left up in recliner w/ bedside table and call light in reach. Nrsg notified. Pt reported fatigue w/ ambulation. Reported "a little" pain in R hip.) Physical Therapy Problem List: Detail (1)Decreased R LE strength 2) Orthostatic Hypotension 3) Decreased ability to complete prolonged physical activity 4) Impaired ambulation secondary to s/p R hip fracture) Physical Therapy Goals: 1) The patient will be independent with bed mobility without use of trapeze. 2) The patient will ambulate with appropriate assistive device PWB on the R LE with supervision for safety only. 3) The patient will ambulate on stairs using proper technique with supervision for safety. 4) The patient will tolerate 30 minutes of physical activity with one rest period. 5) The patient will be independent with all transfers including car transfer. 6) Increase R LE strength 1/3 muscle grade to increase stability with gait. Prognosis: Good Physical Therapy Plan: PT 1-2 times a day M-F for gait training, transfer training, bed mobility and LE strengthening exercises.
[2018-04-25] MEDS: FERROUS SULFATE 325 MG TAB PO SCH (10:57)
[2018-04-25] MEDS: CALCIUM CARB/VITAMIN D 500MG/200IU PO SCH ×2 (10:57→22:25)
[2018-04-25] MEDS: POTASSIUM CHLORIDE 20 MEQ TABLET PO SCH (10:58)
[2018-04-25] MEDS: BIFIDOBACTERIUM INFANTIS 4 MG CAPSULE PO SCH (10:58)
[2018-04-25] MEDS: APIXABAN 2.5MG TABLET PO SCH ×2 (10:59→22:25)
[2018-04-25] MEDS: LEVEMIR FLEXTOUCH 100 UNIT/ML INSULIN PEN SQ SCH (10:59)
[2018-04-25] MEDS: HYDROCORTISONE 1% TOP SCH ×2 (11:21→22:25)
--- NOTE | 2018-04-25 14:10 | Physical Therapy Tx Note ---
Physical Therapy Tx Note - Treatment Note Tolerated: Good Total Time Spent With Patient: 25 Physical Therapy Tx Note: Detail (Patient was sleeping in chair upon [employer] arrival. Patient states right hip sore this afternoon. Patient transferred sit to and from stand CGA x1. Patient ambulated 20 feet with wheeled walker CGA x1. Patient performed the following seated exercises in chair x20 reps each : marching, LAQ, heel raises, toe raises, hip abduction with yellow theraband, isometric hip adduction, hamstring curls with yellow theraband, shoulder flexion , bicep curls with red theraband, and rowing with red theraband. Patient transferred sit to and from stand CGA x1. Patient ambulated 10 feet with wheeled walker CGA x1. Patient transferred sit to supine independently. Patient scooted up in bed independently. Patient tolerated treatment well. Patient declined further exercises due to fatigue. Patient was left supine in bed with call light within reach.) Physical Therapy Problem List: Detail (1)Decreased R LE strength 2) Orthostatic Hypotension 3) Decreased ability to complete prolonged physical activity 4) Impaired ambulation secondary to s/p R hip fracture) Physical Therapy Goals: 1) The patient will be independent with bed mobility without use of trapeze. 2) The patient will ambulate with appropriate assistive device PWB on the R LE with supervision for safety only. 3) The patient will ambulate on stairs using proper technique with supervision for safety. 4) The patient will tolerate 30 minutes of physical activity with one rest period. 5) The patient will be independent with all transfers including car transfer. 6) Increase R LE strength 1/3 muscle grade to increase stability with gait. Prognosis: Good Physical Therapy Plan: PT 1-2 times a day M-F for gait training, transfer training, bed mobility and LE strengthening exercises.
[2018-04-25] MEDS: CHOLESTYRAMINE/ASPARTANE PKT PO SCH ×2 (16:53→22:25)
[2018-04-25] MEDS: ATORVASTATIN 20 MG TABLET PO SCH (22:24)
[2018-04-26] MEDS: MIDODRINE HCL 5 MG TABLET PO SCH ×2 (06:01→10:36)
[2018-04-26] MEDS: NOVOLOG FLEXPEN (INSULIN ASPART) 100 UNITS/ML SQ SCH ×3 (09:10→18:09)
--- NOTE | 2018-04-26 10:12 | Physical Therapy Tx Note ---
Physical Therapy Tx Note - Treatment Note Tolerated: Fair Total Time Spent With Patient: 15 Physical Therapy Tx Note: Detail (The patient was up in chair when PT arrived. The patient stated he did not sleep well last night and does not feel good. Patient was reluctant to participate with PT. The patient ambulated 13 feet x 1 , 14 feet x 1 with CG/supervision of 1 WBAT on the R LE. The patient was fatigued after ambulating short distances and refused further activity. Pt. was left in recliner with call light within reach. Will see patient this pm.) Physical Therapy Problem List: Detail (1)Decreased R LE strength 2) Orthostatic Hypotension 3) Decreased ability to complete prolonged physical activity 4) Impaired ambulation secondary to s/p R hip fracture) Physical Therapy Goals: 1) The patient will be independent with bed mobility without use of trapeze. 2) The patient will ambulate with appropriate assistive device PWB on the R LE with supervision for safety only. 3) The patient will ambulate on stairs using proper technique with supervision for safety. 4) The patient will tolerate 30 minutes of physical activity with one rest period. 5) The patient will be independent with all transfers including car transfer. 6) Increase R LE strength 1/3 muscle grade to increase stability with gait. Physical Therapy Plan: PT 1-2 times a day M-F for gait training, transfer training, bed mobility and LE strengthening exercises.
[2018-04-26] MEDS: FERROUS SULFATE 325 MG TAB PO SCH (10:36)
[2018-04-26] MEDS: CALCIUM CARB/VITAMIN D 500MG/200IU PO SCH ×2 (10:36→23:02)
[2018-04-26] MEDS: POTASSIUM CHLORIDE 20 MEQ TABLET PO SCH (10:36)
[2018-04-26] MEDS: APIXABAN 2.5MG TABLET PO SCH ×2 (10:36→23:02)
[2018-04-26] MEDS: BIFIDOBACTERIUM INFANTIS 4 MG CAPSULE PO SCH (10:37)
[2018-04-26] MEDS: HYDROCORTISONE 1% TOP SCH ×2 (10:37→23:06)
[2018-04-26] MEDS: CHOLESTYRAMINE/ASPARTANE PKT PO SCH ×3 (10:37→23:03)
[2018-04-26] MEDS: LEVEMIR FLEXTOUCH 100 UNIT/ML INSULIN PEN SQ SCH (10:39)
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
--- NOTE | 2018-04-26 13:45 | Occupational Therapy Tx Note ---
Occupational Therapy Tx Note - Treatment Note Tolerated: Fair Total Time Spent With Patient: 20 (ther activity) Occupational Therapy Treatment Note: Detail (S: Pt resting in bed, still not feeling well today but wants to try urinating. O: Supine to sit Indly with trapeze. Sit to stand and amb 15 feet to toilet with 2 wheeled walker and CG assist as well as assist for bowel equipment. Pt able to static stand for 2 min while attempting to urinate. Pt amb 10 feet to doorway and able to step up onto scale with min assist and walker. Pt amb 10 feet back to toilet and stood 2 min to urinate a small amount, pt amb 10 feet out into room and back to toilet with walker and stood 2 min to urinate a small amount a second time. Pt amb 15 feet back to EOB and sit to supine Ind with trapeze. Pt reports he is too fatigued to complete exercises. A: Pt demonstrates improved endurance with ambulation and static standing although he continues to fatigue very easily.) Occupational Therapy Problem List: Detail (1. Decreased activity tolerance needed for safe and Ind self cares. 2. Decreased functional mobility. 3. Decreased Ind with showering and dressing activities. 4. Orthostatic hypotension which is limiting patients functional abilities.) Occupational Therapy Goals: 1. Pt will be Ind with functional mobility needed to perform showering and dressing activities. 2. Pt will demonstrate improved endurance to allow Ind with self cares 3. Pt will be safe and Ind with total body dressing. 4. Pt will be Ind with showering in sitting or standing. Prognosis: Good Occupational Therapy Plan: OT 2-4 times per week to address functional mobility , self cares and activity tolerance to allow safe return home.
[2018-04-26] MEDS: ACETAMINOPHEN 325 MG TAB PO PRN (15:37)
[2018-04-26] MEDS: ONDANSETRON 4 MG ODT TABLET SL PRN (17:33)
[2018-04-26] MEDS: ATORVASTATIN 20 MG TABLET PO SCH (23:02)
[2018-04-27 02:27] LABS: URINE APPEARANCE SL CLOUDY; URINE BILIRUBIN NEGATIVE (NEGATIVE); URINE BLOOD SMALL (NEGATIVE); URINE COLOR YELLOW; URINE GLUCOSE (UA) NEGATIVE (NEGATIVE); URINE KETONE NEGATIVE (NEGATIVE); URINE LEUKOCYTE ESTERASE SMALL (NEGATIVE); URINE NITRITE POSITIVE (NEGATIVE); URINE UROBILINOGEN 0.2 E.U./dL (0.20 - 1.00)
[2018-04-27 02:40] LABS: URINE BACTERIA 4+; URINE EPITHELIAL CELLS 0 - 2 (FEW); URINE RBC 0 - 2 (NONE SEEN); URINE WBC 21 - 35 (0-2/hpf)
[2018-04-27] MEDS: MIDODRINE HCL 5 MG TABLET PO SCH ×2 (06:01→11:06)
[2018-04-27] MEDS: NOVOLOG FLEXPEN (INSULIN ASPART) 100 UNITS/ML SQ SCH ×3 (08:26→17:34)
[2018-04-27] MEDS: LEVEMIR FLEXTOUCH 100 UNIT/ML INSULIN PEN SQ SCH (09:24)
[2018-04-27] MEDS: APIXABAN 2.5MG TABLET PO SCH ×2 (09:27→21:37)
[2018-04-27] MEDS: BIFIDOBACTERIUM INFANTIS 4 MG CAPSULE PO SCH (09:27)
[2018-04-27] MEDS: CALCIUM CARB/VITAMIN D 500MG/200IU PO SCH ×2 (09:27→21:37)
[2018-04-27] MEDS: POTASSIUM CHLORIDE 20 MEQ TABLET PO SCH (09:28)
[2018-04-27] MEDS: HYDROCORTISONE 1% TOP SCH ×2 (09:28→21:37)
[2018-04-27] MEDS: FERROUS SULFATE 325 MG TAB PO SCH (09:28)
[2018-04-27] MEDS: CHOLESTYRAMINE/ASPARTANE PKT PO SCH ×3 (09:28→21:37)
[2018-04-27] MEDS: ACETAMINOPHEN 325 MG TAB PO PRN ×2 (13:48)
[2018-04-27] MEDS: ATORVASTATIN 20 MG TABLET PO SCH (21:37)
[2018-04-28] MEDS: MIDODRINE HCL 5 MG TABLET PO SCH ×2 (06:07→11:56)
[2018-04-28] MEDS: NOVOLOG FLEXPEN (INSULIN ASPART) 100 UNITS/ML SQ SCH ×3 (07:59→17:29)
[2018-04-28] MEDS: APIXABAN 2.5MG TABLET PO SCH ×2 (09:48→23:11)
[2018-04-28] MEDS: BIFIDOBACTERIUM INFANTIS 4 MG CAPSULE PO SCH (09:48)
[2018-04-28] MEDS: CALCIUM CARB/VITAMIN D 500MG/200IU PO SCH ×2 (09:48→23:11)
[2018-04-28] MEDS: LEVEMIR FLEXTOUCH 100 UNIT/ML INSULIN PEN SQ SCH (09:49)
[2018-04-28] MEDS: FERROUS SULFATE 325 MG TAB PO SCH (09:49)
[2018-04-28] MEDS: POTASSIUM CHLORIDE 20 MEQ TABLET PO SCH (09:49)
[2018-04-28] MEDS: CHOLESTYRAMINE/ASPARTANE PKT PO SCH ×3 (09:52→23:11)
[2018-04-28] MEDS: HYDROCORTISONE 1% TOP SCH ×2 (09:52→23:11)
[2018-04-28] MEDS: ACETAMINOPHEN 325 MG TAB PO PRN (16:00)
[2018-04-28] MEDS: ATORVASTATIN 20 MG TABLET PO SCH (23:10)
[2018-04-29] MEDS: MIDODRINE HCL 5 MG TABLET PO SCH ×2 (07:01→11:30)
[2018-04-29] MEDS: NOVOLOG FLEXPEN (INSULIN ASPART) 100 UNITS/ML SQ SCH ×3 (07:51→17:44)
[2018-04-29] MEDS: BIFIDOBACTERIUM INFANTIS 4 MG CAPSULE PO SCH (09:54)
[2018-04-29] MEDS: APIXABAN 2.5MG TABLET PO SCH ×2 (09:55→22:09)
[2018-04-29] MEDS: CALCIUM CARB/VITAMIN D 500MG/200IU PO SCH ×2 (09:55→22:09)
[2018-04-29] MEDS: FERROUS SULFATE 325 MG TAB PO SCH (09:55)
[2018-04-29] MEDS: CHOLESTYRAMINE/ASPARTANE PKT PO SCH ×3 (09:55→22:09)
[2018-04-29] MEDS: POTASSIUM CHLORIDE 20 MEQ TABLET PO SCH (09:55)
[2018-04-29] MEDS: HYDROCORTISONE 1% TOP SCH ×2 (09:56→22:19)
[2018-04-29] MEDS: ACETAMINOPHEN 325 MG TAB PO PRN (09:56)
[2018-04-29] MEDS: LEVEMIR FLEXTOUCH 100 UNIT/ML INSULIN PEN SQ SCH (09:57)
--- NOTE | 2018-04-29 11:02 | Physical Therapy Tx Note ---
Physical Therapy Tx Note - Treatment Note Tolerated: Good Total Time Spent With Patient: 30 Physical Therapy Tx Note: Detail (The patient was in bed when PT arrived. The patient was independent with bed mobility. The patient ambulated with front wheeled walker a distance of 30 feet x 1 with supervision for safety only WBAT on the RLE. The patient declined to ambulate in the hallway. The patient declined to sit up, stating he just got back to bed. The patient completed the following LE exercises: gluteal sets, adductor squeezes x 20 reps, hip abduction R LE , SLR , SAQ all x 10 reps. The patient no longer has R hip pain with movement.) Physical Therapy Problem List: Detail (1)Decreased R LE strength 2) Orthostatic Hypotension 3) Decreased ability to complete prolonged physical activity 4) Impaired ambulation secondary to s/p R hip fracture) Physical Therapy Goals: 1) The patient will be independent with bed mobility without use of trapeze. (Goal Met). 2) The patient will ambulate with appropriate assistive device PWB on the R LE with supervision for safety only. ( Goal Met- WBAT on the R). 3) The patient will ambulate on stairs using proper technique with supervision for safety. 4) The patient will tolerate 30 minutes of physical activity with one rest period. (Goal Met). 5) The patient will be independent with all transfers including car transfer. 6) Increase R LE strength 1/3 muscle grade to increase stability with gait. Physical Therapy Plan: PT 1-2 times a day M-F for gait training, transfer training, bed mobility and LE strengthening exercises.
[2018-04-29] MEDS: TAMSULOSIN HCL 0.4 MG CAP.ER.24H PO SCH (15:17)
--- NOTE | 2018-04-29 15:34 | Occupational Therapy Tx Note ---
Occupational Therapy Tx Note - Treatment Note Tolerated: Fair Total Time Spent With Patient: 30 (ADL) Occupational Therapy Treatment Note: Detail (S: Pt up in chair, reports being fatigued today. O: Pt educated re: modified LE dressing technique and he was able to don hospital pants with moderate difficulty but Indly after several attempts to start right foot in pantleg. Pt doffed pants Indly using modified technique. Pt able to doff right slipper sock Indly and don right sock with moderate assist to start over toes and distal foot, pt able to don slip on shoe with min difficulty and fasten velcro with moderate difficulty. Pt Ind with doffing sock and sock. A: Pt requires min to mod assist for LE dressing due to hip pain and stiffness using modified LE dressing techniques.) Occupational Therapy Problem List: Detail (1. Decreased activity tolerance needed for safe and Ind self cares. 2. Decreased functional mobility. 3. Decreased Ind with showering and dressing activities. 4. Orthostatic hypotension which is limiting patients functional abilities.) Occupational Therapy Goals: 1. Pt will be Ind with functional mobility needed to perform showering and dressing activities. 2. Pt will demonstrate improved endurance to allow Ind with self cares 3. Pt will be safe and Ind with total body dressing. 4. Pt will be Ind with showering in sitting or standing. Prognosis: Good Occupational Therapy Plan: OT 2-4 times per week to address functional mobility , self cares and activity tolerance to allow safe return home.
[2018-04-29] MEDS: ONDANSETRON 4 MG ODT TABLET SL PRN (17:47)
[2018-04-29] MEDS: ATORVASTATIN 20 MG TABLET PO SCH (22:09)
[2018-04-30] MEDS: ACETAMINOPHEN 325 MG TAB PO PRN ×3 (00:44→22:44)
[2018-04-30] MEDS: MIDODRINE HCL 5 MG TABLET PO SCH ×2 (06:08→13:29)
[2018-04-30] MEDS: NOVOLOG FLEXPEN (INSULIN ASPART) 100 UNITS/ML SQ SCH ×3 (08:02→17:36)
[2018-04-30] MEDS: LEVEMIR FLEXTOUCH 100 UNIT/ML INSULIN PEN SQ SCH (09:10)
[2018-04-30] MEDS: CALCIUM CARB/VITAMIN D 500MG/200IU PO SCH ×2 (09:13→21:58)
[2018-04-30] MEDS: APIXABAN 2.5MG TABLET PO SCH ×2 (09:14→21:58)
[2018-04-30] MEDS: TAMSULOSIN HCL 0.4 MG CAP.ER.24H PO SCH (09:14)
[2018-04-30] MEDS: POTASSIUM CHLORIDE 20 MEQ TABLET PO SCH (09:14)
[2018-04-30] MEDS: BIFIDOBACTERIUM INFANTIS 4 MG CAPSULE PO SCH (09:14)
[2018-04-30] MEDS: FERROUS SULFATE 325 MG TAB PO SCH (09:14)
[2018-04-30] MEDS: HYDROCORTISONE 1% TOP SCH ×2 (09:15→21:58)
[2018-04-30] MEDS: CHOLESTYRAMINE/ASPARTANE PKT PO SCH ×4 (09:15→21:58)
--- NOTE | 2018-04-30 14:50 | Physical Therapy Tx Note ---
Physical Therapy Tx Note - Treatment Note Tolerated: Good Total Time Spent With Patient: 25 Physical Therapy Tx Note: Detail (The patient was in bed when PT arrived. The patient was independent with supine to and from sit without use of devices. The patient ambulated 13 feet x 2 independently with front wheeled walker WBAT on the R LE. The patient was able to stand and hit and kick a balloon for balance. The patient was unable to take both hands off walker when balancing. The patient was fatigue after 25 minutes and requested to go to bed. The patient declined ambulating on stairs today.) Physical Therapy Problem List: Detail (1)Decreased R LE strength 2) Orthostatic Hypotension 3) Decreased ability to complete prolonged physical activity 4) Impaired ambulation secondary to s/p R hip fracture) Physical Therapy Goals: 1) The patient will be independent with bed mobility without use of trapeze. (Goal Met). 2) The patient will ambulate with appropriate assistive device PWB on the R LE with supervision for safety only. ( Goal Met- WBAT on the R). 3) The patient will ambulate on stairs using proper technique with supervision for safety. 4) The patient will tolerate 30 minutes of physical activity with one rest period. (Goal Met). 5) The patient will be independent with all transfers including car transfer. 6) Increase R LE strength 1/3 muscle grade to increase stability with gait. Physical Therapy Plan: PT 1-2 times a day M-F for gait training, transfer training, bed mobility and LE strengthening exercises.
[2018-04-30] MEDS: ATORVASTATIN 20 MG TABLET PO SCH (21:58)
[2018-05-01] MEDS: MIDODRINE HCL 5 MG TABLET PO SCH ×2 (06:24→10:18)
[2018-05-01 07:04] LABS: HEMATOCRIT 28.5 % (42.0-52.0); HEMOGLOBIN 8.9 gm/dl (14.0-18.0); MEAN CELL VOLUME 87.2 fl (81-97); MEAN CORPUSCULAR HEMOGLOBIN 27.2 pg (27-33); MEAN CORPUSCULAR HGB CONC 31.2 g/dl (32-36); MEAN PLATELET VOLUME 9.8 fl (7.4-10.4); PLATELET COUNT 486 K/uL (130-400); RED BLOOD COUNT 3.27 M/uL (4.40-5.70); RED CELL DISTRIBUTION WIDTH 13.2 % (11.5-14.5); WHITE BLOOD COUNT W/O DIFF 17.6 K/uL (4.2-12.2)
[2018-05-01 07:18] LABS: CREATININE 1.4 mg/dL (0.7-1.2)
[2018-05-01] MEDS: NOVOLOG FLEXPEN (INSULIN ASPART) 100 UNITS/ML SQ SCH ×3 (09:10→17:09)
[2018-05-01] MEDS: ACETAMINOPHEN 325 MG TAB PO PRN ×2 (09:16→22:27)
[2018-05-01] MEDS: LEVEMIR FLEXTOUCH 100 UNIT/ML INSULIN PEN SQ SCH (10:09)
[2018-05-01] MEDS: CHOLESTYRAMINE/ASPARTANE PKT PO SCH ×3 (10:16→21:58)
[2018-05-01] MEDS: FERROUS SULFATE 325 MG TAB PO SCH (10:16)
[2018-05-01] MEDS: POTASSIUM CHLORIDE 20 MEQ TABLET PO SCH (10:17)
[2018-05-01] MEDS: CALCIUM CARB/VITAMIN D 500MG/200IU PO SCH ×2 (10:17→21:58)
[2018-05-01] MEDS: TAMSULOSIN HCL 0.4 MG CAP.ER.24H PO SCH (10:17)
[2018-05-01] MEDS: BIFIDOBACTERIUM INFANTIS 4 MG CAPSULE PO SCH (10:17)
[2018-05-01] MEDS: APIXABAN 2.5MG TABLET PO SCH ×2 (10:17→21:58)
[2018-05-01] MEDS: HYDROCORTISONE 1% TOP SCH ×2 (11:34→21:59)
--- NOTE | 2018-05-01 11:49 | Physical Therapy Tx Note ---
Physical Therapy Tx Note - Treatment Note Tolerated: Good Total Time Spent With Patient: 20 Physical Therapy Tx Note: Detail (The patient was in bed when PT arrived. The patient completed bed mobility (supine to sit) independently with use of railing only. The patient ambulated independently in room (11 feet) WBAT on the R LE. The patient was taken to stairs and ambulated on steps with railing and quad cane with CG of 1, supervision of one for equipment and verbal cues for safety. The patient declined ambulating in hallway due to fatigue.The patient was returned to room and stood to urinate with aprox. a tsp. of urine production. The patient was left in recliner with hot compress and call light in place. Will practice stairs one more session with patient's son present.) Physical Therapy Problem List: Detail (1)Decreased R LE strength 2) Orthostatic Hypotension 3) Decreased ability to complete prolonged physical activity 4) Impaired ambulation secondary to s/p R hip fracture) Physical Therapy Goals: 1) The patient will be independent with bed mobility without use of trapeze. (Goal Met). 2) The patient will ambulate with appropriate assistive device PWB on the R LE with supervision for safety only. ( Goal Met- WBAT on the R). 3) The patient will ambulate on stairs using proper technique with supervision for safety. 4) The patient will tolerate 30 minutes of physical activity with one rest period. (Goal Met). 5) The patient will be independent with all transfers including car transfer. 6) Increase R LE strength 1/3 muscle grade to increase stability with gait. Physical Therapy Plan: PT 1-2 times a day M-F for gait training, transfer training, bed mobility and LE strengthening exercises.
[2018-05-01] MEDS: LEVOFLOXACIN 500 MG TABLET PO SCH (12:17)
--- NOTE | 2018-05-01 13:49 | Occupational Therapy Tx Note ---
Occupational Therapy Tx Note - Treatment Note Tolerated: Fair Total Time Spent With Patient: 35 (ADL) Occupational Therapy Treatment Note: Detail (S: Pt resting in bed, agreeable to showering although he is fatigued. O: Supine to sit Indly with bed rail, sit to stand and amb to toilet with walker and SBA. Pt seated on toilet to attempt voiding but he was unable. Pt doffed slipper socks and gown Indly. Pt amb to shower and completed partial body showering in sitting, he was fatigued and required assist for hair and back. Pt dried self Indly. Pt donned gown with assist to tie and amb back to EOB with walker and SBA. Sit to supine Indly. Slippers donned per OT due to patient fatigue. A: Pt continues with decreased endurance in the afternoon, improved mobility needed for self cares.) Occupational Therapy Problem List: Detail (1. Decreased activity tolerance needed for safe and Ind self cares. 2. Decreased functional mobility. 3. Decreased Ind with showering and dressing activities. 4. Orthostatic hypotension which is limiting patients functional abilities.) Occupational Therapy Goals: 1. Pt will be Ind with functional mobility needed to perform showering and dressing activities. 2. Pt will demonstrate improved endurance to allow Ind with self cares 3. Pt will be safe and Ind with total body dressing. 4. Pt will be Ind with showering in sitting or standing. Prognosis: Good Occupational Therapy Plan: OT 2-4 times per week to address functional mobility , self cares and activity tolerance to allow safe return home.
[2018-05-01] MEDS: ATORVASTATIN 20 MG TABLET PO SCH (21:58)
[2018-05-02] MEDS: LEVOFLOXACIN 500 MG TABLET PO SCH (06:12)
[2018-05-02] MEDS: MIDODRINE HCL 5 MG TABLET PO SCH ×2 (06:14→10:27)
[2018-05-02] MEDS: NOVOLOG FLEXPEN (INSULIN ASPART) 100 UNITS/ML SQ SCH ×3 (08:48→17:49)
--- NOTE | 2018-05-02 09:55 | Physician Progress Note ---
Subjective - Date Date of Progress Note: 05/02/18 - Admitting Diagnosis Diagnosis: deconditioning related to right hip surgery - Subjective Events since last encounter: 04/30/18 Pt continues to have loose/liquid stool and demanding to be straight cathed with out attempts to urinate. Pt approached about the recommendations from GI to add cholestryramine BID to form stool in an attempt to return to continence and remove rectal tube. Rectal tube placed approx 2 weeks ago related to excoriation from freq stooling. During the first interaction, pt became loud, verbally aggressive and resistant to any and all suggestions to increase tolerance of the cholestryamine. Additionally, per nursing staff, pt is refusing to get up and attempt to urinate. Insisting that he be straight cathed every 6 hours and often req additional procedures. 05/01/18 - Care conference completed with and son at bedside. Nursing reports pt being verbally abusive in the evening and swinging the trapeze at on of the floor nurse when he became frustrated with her requests. Pt educated that verbal or physical violence or aggression has a zero tolerance policy at [facility] and that his recent behavior of yelling, cursing, and being verbally abuse to the staff will not be accepted. Pt verablized understanding of this situation and aware that he will be discharged from rehab if the behavior does not improve. Addressing the stooling issues, pt encouraged to attempt to take 1/4 packet with different mixing fluids, working his way up to 1/2 then full packet. Dietary, present during care meeting, will provider different selections to help pt tolerate the medication. pt and family educated that the tube is temporary and that longer term use can decrease rectal tone, causing longterm incontinence issues. Pt verbalized he did want to return to his baseline health. Urinary retention, Dr Sanchez consulted and instructed pt to start attempting to stand and urinate several times daily in an attempt to urinate on his own. Pt also updated that UA culture returned and is positive for 2 bacteria infections. Starting Levaquin 750mg r/t klebsiella, freq cathing and risk of prostatitis. Pt and family educated about risk vs benefit. At the end of the meeting, pt verbalized understanding and reports he will be more proactive with his own care, attempting to urinate q 2hr while aware. If pt is unable to urinate on his own before d/c, nursing staff to educate pt on self cathing and pt will need to demonstrate ability to self cath. Nursing Care Plan Problem List Activity Intolerance (Swing Bed) Start: 04/18/18 17: 39 Freq: Status: Active Protocol: Created 04/18/18 17:39 MMT (Rec: 04/18/18 17:39 MMT [id number]) Altered Thought Process (Fall Risk) Start: 04/18/18 18: 37 Freq: Status: Active Protocol: Created 04/18/18 18:37 MMT (Rec: 04/18/18 18:37 MMT [id number]) Altered Urinary Elimination Pattern Start: 04/18/18 18: 13 Freq: Status: Active Protocol: Created 04/18/18 18:13 MMT (Rec: 04/18/18 18:13 MMT [id number]) Diarrhea Start: 04/18/18 18: 13 Freq: Status: Active Protocol: Created 04/18/18 18:13 MMT (Rec: 04/18/18 18:13 MMT [id number]) Impaired Mobility (Fall Risk) Start: 04/18/18 18: 37 Freq: Status: Active Protocol: Created 04/18/18 18:37 MMT (Rec: 04/18/18 18:37 MMT [id number]) Impaired Skin Integrity Start: 04/18/18 18: 14 Freq: Status: Active Protocol: Created 04/18/18 18:14 MMT (Rec: 04/18/18 18:14 MMT [id number]) Knowledge Deficit (Swing Bed) Start: 04/18/18 17: 39 Freq: Status: Active Protocol: Created 04/18/18 17:39 MMT (Rec: 04/18/18 17:39 MMT [id number]) Pain (Swing Bed) Start: 04/18/18 17: 39 Freq: Status: Active Protocol: Created 04/18/18 17:39 MMT (Rec: 04/18/18 17:39 MMT [id number]) Risk for Injury (Fall Risk) Start: 04/18/18 18: 37 Freq: Status: Active Protocol: Created 04/18/18 18:37 MMT (Rec: 04/18/18 18:37 MMT [id number]) Edit Status 04/20/18 14:37 SAF (Rec: 04/20/18 14:37 SAF [id number]) Active=>Complete Edit Status 04/20/18 22:13 RCS (Rec: 04/20/18 22:13 RCS [id number]) Complete=>Active Edit Status 04/21/18 07:06 RCS (Rec: 04/21/18 07:06 RCS [id number]) Active=>Complete Edit Status 04/22/18 07:00 RCS (Rec: 04/22/18 07:00 RCS [id number]) Complete=>Active Urinary Retention Start: 04/18/18 18: 13 Freq: Status: Active Protocol: Created 04/18/18 18:13 MMT (Rec: 04/18/18 18:13 MMT [id number]) General - Cognitive Patterns Speech: Normal Thought Process: Intact Thought Content: Normal - Communication Select best description of speech pattern: Clear Speech Ability to express ideas and wants: Understood Understanding verbal content: Understands - Mood and Behavior Patterns Appearance: Disheveled Mood: Normal Attitude: Cooperative Motor Activity: Calm Affect: Appropriate Hallucinations: Denies - Physical Functioning Activity Level: Up as tolerated, Up with assist x1, Up with assist x2 Turning: Self ad cheo ROM Ability: Moves all extremities Assistive Devices: 2 Wheel Walker, Wheel Chair, Hospital Bed Ambulation Ability: Needs Assist Bed Mobility: Independent Transfer Ability: Needs Assist Bathing Ability: Needs Assist Personal Hygiene: Needs Assist Dressing Ability: Needs Assist Eating (Feeding) Ability: Independent Toileting Ability: Dependent Administer Own Medication: Needs Assist - Continence Bowel Pattern: Diarrhea Bladder Pattern: Dribbling, Retention Meds/Allergies - Allergies Allergies Allergy/AdvReac Type Severity Reaction Status Date / Time No Known Drug Allergies Allergy Verified 04/03/18 10:41 - Active Medications Current Medications Acetaminophen (Tylenol 325mg) 650 mg PO Q6H PRN PRN Reason: PAIN - MILD (1-4) Last Admin: 05/01/18 22:27 Dose: 650 mg Hydrocodone Bitart/Acetaminophen ([place] 5mg/325mg) 1 each PO Q6H PRN PRN Reason: PAIN - MOD TO SEVERE (5-10) Apixaban (Eliquis) 2.5 mg PO BID [facility] Last Admin: 05/01/18 21:58 Dose: 2.5 mg Atorvastatin Calcium (Lipitor) 20 mg PO QHS [facility] Last Admin: 05/01/18 21:58 Dose: 20 mg Calamine/Phenol (Calmoseptine Ointment) 3.5 gm TOP ASDIR PRN PRN Reason: RASH Calcium/Vitamin D (Calcium 500+D Tablet) 1 tab PO Q12HR [facility] Last Admin: 05/01/18 21:58 Dose: 1 tab Cholestyramine Resin (Prevalite) 1 pkt PO TID [facility] Last Admin: 05/01/18 21:58 Dose: 1 pkt Ferrous Sulfate (Iron) 325 mg PO DAILY [facility] Last Admin: 05/01/18 10:16 Dose: 325 mg Insulin Aspart (Novolog Flexpen) 1 unit SQ TIDINS [facility]; Protocol Last Admin: 05/02/18 08:48 Dose: Not Given Insulin Detemir (Levemir Flextouch) 30 unit SQ DAILY [facility] Last Admin: 05/01/18 10:09 Dose: 30 unit [facility]: 05/08/18 11:01 Last Admin: 05/02/18 06:12 Dose: 750 mg Midodrine (Midodrine Hcl) 5 mg PO 0700,1100 [facility] Last Admin: 05/02/18 06:14 Dose: 5 mg Ondansetron HCl (Zofran) 4 mg IVP Q6H PRN PRN Reason: NAUSEA Last Admin: 04/20/18 16:54 Dose: 4 mg Ondansetron HCl (Zofran Odt) 4 mg SL Q8H PRN PRN Reason: NAUSEA/VOMITING Last Admin: 04/29/18 17:47 Dose: 4 mg Patient Own Med: Hydrocortisone 1% Ointment 1 each TOP BID [facility] Last Admin: 05/01/18 21:59 Dose: 1 each Potassium Chloride (Klor-Con) 20 meq PO DAILY [facility] Last Admin: 05/01/18 10:17 Dose: 20 meq Tamsulosin HCl (Flomax) 0.4 mg PO DAILY [facility] Last Admin: 05/01/18 10:17 Dose: 0.4 mg Zinc Oxide (Desitin) 10 gm TOP ASDIR PRN PRN Reason: RASH Objective - Vital Signs Vital Signs: Vital Signs - Last 24 Hrs Temp Pulse Resp BP Pulse Ox 05/01/18 20:00 97.7 F 88 16 100/57 97 - General General Appearance: Alert, Oriented x3, Cooperative, No acute distress Limitations: No limitations - Head Head exam: Normocephalic - Eye Eye exam: Normal appearance - ENT ENT exam: Normal exam - Neck Neck exam: Normal inspection - Respiratory Respiratory exam: Normal lung sounds bilaterally - Cardiovascular Cardiovascular Exam: Regular rate, Normal rhythm Peripheral Pulses: 2+: Dorsalis Pedis (R), Dorsalis Pedis (L), 3+: Radial (R), Radial (L) - GI/Abdominal GI/Abdominal exam: Soft, Normal bowel sounds, Other (rectal tube in place) - Rectal Rectal exam: Other (skin intact, no maceration present) - exam: Normal inspection - Extremities Extremities exam: Other (slight redness and warmth to posterior RLE, no open areas.) - Neurological Neurological exam: Alert, Oriented X3 - Psychiatric Psychiatric exam: Normal affect, Normal mood - Skin Skin exam: Abrasion (scabbed areas and flaky skin to RLE, slight redness and warmth to posterior RLE), Other (surgical incision well healed, no s/sx of infection) H&P Results - Labs Result Diagrams: 05/01/18 06:47 05/01/18 06:47 Labs Last 24 Hours: Laboratory Results - last 24 hr 04/30/18 04/30/18 04/30/18 07:30 11:30 17:00 POC Glucose Cancelled Cancelled Cancelled 05/01/18 05/01/18 05/01/18 11:30 11:50 17:00 POC Glucose Cancelled 344 H Cancelled 05/02/18 05/02/18 05/02/18 07:30 11:30 17:00 POC Glucose Cancelled Cancelled Cancelled 05/03/18 05/03/18 05/03/18 07:30 11:30 17:00 POC Glucose Cancelled Cancelled Cancelled 05/04/18 05/04/18 05/04/18 07:30 11:30 17:00 POC Glucose Cancelled Cancelled Cancelled 05/05/18 05/05/18 05/05/18 07:30 11:30 17:00 POC Glucose Cancelled Cancelled Cancelled 05/06/18 07:30 POC Glucose Cancelled Discharge Potential - Discharge Needs Community Services Used Prior to Admission: None Patient Discharge Plan Description: Return Home, Visiting Nurse Plan - Swing Bed Certification Initial Certification Due: 04/18/18 14 Day Re-Cert Due: 05/02/18 44 Day Re-Cert Due: 06/01/18 74 Day Re-Cert Due: 07/01/18 - Detailed Diagnosis and Plan (1) C. difficile diarrhea Current Visit: Yes Status: Acute Base Code: A04.72 - ENTEROCOLITIS D/T CLOSTRIDIUM DIFFICILE, NOT SPCF RECUR Comment: 04/19/18: -Stool cultures positive for c-diff on admission -Frequent loose stools continued, fecal management system in place -Vanco 125mg course completed on 04/19/18 -Contact isolation -Probiotic daily -Encourage increased PO fluid intake 05/01/18 -pt encouraged to start small amt of cholestyramine to help form stool -f/u GI for cscope after d/c (2) DVT prophylaxis Current Visit: Yes Status: Acute Base Code: [id number] - Comment: 04/25/18: - On Eliquis 2.5mg BID started at [facility] [place]. - On review of inpatient chart there is suggestion of Laverne-Rivera tear due to constant vomiting and recommendation was for the patient to be on an PPI and Carafate. Anticogulation was resumed but no instruction for length of anticoagulation therapy was stated by the primary team. - Considering the patient's decreased ambulation due to hip fracture and now rectal tube placement and naqvi prophylactic anticoagulation will continue while admitted. 05/01/18 -pt tolerating PO intact, continue Eliquis 2.5mg BID r/t inactivity and recent ortho surgery (3) Elevated WBC count Current Visit: Yes Status: Acute Base Code: D72.829 - ELEVATED WHITE BLOOD CELL COUNT, UNSPECIFIED Comment: 04/22/18: -WBC trending up -CXR on 04/21/18 negative -U/A on 04/22/18 negative -Surgical incision healing well, no s/sx of infection -Some erythema and warmth to posterior RLE, holding off on starting any empirical antibiotics d/t recent c.diff infection. 05/02/18 -WBC 17, UA positive, starting levaquin 750mg QD -pt to f/u with ortho for post op (4) Full code status Current Visit: Yes Status: Acute Base Code: Z78.9 - OTHER SPECIFIED HEALTH STATUS Comment: 05/02/18: -Full code status
[2018-05-02] MEDS: CALCIUM CARB/VITAMIN D 500MG/200IU PO SCH (10:27)
[2018-05-02] MEDS: APIXABAN 2.5MG TABLET PO SCH (10:27)
[2018-05-02] MEDS: CHOLESTYRAMINE/ASPARTANE PKT PO SCH ×2 (10:27→16:41)
[2018-05-02] MEDS: TAMSULOSIN HCL 0.4 MG CAP.ER.24H PO SCH (10:27)
[2018-05-02] MEDS: POTASSIUM CHLORIDE 20 MEQ TABLET PO SCH (10:27)
[2018-05-02] MEDS: FERROUS SULFATE 325 MG TAB PO SCH (10:27)
[2018-05-02] MEDS: BIFIDOBACTERIUM INFANTIS 4 MG CAPSULE PO SCH (10:27)
[2018-05-02] MEDS: LEVEMIR FLEXTOUCH 100 UNIT/ML INSULIN PEN SQ SCH (10:27)
--- NOTE | 2018-05-02 10:56 | Physical Therapy Tx Note ---
Physical Therapy Tx Note - Treatment Note Tolerated: Good Total Time Spent With Patient: 20 Physical Therapy Tx Note: Detail (Patient was sidelying in bed upon MATERIAL LISTER arrival. Patient states he's not feeling well today. Patient states he's dizzy when he sits, and buttock hurts. Patient declined sitting up and ambulating this morning. Patient performed the following exercises x10-15 reps each: quad sets, ankle pumps, heel slides, hamstring sets, isometric hip abduction, and isometric hip adduction, and SLR x5 reps. Patient declined further exercises. Patient displays fatigue with SLR, hamstring sets, and isometric hip abduction. Patient reports right hip sore after treatment. Patient was left supine in bed with call light within reach.) Physical Therapy Problem List: Detail (1)Decreased R LE strength 2) Orthostatic Hypotension 3) Decreased ability to complete prolonged physical activity 4) Impaired ambulation secondary to s/p R hip fracture) Physical Therapy Goals: 1) The patient will be independent with bed mobility without use of trapeze. (Goal Met). 2) The patient will ambulate with appropriate assistive device PWB on the R LE with supervision for safety only. ( Goal Met- WBAT on the R). 3) The patient will ambulate on stairs using proper technique with supervision for safety. 4) The patient will tolerate 30 minutes of physical activity with one rest period. (Goal Met). 5) The patient will be independent with all transfers including car transfer. 6) Increase R LE strength 1/3 muscle grade to increase stability with gait. Prognosis: Good Physical Therapy Plan: PT 1-2 times a day M-F for gait training, transfer training, bed mobility and LE strengthening exercises.
[2018-05-02] MEDS: ONDANSETRON 4 MG ODT TABLET SL PRN (11:27)
--- NOTE | 2018-05-02 13:41 | Physical Therapy Tx Note ---
Physical Therapy Tx Note - Treatment Note Physical Therapy Tx Note: Detail (Patient was performing bed mobility while nursing was changing linen and performing hygiene prior to COMPLETION MANAGER arrival. Patient states still not feeling well, dizzy upon sitting. Patient states he vomited earlier today. Patient declined exercises in bed, and sitting. Patient was left supine in bed with call light within reach.) Physical Therapy Problem List: Detail (1)Decreased R LE strength 2) Orthostatic Hypotension 3) Decreased ability to complete prolonged physical activity 4) Impaired ambulation secondary to s/p R hip fracture) Physical Therapy Goals: 1) The patient will be independent with bed mobility without use of trapeze. (Goal Met). 2) The patient will ambulate with appropriate assistive device PWB on the R LE with supervision for safety only. ( Goal Met- WBAT on the R). 3) The patient will ambulate on stairs using proper technique with supervision for safety. 4) The patient will tolerate 30 minutes of physical activity with one rest period. (Goal Met). 5) The patient will be independent with all transfers including car transfer. 6) Increase R LE strength 1/3 muscle grade to increase stability with gait. Physical Therapy Plan: PT 1-2 times a day M-F for gait training, transfer training, bed mobility and LE strengthening exercises.
--- NOTE | 2018-05-02 16:10 | Swing Bed Certification/Recert ---
Initial Certification Due: 04/18/18 14 Day Re-Cert Due: 05/02/18 44 Day Re-Cert Due: 06/01/18 74 Day Re-Cert Due: 07/01/18 CERTIFICATION 3 CERTIFICATION OF PATIENT ADMISSION Required at time of admission. Due: 04/18/18 I certify that SNF services are required to be given on an inpatient basis because of the above named patient's need for group home care on a continuing basis for the condition(s) for which he/she was receiving inpatient hospital services prior to his/her transfer to the SNF. The patient's current needs for skilled care includes: PT, OT, skilled nurse care for straight catheterizing, and skilled pericare. Anna Romero, N.P. 05/02/18
--- NOTE | 2018-05-02 17:11 | Physician Progress Note ---
Subjective - Date Date of Progress Note: 05/02/18 - Admitting Diagnosis Diagnosis: deconditioning related to right hip surgery - Subjective Events since last encounter: pt has not tolerated of PO intake, large amount of stool volume out. Pt is vomiting, weak, pale, hypotensive and appears dry. GI has consulted with the pt and did not recommend repeating PO vanco tx. transfer to [facility] Plan Problem List Activity Intolerance (Swing Bed) Start: 04/18/18 17: 39 Freq: Status: Active Protocol: Created 04/18/18 17:39 MMT (Rec: 04/18/18 17:39 MMT [id number]) Altered Thought Process (Fall Risk) Start: 04/18/18 18: 37 Freq: Status: Active Protocol: Created 04/18/18 18:37 MMT (Rec: 04/18/18 18:37 MMT [id number]) Altered Urinary Elimination Pattern Start: 04/18/18 18: 13 Freq: Status: Active Protocol: Created 04/18/18 18:13 MMT (Rec: 04/18/18 18:13 MMT [id number]) Diarrhea Start: 04/18/18 18: 13 Freq: Status: Active Protocol: Created 04/18/18 18:13 MMT (Rec: 04/18/18 18:13 MMT [id number]) Impaired Mobility (Fall Risk) Start: 04/18/18 18: 37 Freq: Status: Active Protocol: Created 04/18/18 18:37 MMT (Rec: 04/18/18 18:37 MMT [id number]) Impaired Skin Integrity Start: 04/18/18 18: 14 Freq: Status: Active Protocol: Created 04/18/18 18:14 MMT (Rec: 04/18/18 18:14 MMT [id number]) Knowledge Deficit (Swing Bed) Start: 04/18/18 17: 39 Freq: Status: Active Protocol: Created 04/18/18 17:39 MMT (Rec: 04/18/18 17:39 MMT [id number]) Pain (Swing Bed) Start: 04/18/18 17: 39 Freq: Status: Active Protocol: Created 04/18/18 17:39 MMT (Rec: 04/18/18 17:39 MMT [id number]) Risk for Injury (Fall Risk) Start: 04/18/18 18: 37 Freq: Status: Active Protocol: Created 04/18/18 18:37 MMT (Rec: 04/18/18 18:37 MMT [id number]) Edit Status 04/20/18 14:37 SAF (Rec: 04/20/18 14:37 SAF [id number]) Active=>Complete Edit Status 04/20/18 22:13 RCS (Rec: 04/20/18 22:13 RCS [id number]) Complete=>Active Edit Status 04/21/18 07:06 RCS (Rec: 04/21/18 07:06 RCS [id number]) Active=>Complete Edit Status 04/22/18 07:00 RCS (Rec: 04/22/18 07:00 RCS [id number]) Complete=>Active Urinary Retention Start: 04/18/18 18: 13 Freq: Status: Active Protocol: Created 04/18/18 18:13 MMT (Rec: 04/18/18 18:13 MMT [id number]) Subjective: Rectal bag not longer in place, no replacement available. pt beginning to have skin excoriation General - Cognitive Patterns Speech: Normal Thought Process: Intact Thought Content: Normal - Communication Select best description of speech pattern: Clear Speech Ability to express ideas and wants: Understood Understanding verbal content: Understands - Mood and Behavior Patterns Appearance: Disheveled Mood: Normal Attitude: Cooperative Motor Activity: Calm Affect: Appropriate Hallucinations: Denies - Physical Functioning Activity Level: Up with assist x1 Turning: Self ad cheo ROM Ability: Moves all extremities Assistive Devices: 2 Wheel Walker Ambulation Ability: Needs Assist Bed Mobility: Independent Transfer Ability: Needs Assist Bathing Ability: Needs Assist Personal Hygiene: Needs Assist Dressing Ability: Needs Assist Eating (Feeding) Ability: Independent Toileting Ability: Dependent Administer Own Medication: Needs Assist - Continence Bowel Pattern: Diarrhea Bladder Pattern: Dribbling, Retention Meds/Allergies - Allergies Allergies Allergy/AdvReac Type Severity Reaction Status Date / Time No Known Drug Allergies Allergy Verified 04/03/18 10:41 - Active Medications Current Medications Acetaminophen (Tylenol 325mg) 650 mg PO Q6H PRN PRN Reason: PAIN - MILD (1-4) Last Admin: 05/01/18 22:27 Dose: 650 mg Hydrocodone Bitart/Acetaminophen ([place] 5mg/325mg) 1 each PO Q6H PRN PRN Reason: PAIN - MOD TO SEVERE (5-10) Apixaban (Eliquis) 2.5 mg PO BID [facility] Last Admin: 05/02/18 10:27 Dose: 2.5 mg Atorvastatin Calcium (Lipitor) 20 mg PO QHS [facility] Last Admin: 05/01/18 21:58 Dose: 20 mg Calamine/Phenol (Calmoseptine Ointment) 3.5 gm TOP ASDIR PRN PRN Reason: RASH Calcium/Vitamin D (Calcium 500+D Tablet) 1 tab PO Q12HR [facility] Last Admin: 05/02/18 10:27 Dose: 1 tab Cholestyramine Resin (Prevalite) 1 pkt PO TID [facility] Last Admin: 05/02/18 16:41 Dose: Not Given Ferrous Sulfate (Iron) 325 mg PO DAILY [facility] Last Admin: 05/02/18 10:27 Dose: 325 mg Insulin Aspart (Novolog Flexpen) 1 unit SQ TIDINS [facility]; Protocol Last Admin: 05/02/18 12:36 Dose: 6 unit Insulin Detemir (Levemir Flextouch) 30 unit SQ DAILY [facility] Last Admin: 05/02/18 10:27 Dose: 30 unit [facility]quin [facility] Stop: 05/08/18 11:01 Last Admin: 05/02/18 06:12 Dose: 750 mg Midodrine (Midodrine Hcl) 5 mg PO 0700,1100 [facility] Last Admin: 05/02/18 10:27 Dose: 5 mg Ondansetron HCl (Zofran) 4 mg IVP Q6H PRN PRN Reason: NAUSEA Last Admin: 04/20/18 16:54 Dose: 4 mg Ondansetron HCl (Zofran Odt) 4 mg SL Q8H PRN PRN Reason: NAUSEA/VOMITING Last Admin: 05/02/18 11:27 Dose: 4 mg Patient Own Med: Hydrocortisone 1% Ointment 1 each TOP BID [facility] Last Admin: 05/01/18 21:59 Dose: 1 each Potassium Chloride (Klor-Con) 20 meq PO DAILY [facility] Last Admin: 05/02/18 10:27 Dose: 20 meq Tamsulosin HCl (Flomax) 0.4 mg PO DAILY [facility] Last Admin: 05/02/18 10:27 Dose: 0.4 mg Zinc Oxide (Desitin) 10 gm TOP ASDIR PRN PRN Reason: RASH Last Admin: 05/02/18 15:46 Dose: 28.35 gm Objective - Vital Signs Vital Signs: Vital Signs - Last 24 Hrs Temp Pulse Resp BP BP BP Pulse Ox 05/02/18 10:19 97.7 F 100/57 05/02/18 08:00 98.1 F 83 18 128/68 97 05/01/18 20:00 97.7 F 88 16 100/57 97 H&P Results - Labs Result Diagrams: 05/01/18 06:47 05/01/18 06:47 Labs Last 24 Hours: Laboratory Results - last 24 hr 05/02/18 07:30 POC Glucose 203 H Discharge Potential - Discharge Needs Community Services Used Prior to Admission: None Patient Discharge Plan Description: Return Home, Visiting Nurse Plan - Swing Bed Certification Initial Certification Due: 04/18/18 14 Day Re-Cert Due: 05/02/18 44 Day Re-Cert Due: 06/01/18 74 Day Re-Cert Due: 07/01/18 - Detailed Diagnosis and Plan (1) C. difficile diarrhea Current Visit: Yes Status: Acute Base Code: A04.72 - ENTEROCOLITIS D/T CLOSTRIDIUM DIFFICILE, NOT SPCF RECUR Comment: 04/19/18: -Stool cultures positive for c-diff on admission -Frequent loose stools continued, fecal management system in place -Vanco 125mg course completed on 04/19/18 -Contact isolation -Probiotic daily -Encourage increased PO fluid intake 05/01/18 -pt encouraged to start small amt of cholestyramine to help form stool -f/u GI for cscope after d/c (2) DVT prophylaxis Current Visit: Yes Status: Acute Base Code: NDZ9310 - Comment: 04/25/18: - On Eliquis 2.5mg BID started at [facility] [place]. - On review of inpatient chart there is suggestion of Laverne-Rivera tear due to constant vomiting and recommendation was for the patient to be on an PPI and Carafate. Anticogulation was resumed but no instruction for length of anticoagulation therapy was stated by the primary team. - Considering the patient's decreased ambulation due to hip fracture and now rectal tube placement and naqvi prophylactic anticoagulation will continue while admitted. 05/01/18 -pt tolerating PO intact, continue Eliquis 2.5mg BID r/t inactivity and recent ortho surgery (3) Elevated WBC count Current Visit: Yes Status: Acute Base Code: D72.829 - ELEVATED WHITE BLOOD CELL COUNT, UNSPECIFIED Comment: 04/22/18: -WBC trending up -CXR on 04/21/18 negative -U/A on 04/22/18 negative -Surgical incision healing well, no s/sx of infection -Some erythema and warmth to posterior RLE, holding off on starting any empirical antibiotics d/t recent c.diff infection. 05/02/18 -WBC 17, UA positive, starting levaquin 750mg QD -pt to f/u with ortho for post op (4) Full code status Current Visit: Yes Status: Acute Base Code: Z78.9 - OTHER SPECIFIED HEALTH STATUS Comment: 05/02/18: -Full code status
--- NOTE | 2018-05-02 17:50 | Discharge Summary ---
Providers Discharge Summary Date: 05/02/18 Date of admission: 04/18/18 17:54 Expected Date of Discharge: 05/02/18 Attending physician: TRIP LAGUNA Primary care physician: SHAUNA ALEX M.D. Consults: Consult Orders 04/25/18 09:31 Consult NOW Consulting Provider: DOMENIC KENYON Physician Instructions: Reason For Exam: Persistent diarrhea Physical Exam - Vital Signs Vital Signs: Vital Signs - Last 24 Hrs Temp Pulse Resp BP BP BP Pulse Ox 05/02/18 10:19 97.7 F 100/57 05/02/18 08:00 98.1 F 83 18 128/68 97 05/01/18 20:00 97.7 F 88 16 100/57 97 - General General Appearance: Alert, Oriented x3, Cooperative, Mild distress Limitations: No limitations - Head Head exam: Normocephalic - Eye Eye exam: Normal appearance - ENT ENT exam: Other (dry MM) Mouth exam: Other (tongue furlowed) - Neck Neck exam: Normal inspection - Respiratory Respiratory exam: Normal lung sounds bilaterally - Cardiovascular Cardiovascular Exam: Regular rate, Normal rhythm Peripheral Pulses: 2+: Dorsalis Pedis (R), Dorsalis Pedis (L), 3+: Radial (R), Radial (L) - GI/Abdominal GI/Abdominal exam: Soft, Normal bowel sounds, Other (rectal tube in place) - Rectal Rectal exam: Other (skin intact, no maceration present) - exam: Normal inspection - Extremities Extremities exam: Other (slight redness and warmth to posterior RLE, no open areas.) - Neurological Neurological exam: Alert, Oriented X3 - Psychiatric Psychiatric exam: Normal affect, Normal mood - Skin Skin exam: Abrasion (scabbed areas and flaky skin to RLE, slight redness and warmth to posterior RLE), Other (surgical incision well healed, no s/sx of infection) Hospitalization - Hospitalization Admission Diagnosis: deconditioning related to right hip surgery - Problem List (1) C. difficile diarrhea Current Visit: Yes Status: Acute Base Code: A04.72 - ENTEROCOLITIS D/T CLOSTRIDIUM DIFFICILE, NOT SPCF RECUR Comment: 04/19/18: -Stool cultures positive for c-diff on admission -Frequent loose stools continued, fecal management system in place -Vanco 125mg course completed on 04/19/18 -Contact isolation -Probiotic daily -Encourage increased PO fluid intake 05/01/18 -pt encouraged to start small amt of cholestyramine to help form stool -f/u GI for cscope after d/c (2) DVT prophylaxis Current Visit: Yes Status: Acute Base Code: EGL2701 - Comment: 04/25/18: - On Eliquis 2.5mg BID started at [facility]. - On review of inpatient chart there is suggestion of Laverne-Zepeda tear due to constant vomiting and recommendation was for the patient to be on an PPI and Carafate. Anticogulation was resumed but no instruction for length of anticoagulation therapy was stated by the primary team. - Considering the patient's decreased ambulation due to hip fracture and now rectal tube placement and naqvi prophylactic anticoagulation will continue while admitted. 05/01/18 -pt tolerating PO intact, continue Eliquis 2.5mg BID r/t inactivity and recent ortho surgery (3) Elevated WBC count Current Visit: Yes Status: Acute Base Code: D72.829 - ELEVATED WHITE BLOOD CELL COUNT, UNSPECIFIED Comment: 04/22/18: -WBC trending up -CXR on 04/21/18 negative -U/A on 04/22/18 negative -Surgical incision healing well, no s/sx of infection -Some erythema and warmth to posterior RLE, holding off on starting any empirical antibiotics d/t recent c.diff infection. 05/02/18 -WBC 17, UA positive, starting levaquin 750mg QD -pt to f/u with ortho for post op (4) Full code status Current Visit: Yes Status: Acute Base Code: Z78.9 - OTHER SPECIFIED HEALTH STATUS Comment: 05/02/18: -Full code status (5) S/P right hip fracture Current Visit: Yes Status: Acute Base Code: Z87.81 - PERSONAL HISTORY OF ( HEALED) TRAUMATIC FRACTURE Comment: 04/25/18: - Mechanical fall on 04/03 causing right intertrochanteric femur hip fracture. - S/P repair 04/04 with a right cephalo-medullary nail placed - [place] 5/325 q6h prn pain, Tylenol as needed for mild pain - Surgical ok removed on 04/22 in consultation with Orthopedic surgery. - Hip xray 04/22: improved fracture alignment. - PT/OTwith goals of improving function, gait, mobilty. 05/02/18 -incision well approximated, no s/s infection, no pain with palpation -no redness, warmth or drainage noted -still needs ortho f/u (6) Skin maceration Current Visit: Yes Status: Acute Base Code: L98.8 - OTH DISRD OF THE SKIN AND SUBCUTANEOUS TISSUE Comment: 04/25/18: - Skin maceration improving since placement of rectal tube. - Will continue with Hydrocortisone BID and Calmoseptine. - Q2 bed turns and repositioning. - Keep rectal tube in place until diarrhea begins to resolves. 05/02/18 -second rectal tube has fallen out, no replacement available -skin is excoriated, nursing to apply zinc for comfort (7) Urinary retention Current Visit: Yes Status: Acute Base Code: R33.9 - RETENTION OF URINE, UNSPECIFIED Comment: 04/22/18: -Trial naqvi catheter removal -Bladder scan if unable to void after 8 hours -Orders to straight cath for bladder scan volumes greater than 400ml -Patient had urinary retention post-op -Discharged with naqvi catheter, started on Flomax, and instructed to follow-up with urology in 5-7 days for a voiding trial -Flomax stopped d/t syncope 05/02/18 -pt still not able to urinate on his own, attempting every 2 hours with no improvement -holding all flomax r/t hypotension -ISC q 6 req still (8) Weakness Current Visit: Yes Status: Acute Base Code: R53.1 - WEAKNESS Comment: 04/22: - PT/OT - Continue Midodrine 5 mg BID for orthostatic hypotension 05/02/18 -pt is weak, dehyrated and hypotensive -ABX started for UTI but pt has N/V with poor PO intake -midodrine 5mg BID not helpful enough to decrease orthostatic hypotension - Hospitalization Course Disposition: Acute Care Hospital Transfer Hospital Course: Royer Albright is a 72 y.o. male who had a slip and fall which resulted in a right intertrochanteric femur fracture. He underwent a right cephalo-medullary nailing on 04/04/[address] Perez at [facility]. While there, he was evaluated by the GI team d/t hematemesis which was presumed to be d/t a laverne zepeda tear. GI felt that he would be safe to start Eliquis 2.5mg BID for anticoagulation post surgery. Medical records from [facility] also noted that Eliquis was held for a dose d/t bleeding from his surgical incision prior to discharge. Hgb on discharge from [facility] on 04/10/18 was 7.8. He admitted to [facility] for participation in the Swing [facility] program on 04/10/18 to participate in PT/OT and nursing services. He presented with a naqvi catheter d/ t urinary retention post surgery. He was karissa found to be positive for C. diff infection. On 04/14/18 he had a syncopal episode while using the commode. He was then discharged from the Swing Bed program and admitted as an Inpatient at [facility]. Cardiology was consulted. ECHO indicated preserved LV function with no signficant valve problems. It was recommended that no further cardiac work up be done at this time and that pt should f/u as an outpatient should the dizziness and syncope continue to be a problem. Iron supplementation was started for low hemoglobin. BUN/Creatinine and electrolytes were slightly abnormal likely d/t constant stooling r/t c.diff. Additionally, pt continued to have symptomatic orthostatic hypotension. IV fluids were administered to correct abnormalities and Midodrine was trialed for orthostatic hypotension. Pt also developed skin breakdown d/t maceration from constant incontinent stooling which required skin treatments by nursing staff and placement of a rectal tube to prevent further skin breakdown. He was also seen by Urology and it was recommended that the naqvi catheter come out once he was able to ambulate. On 04/18/18. pt was determined stable to return to Swing Bed program. PMHx includes IDDM, HTN, High cholesterol PCP: Dr. Alex 04/19/18: Today, nursing staff reports that he ambulated with therapy and although he continues to have orthostatic hypotension, he is not dropping as significantly as before. Hgb has increased from 8.3 to 8.9 and continues to have no signs of bleeding. He denies pain or nausea. States that the rectal tube is tolerable and that his bottom is not as sore as it was from the skin breakdown. Reports that he is eating and drinking well. Procedures: Imaging and X-Rays 04/21/18 12:46 CXR [CHEST 1 VIEW] [RAD] Stat 04/23/18 14:29 HIP,UNILAT, 2-3 VIEW RIGHT [RAD] Routine Abnormal Labs: Abnormal Lab Results 04/19/18 04/19/18 04/19/18 Range/Units 06:24 06:24 17:00 WBC 12.8 H (4.2-12.2) K/uL RBC 3.24 L (4.40-5.70) M/uL Hgb 8.9 L (14.0-18.0) gm/dl Hct 28.6 L (42.0-52.0) % MCHC 31.1 L (32-36) g/dl Plt Count 636 H (130-400) K/uL Lymphocytes % 13.9 L (16-45) % Lymphocytes (16-45) % Sodium (136-145) mmol/L Potassium (3.4-4.5) mmol/L BUN (8-23) mg/dL Creatinine (0.7-1.2) mg/dL POC Glucose 207 H (70-110) mg/dL Random Glucose 113 H (74-109) mg/dL Calcium 8.6 L (8.8-10.2) mg/dL Urine Protein (NEGATIVE) Urine Blood (NEGATIVE) Urine Nitrite (NEGATIVE) Ur Leukocyte Esterase (NEGATIVE) 04/20/18 04/20/18 04/20/18 Range/Units 10:00 11:50 17:00 WBC (4.2-12.2) K/uL RBC (4.40-5.70) M/uL Hgb (14.0-18.0) gm/dl Hct (42.0-52.0) % MCHC (32-36) g/dl Plt Count (130-400) K/uL Lymphocytes % (16-45) % Lymphocytes (16-45) % Sodium (136-145) mmol/L Potassium (3.4-4.5) mmol/L BUN (8-23) mg/dL Creatinine (0.7-1.2) mg/dL POC Glucose 207 H 167 H 202 H (70-110) mg/dL Random Glucose (74-109) mg/dL Calcium (8.8-10.2) mg/dL Urine Protein (NEGATIVE) Urine Blood (NEGATIVE) Urine Nitrite (NEGATIVE) Ur Leukocyte Esterase (NEGATIVE) 04/21/18 04/21/1804/21/19 Range/Units 07:11 11:30 11:30 WBC 13.1 H (4.2-12.2) K/uL RBC 3.30 L (4.40-5.70) M/uL Hgb 9.2 L (14.0-18.0) gm/dl Hct 29.2 L (42.0-52.0) % MCHC 31.5 L (32-36) g/dl Plt Count 645 H (130-400) K/uL Lymphocytes % (16-45) % Lymphocytes 11.0 L (16-45) % Sodium (136-145) mmol/L Potassium 4.6 H (3.4-4.5) mmol/L BUN 27 H (8-23) mg/dL Creatinine (0.7-1.2) mg/dL POC Glucose 195 H (70-110) mg/dL Random Glucose 201 H (74-109) mg/dL Calcium 8.6 L (8.8-10.2) mg/dL Urine Protein (NEGATIVE) Urine Blood (NEGATIVE) Urine Nitrite (NEGATIVE) Ur Leukocyte Esterase (NEGATIVE) 04/21/18 04/21/18 04/22/18 Range/Units 11:30 17:00 06:40 WBC 14.5 H (4.2-12.2) K/uL RBC 3.38 L (4.40-5.70) M/uL Hgb 9.2 L (14.0-18.0) gm/dl Hct 30.1 L (42.0-52.0) % MCHC 30.6 L (32-36) g/dl Plt Count 634 H (130-400) K/uL Lymphocytes % 12.0 L (16-45) % Lymphocytes (16-45) % Sodium (136-145) mmol/L Potassium (3.4-4.5) mmol/L BUN (8-23) mg/dL Creatinine (0.7-1.2) mg/dL POC Glucose 206 H 165 H (70-110) mg/dL Random Glucose (74-109) mg/dL Calcium (8.8-10.2) mg/dL Urine Protein (NEGATIVE) Urine Blood (NEGATIVE) Urine Nitrite (NEGATIVE) Ur Leukocyte Esterase (NEGATIVE) 04/22/18 04/22/18 04/22/18 Range/Units 06:40 10:45 16:29 WBC (4.2-12.2) K/uL RBC (4.40-5.70) M/uL Hgb (14.0-18.0) gm/dl Hct (42.0-52.0) % MCHC (32-36) g/dl Plt Count (130-400) K/uL Lymphocytes % (16-45) % Lymphocytes (16-45) % Sodium (136-145) mmol/L Potassium 4.6 H (3.4-4.5) mmol/L BUN 28 H (8-23) mg/dL Creatinine (0.7-1.2) mg/dL POC Glucose 127 H (70-110) mg/dL Random Glucose (74-109) mg/dL Calcium (8.8-10.2) mg/dL Urine Protein Trace H (NEGATIVE) Urine Blood (NEGATIVE) Urine Nitrite (NEGATIVE) Ur Leukocyte Esterase Trace H (NEGATIVE) 04/22/18 04/23/18 04/23/18 Range/Units 16:49 11:43 17:00 WBC (4.2-12.2) K/uL RBC (4.40-5.70) M/uL Hgb (14.0-18.0) gm/dl Hct (42.0-52.0) % MCHC (32-36) g/dl Plt Count (130-400) K/uL Lymphocytes % (16-45) % Lymphocytes (16-45) % Sodium (136-145) mmol/L Potassium (3.4-4.5) mmol/L BUN (8-23) mg/dL Creatinine (0.7-1.2) mg/dL POC Glucose 174 H 128 H 147 H (70-110) mg/dL Random Glucose (74-109) mg/dL Calcium (8.8-10.2) mg/dL Urine Protein (NEGATIVE) Urine Blood (NEGATIVE) Urine Nitrite (NEGATIVE) Ur Leukocyte Esterase (NEGATIVE) 04/24/18 04/24/18 04/24/18 Range/Units 07:30 11:41 17:21 WBC (4.2-12.2) K/uL RBC (4.40-5.70) M/uL Hgb (14.0-18.0) gm/dl Hct (42.0-52.0) % MCHC (32-36) g/dl Plt Count (130-400) K/uL Lymphocytes % (16-45) % Lymphocytes (16-45) % Sodium (136-145) mmol/L Potassium (3.4-4.5) mmol/L BUN (8-23) mg/dL Creatinine (0.7-1.2) mg/dL POC Glucose 119 H 168 H 187 H (70-110) mg/dL Random Glucose (74-109) mg/dL Calcium (8.8-10.2) mg/dL Urine Protein (NEGATIVE) Urine Blood (NEGATIVE) Urine Nitrite (NEGATIVE) Ur Leukocyte Esterase (NEGATIVE) 04/25/18 04/25/18 04/26/18 Range/Units 11:47 17:00 07:39 WBC (4.2-12.2) K/uL RBC (4.40-5.70) M/uL Hgb (14.0-18.0) gm/dl Hct (42.0-52.0) % MCHC (32-36) g/dl Plt Count (130-400) K/uL Lymphocytes % (16-45) % Lymphocytes (16-45) % Sodium (136-145) mmol/L Potassium (3.4-4.5) mmol/L BUN (8-23) mg/dL Creatinine (0.7-1.2) mg/dL POC Glucose 203 H 122 H 177 H (70-110) mg/dL Random Glucose (74-109) mg/dL Calcium (8.8-10.2) mg/dL Urine Protein (NEGATIVE) Urine Blood (NEGATIVE) Urine Nitrite (NEGATIVE) Ur Leukocyte Esterase (NEGATIVE) 04/26/18 04/27/18 04/27/18 Range/Units 11:26 07:25 17:00 WBC (4.2-12.2) K/uL RBC (4.40-5.70) M/uL Hgb (14.0-18.0) gm/dl Hct (42.0-52.0) % MCHC (32-36) g/dl Plt Count (130-400) K/uL Lymphocytes % (16-45) % Lymphocytes (16-45) % Sodium (136-145) mmol/L Potassium (3.4-4.5) mmol/L BUN (8-23) mg/dL Creatinine (0.7-1.2) mg/dL POC Glucose 257 H 165 H 275 H (70-110) mg/dL Random Glucose (74-109) mg/dL Calcium (8.8-10.2) mg/dL Urine Protein (NEGATIVE) Urine Blood (NEGATIVE) Urine Nitrite (NEGATIVE) Ur Leukocyte Esterase (NEGATIVE) 04/27/18 04/28/18 04/28/18 Range/Units Unknown 07:30 11:30 WBC (4.2-12.2) K/uL RBC (4.40-5.70) M/uL Hgb (14.0-18.0) gm/dl Hct (42.0-52.0) % MCHC (32-36) g/dl Plt Count (130-400) K/uL Lymphocytes % (16-45) % Lymphocytes (16-45) % Sodium (136-145) mmol/L Potassium (3.4-4.5) mmol/L BUN (8-23) mg/dL Creatinine (0.7-1.2) mg/dL POC Glucose 231 H 293 H (70-110) mg/dL Random Glucose (74-109) mg/dL Calcium (8.8-10.2) mg/dL Urine Protein 30 mg/dl H (NEGATIVE) Urine Blood Small H (NEGATIVE) Urine Nitrite Positive H (NEGATIVE) Ur Leukocyte Esterase Small H (NEGATIVE) 04/28/18 04/28/18 04/29/18 Range/Units 11:45 17:09 07:30 WBC (4.2-12.2) K/uL RBC (4.40-5.70) M/uL Hgb (14.0-18.0) gm/dl Hct (42.0-52.0) % MCHC (32-36) g/dl Plt Count (130-400) K/uL Lymphocytes % (16-45) % Lymphocytes (16-45) % Sodium (136-145) mmol/L Potassium (3.4-4.5) mmol/L BUN (8-23) mg/dL Creatinine (0.7-1.2) mg/dL POC Glucose 293 H 225 H 275 H (70-110) mg/dL Random Glucose (74-109) mg/dL Calcium (8.8-10.2) mg/dL Urine Protein (NEGATIVE) Urine Blood (NEGATIVE) Urine Nitrite (NEGATIVE) Ur Leukocyte Esterase (NEGATIVE) 04/29/18 04/29/18 04/29/18 Range/Units 07:50 11:30 13:31 WBC (4.2-12.2) K/uL RBC (4.40-5.70) M/uL Hgb (14.0-18.0) gm/dl Hct (42.0-52.0) % MCHC (32-36) g/dl Plt Count (130-400) K/uL Lymphocytes % (16-45) % Lymphocytes (16-45) % Sodium (136-145) mmol/L Potassium (3.4-4.5) mmol/L BUN (8-23) mg/dL Creatinine (0.7-1.2) mg/dL POC Glucose 213 H 275 H 272 H (70-110) mg/dL Random Glucose (74-109) mg/dL Calcium (8.8-10.2) mg/dL Urine Protein (NEGATIVE) Urine Blood (NEGATIVE) Urine Nitrite (NEGATIVE) Ur Leukocyte Esterase (NEGATIVE) 04/29/18 05/01/18 05/01/18 Range/Units 17:00 06:47 06:47 WBC 17.6 H (4.2-12.2) K/uL RBC 3.27 L (4.40-5.70) M/uL Hgb 8.9 L (14.0-18.0) gm/dl Hct 28.5 L (42.0-52.0) % MCHC 31.2 L (32-36) g/dl Plt Count 486 H (130-400) K/uL Lymphocytes % (16-45) % Lymphocytes 11.0 L (16-45) % Sodium 135 L (136-145) mmol/L Potassium (3.4-4.5) mmol/L BUN 34 H (8-23) mg/dL Creatinine 1.4 H (0.7-1.2) mg/dL POC Glucose 275 H (70-110) mg/dL Random Glucose 172 H (74-109) mg/dL Calcium (8.8-10.2) mg/dL Urine Protein (NEGATIVE) Urine Blood (NEGATIVE) Urine Nitrite (NEGATIVE) Ur Leukocyte Esterase (NEGATIVE) 05/01/18 05/01/18 05/02/18 Range/Units 07:50 11:50 07:30 WBC (4.2-12.2) K/uL RBC (4.40-5.70) M/uL Hgb (14.0-18.0) gm/dl Hct (42.0-52.0) % MCHC (32-36) g/dl Plt Count (130-400) K/uL Lymphocytes % (16-45) % Lymphocytes (16-45) % Sodium (136-145) mmol/L Potassium (3.4-4.5) mmol/L BUN (8-23) mg/dL Creatinine (0.7-1.2) mg/dL POC Glucose 181 H 344 H 203 H (70-110) mg/dL Random Glucose (74-109) mg/dL Calcium (8.8-10.2) mg/dL Urine Protein (NEGATIVE) Urine Blood (NEGATIVE) Urine Nitrite (NEGATIVE) Ur Leukocyte Esterase (NEGATIVE) Condition at Discharge: (3) Guarded Discharge Medications - Discharge Medications Home Medications: Ambulatory Orders Insulin Glargine,Hum.rec.anlog [Lantus Solostar] 30 units SQ QAM 10/28/16 [Last Taken 04/03/18] Metformin HCl 850 mg PO BID 10/28/16 [Last Taken 04/03/18] Insulin Glulisine [Apidra Solostar] 6 iu SQ DAILY 04/03/18 [Last Taken 04/03/18] Acetaminophen [Tylenol 325Mg] 650 mg PO Q6H PRN tablet 04/14/18 [Last Taken Unknown] Apixaban [Eliquis] 2.5 mg PO BID tablet 04/14/18 [Last Taken Unknown] Bifidobacterium Infantis [Align] 4 mg PO DAILY capsule 04/14/18 [Last Taken Unknown] Ferrous Sulfate [Iron] 325 mg PO DAILY tablet 04/14/18 [Last Taken Unknown] Hydrocodone/APAP 5/325Mg [[place] 5Mg/325Mg] 1 each PO Q6H PRN tab 04/14/18 [ Last Taken Unknown] Insulin Aspart [Novolog Flexpen] 1 unit SQ TIDINS ml 04/14/18 [Last Taken Unknown] Insulin Detemir [Levemir Flextouch] 28 unit SQ DAILY syringe 04/14/18 [Last Taken Unknown] Metformin HCl [Glucophage Ir] 1,000 mg PO 1200,2200 tablet 04/14/18 [Last Taken Unknown] Potassium Chloride [Klor-Con] 20 meq PO DAILY tablet.sa 04/14/18 [Last Taken Unknown] Tamsulosin HCl [Flomax] 0.4 mg PO QHS cap.er.24h 04/14/18 [Last Taken Unknown] Zinc Oxide [Desitin] 1 gm TOP ASDIR PRN tube 04/14/18 [Last Taken Unknown] Acetaminophen [Tylenol 325Mg] 650 mg PO Q6H PRN tablet 05/02/18 [Last Taken Unknown] Apixaban [Eliquis] 2.5 mg PO BID tablet 05/02/18 [Last Taken Unknown] Bifidobacterium Infantis [Align] 4 mg PO DAILY capsule 05/02/18 [Last Taken Unknown] Cholestyramine/Aspartame [Prevalite] 1 pkt PO TID pkt 05/02/18 [Last Taken Unknown] Ferrous Sulfate [Iron] 325 mg PO DAILY tablet 05/02/18 [Last Taken Unknown] Hydrocodone/APAP 5/325Mg [[place] 5Mg/325Mg] 1 each PO Q6H PRN tab 05/02/18 [ Last Taken Unknown] Insulin Aspart [Novolog Flexpen] 1 unit SQ TIDINS ml 05/02/18 [Last Taken Unknown] Insulin Detemir [Levemir Flextouch] 30 unit SQ DAILY syringe 05/02/18 [Last Taken Unknown] Levofloxacin [Levaquin] 750 mg PO DAILYFLUOR tablet 05/02/18 [Last Taken Unknown] Midodrine HCl 5Mg Tablet [Midodrine HCl] 5 mg PO 0700,1100 tablet 05/02/18 [ Last Taken Unknown] Ondansetron [Zofran Odt] 4 mg SL Q8H PRN tab.rapdis 05/02/18 [Last Taken Unknown] Potassium Chloride [Klor-Con] 20 meq PO DAILY tablet.sa 05/02/18 [Last Taken Unknown] Tamsulosin HCl [Flomax] 0.4 mg PO DAILY cap.er.24h 05/02/18 [Last Taken Unknown ] Zinc Oxide [Desitin] 10 gm TOP ASDIR PRN tube 05/02/18 [Last Taken Unknown] Discharge Plan - Discharge Instructions Quality Measures - Quality Measures Quality Measures: Advance Directives, Documentation of Current Medications in Medical Record, Elder Maltreatment Screen and Follow-Up Plan, Screening for High Blood Pressure and F/U Documented - Current Medications Quality Measure: Measure #130: Documentation of Current Medications Documentation of Current Medications: <Current Medications Documented/Reviewed> [G9747] - Blood Pressure Screening Quality Measure: Screening for High Blood Pressure and Follow-Up Documented Does Patient Have Any of the Following: Active Dx of HTN Blood Pressure Classification: Normal BP Reading Systolic Measurement: 100 Diastolic Measurement: 57 Screening for High Blood Pressure: Patient Exclusion, Hx of HTN [G9744] - Advance Directives Quality Measure: Measure #47: Care Plan Advance Directives Established: No Advance Directives Information Provided To Patient: Yes Advance Directives on File: Yes Living Will: No Power of Manager [employer]: No Advance Care Planning: <Care Plan/Decision Maker Not Decided; Discussed & Documented> [1127G] - Elder Abuse Suspicion Index Screening: Elder Abuse Suspicion Index Screening Rely on people for bathing, dressing, shopping, banking, etc: No Prevented from getting food, clothes, medication, etc: No Made to feel shamed or threatened by someone: No Forced to sign papers or use money against will: No Feel afraid, touched in ways not wanted or hurt physically: No Poor eye contact, withdrawn, malnourished, cuts or bruises: No Screening Result: Negative result EASI Reference Information: Lucio MELÉNDEZ, Kirstin C, Miguel D, Rodolfo Domínguez.Development and validation of a tool to assist physicians identification of elder abuse: The Elder Abuse Suspicion Index (EASI ). Journal of Elder Abuse and Neglect, 2008; 20 (3): 276-300. - Elder Maltreatment Screen Quality Measures: Elder Maltreatment Screen and Follow-Up Plan Elder Maltreatment Screen: <Negative, No Follow-Up Plan Required> [G8734]
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
== END 2018-05-02 18:15 | disposition short-term general hospital (02) | DRG 948 ==
LOC: MEDSURG 04-18 17:54
PROVIDERS: ADMIT Internal Medicine; ATTEND Internal Medicine
DX: R53.81 Other malaise (principal); A04.72 Enterocolitis due to Clostridium difficile, not specified as recurrent; Z87.81 Personal history of (healed) traumatic fracture; D72.829 Elevated white blood cell count, unspecified; D64.9 Anemia, unspecified; R55 Syncope and collapse; I95.9 Hypotension, unspecified; R33.9 Retention of urine, unspecified; L98.8 Other specified disorders of the skin and subcutaneous tissue; R53.1 Weakness; I10 Essential (primary) hypertension; E78.00 Pure hypercholesterolemia, unspecified; E11.9 Type 2 diabetes mellitus without complications; Z96.0 Presence of urogenital implants; Z93.3 Colostomy status; Z87.891 Personal history of nicotine dependence
CPT/HCPCS: 36416; 71045; 80048; 81001; 82310; 82948; 84145; 85025; 85027; 97110; 97116; 97530; 97535; 99306; 99310; 99316; J2405

== ENCOUNTER 2018-06-12 12:10 | Emergency (ER) | payer MEDICARE ==
--- NOTE | 2018-06-12 12:45 | Emergency Department Record ---
History of Present Illness - General Chief complaint: Hypogylcemia Stated complaint: LOW BLOOD SUGAR Time Seen by Provider: 06/12/18 12:36 Source: Patient, RN notes reviewed Mode of Arrival: EMS - Related Data Allergies Allergy/AdvReac Type Severity Reaction Status Date / Time tamsulosin [From Flomax] AdvReac DIARRHEA Verified 06/12/18 12:45 Past Medical History - SOCIAL HISTORY Smoking Status: Former smoker - RESPIRATORY Hx Respiratory Disorders: No - CARDIOVASCULAR Hx Cardio Disorders: Yes Hx Hypertension: Yes - NEURO Hx Neuro Disorders: Yes Hx Dizziness: Yes (hx of) - GI Hx GI Disorders: Yes Hx Nausea/Vomiting: Yes Comment:: diarrhea hx - Hx Genitourinary Disorders: Yes Hx Renal Disease: Yes Comment:: urinary retention - ENDOCRINE Hx Endocrine Disorders: Yes Hx Diabetes: Yes Hx Thyroid Disease: No - MUSCULOSKELETAL Hx Musculoskeletal Disorders: No Comment:: fracture right hip - PSYCH Hx Psych Problems: No - HEMATOLOGY/ONCOLOGY Hx Hematology/Oncology Disorders: No Family Medical History Hx Cancer: Father Hx Diabetes: Mother Medical Decision Making - Lab Data Result diagrams: 06/12/18 12:25 06/12/18 12:25 Disposition Clinical Impression: Diabetes type 2, controlled, Hypoglycemia Disposition: Home, Self-Care Condition: (1) Good Instructions: Hypoglycemia in a Person with Diabetes (ED) Additional Instructions: decrease lantus to 14 units per day tomorrow and check glucose before meals and if glucose is less than 100 no apidra. follow up with family Dr in 2-5 days to talk about his insulin use. Dr. Alex. Forms: Patient Portal Access Quality - Quality Measures Quality Measures: N/A - Blood Pressure Screening Does Patient Have Any of the Following: No Blood Pressure Classification: Hypertensive Reading Systolic Measurement: 172 Diastolic Measurement: 79 Screening for High Blood Pressure: < First Hypertensive BP, F/U Documented > [ G8950] First Hypertensive Follow-up Interventions: Referral to alternative/primary care provider.
[2018-06-12] MEDS ORDERED: 0.9 % SODIUM CHLORIDE 1000ML 1,000 ML IV PRN (12:49)
[2018-06-12 13:01] LABS: BASO % 0.4 % (0-6); EOS % 1.3 % (0-6); GRAN % 77.3 % (47-80); HEMATOCRIT 32.6 % (42.0-52.0); HEMOGLOBIN 9.9 gm/dl (14.0-18.0); LYMPH % 12.2 % (16-45); MEAN CELL VOLUME 85.6 fl (81-97); MEAN CORPUSCULAR HGB CONC 30.4 g/dl (32-36); MEAN PLATELET VOLUME 10.5 fl (7.4-10.4); MONO % 8.8 % (0-9); PLATELET COUNT 542 K/uL (130-400); RED BLOOD COUNT 3.81 M/uL (4.40-5.70); RED CELL DISTRIBUTION WIDTH 15.1 % (11.5-14.5)
[2018-06-12 13:03] LABS: MEAN CORPUSCULAR HEMOGLOBIN 25.9 pg (27-33)
--- NOTE | 2018-06-12 13:12 | Emergency Department Record ---
History of Present Illness - General Chief complaint: Hypogylcemia Stated complaint: LOW BLOOD SUGAR Time Seen by Provider: 06/12/18 12:36 Source: Patient, RN, RN notes reviewed Mode of Arrival: EMS - History of Present Illness Initial comments: patient wake up and feeling ok and he took his lantus 28 units and apidra 6 units for breakfast and he vomited once after breakfast and prior to lunch his sugar was 69 units adn he was weak and EMS called and he was transported here. Patient was given crackers and orange juice in the ED adn lunch tray and observed. No chest pain , no dyspnea or abdominal pain Onset/Timin -: Hour(s) Associated Symptoms: Nausea/vomiting, Other - [place] Coma Scale Eye Response: (4) Open spontaneously Motor Response: (6) Obeys commands Verbal Response: (5) Oriented Oral Total: 15 - Related Data Allergies Allergy/AdvReac Type Severity Reaction Status Date / Time tamsulosin [From Flomax] AdvReac DIARRHEA Verified 06/12/18 12:45 Travel Screening - Travel/Exposure Within Last 30 Days Have you traveled within the last 30 days?: No - Travel/Exposure Within Last Year Have you traveled outside the [place] in the last year?: No - Additonal Travel Details Have you been exposed to anyone with a communicable illness?: No - Travel Symptoms Symptom Screening: Weakness, Vomiting Review of Systems Reviewed: No additional complaints except as noted below Constitutional: Reports: As per HPI. Denies: Chills, Fever, Malaise, Night sweats, Weakness, Weight change Eyes: Reports: As per HPI. Denies: Eye discharge, Eye pain, Photophobia, Vision change ENT: Reports: As per HPI. Denies: Congestion, Dental pain, Ear pain, Epistaxis , Hearing loss, Throat pain Respiratory: Reports: As per HPI. Denies: Cough, Dyspnea, Hemoptysis, Stridor, Wheezes Cardiovascular: Reports: As per HPI. Denies: Arrhythmia, Chest pain, Dyspnea on exertion, Edema, Murmurs, Orthopnea, Palpitations, Paroxysmal nocturnal dyspnea, Rheumatic Fever, Syncope Endocrine: Reports: As per HPI. Denies: Fatigue, Heat or cold intolerance, Polydipsia, Polyuria Gastrointestinal: Reports: As per HPI. Denies: Abdominal pain, Constipation, Diarrhea, Hematemesis, Hematochezia, Melena, Nausea Genitourinary: Reports: As per HPI. Denies: Dysuria, Frequency, Hematuria, Incontinence, Retention, Testicular pain, Testicular mass, Urgency Musculoskeletal: Reports: As per HPI. Denies: Arthralgia, Back pain, Gout, Joint swelling, Myalgia, Neck pain Skin: Reports: As per HPI. Denies: Bruising, Change in color, Change in hair/ nails, Lesions, Pruritus, Rash Neurological: Reports: As per HPI. Denies: Abnormal gait, Confusion, Headache, Numbness, Paresthesias, Seizure, Tingling, Tremors, Vertigo, Weakness Psychiatric: Reports: As per HPI. Denies: Anxiety, Auditory hallucinations, Depression, Homicidal thoughts, Suicidal thoughts, Visual hallucinations Hematological/Lymphatic: Reports: As per HPI. Denies: Anemia, Blood Clots, Easy bleeding, Easy bruising, Swollen glands Past Medical History - SOCIAL HISTORY Smoking Status: Former smoker - RESPIRATORY Hx Respiratory Disorders: No - CARDIOVASCULAR Hx Cardio Disorders: Yes Hx Hypertension: Yes - NEURO Hx Neuro Disorders: Yes Hx Dizziness: Yes (hx of) - GI Hx GI Disorders: Yes Hx Nausea/Vomiting: Yes Comment:: diarrhea hx - Hx Genitourinary Disorders: Yes Hx Renal Disease: Yes Comment:: urinary retention - ENDOCRINE Hx Endocrine Disorders: Yes Hx Diabetes: Yes Hx Thyroid Disease: No - MUSCULOSKELETAL Hx Musculoskeletal Disorders: No Comment:: fracture right hip - PSYCH Hx Psych Problems: No - HEMATOLOGY/ONCOLOGY Hx Hematology/Oncology Disorders: No Family Medical History Hx Cancer: Father Hx Diabetes: Mother Physical Exam - General General Appearance: Alert, Oriented x3, Cooperative, No acute distress - Head Head exam: Normal inspection - Eye Eye exam: Normal appearance, PERRL Pupils: Normal accommodation - ENT ENT exam: Normal exam, Mucous membranes moist, Normal external ear exam, Normal orophraynx, TM's normal bilaterally Ear exam: Normal external inspection. negative: External canal tenderness Nasal Exam: Normal inspection. negative: Discharge, Sinus tenderness Mouth exam: Normal external inspection, Tongue normal Teeth exam: Normal inspection. negative: Dental caries Throat exam: Normal inspection. negative: Tonsillar erythema, Tonsillar exudate - Neck Neck exam: Normal inspection, Full ROM. negative: Tenderness - Respiratory Respiratory exam: Normal lung sounds bilaterally. negative: Respiratory distress - Cardiovascular Cardiovascular Exam: Regular rate, Normal rhythm, Normal heart sounds - GI/Abdominal GI/Abdominal exam: Soft, Normal bowel sounds. negative: Tenderness - Rectal Rectal exam: Deferred - exam: Deferred - Extremities Extremities exam: Normal inspection, Full ROM, Normal capillary refill. negative: Tenderness - Back Back exam: Reports: Normal inspection, Full ROM. Denies: Muscle spasm, Rash noted, Tenderness - Neurological Neurological exam: Alert, Normal gait, Oriented X3, Reflexes normal - Psychiatric Psychiatric exam: Normal affect, Normal mood - Skin Skin exam: Dry, Intact, Normal color, Warm Course Vital Signs 06/12/18 06/12/18 12:35 12:54 Temperature 97.5 F L Pulse Rate 83 Respiratory 18 Rate Blood Pressure 172/79 Pulse Ox 99 - Reevaluation(s) Reevaluation #1: glucose 188 06/12/18 13:56 Medical Decision Making - Lab Data Result diagrams: 06/12/18 12:25 06/12/18 12:25 Lab Results 06/12/18 Range/Units 12:29 POC Glucose 69 L (70-110) mg/dL Disposition Clinical Impression: Hypoglycemia Diabetes type 2, controlled Qualifiers: Diabetes mellitus senior care insulin use: with senior care use Diabetes mellitus complication status: without complication Qualified Code(s): E11.9 - Type 2 diabetes mellitus without complications; 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 follow up with family Dr in 2-5 days to talk about his insulin use. Dr. Alex. Forms: Patient Portal Access Time of Disposition: 13:57 Quality - Quality Measures Quality Measures: N/A - Blood Pressure Screening Does Patient Have Any of the Following: No Blood Pressure Classification: Hypertensive Reading Systolic Measurement: 172 Diastolic Measurement: 79 Screening for High Blood Pressure: < First Hypertensive BP, F/U Documented > [ G8950] First Hypertensive Follow-up Interventions: Referral to alternative/primary care provider.
[2018-06-12 13:16] LABS: BLOOD UREA NITROGEN 16 mg/dL (8-23); CREATININE 1.1 mg/dL (0.7-1.2); EST GLOMERULAR FILTRATION RATE > 60 mL/min
[2018-06-12 13:17] LABS: TOTAL PROTEIN 7.7 g/dL (6.6-8.7)
[2018-06-12 13:19] LABS: GLUCOSE,RANDOM 63 mg/dL (74-109)
[2018-06-12 13:21] LABS: ALT/SGPT 11 U/L (<41); AST/SGOT 17 U/L (10.0-50.0)
[2018-06-12 13:22] LABS: ALBUMIN 4.2 g/dL (4.0-5.0); ALKALINE PHOSPHATASE 232 U/L (40-129)
[2018-06-12 13:32] LABS: BILIRUBIN,DIRECT < 0.2 mg/dL (0-0.3)
== END 2018-06-12 14:20 | disposition home or self-care (01) ==
LOC: ER 12:10
DX: E11.649 Type 2 diabetes mellitus with hypoglycemia without coma (principal); R11.2 Nausea with vomiting, unspecified; R53.1 Weakness; I10 Essential (primary) hypertension; Z87.891 Personal history of nicotine dependence; Z79.4 Long term (current) use of insulin; Z79.84 Long term (current) use of oral hypoglycemic drugs
CPT/HCPCS: 36416; 80048; 80076; 82948; 85025; 93005; 93010; 99284

== ENCOUNTER 2018-06-25 13:26 | Observation (INO) | payer MEDICARE ==
[~2018-06-25 13:26] MED LIST: CEFAZOLIN 2 Gram 2 GM/50 ML BAG IVPB ONE
[2018-06-25] MEDS ORDERED: MIDAZOLAM HCL 2MG/2ML VIAL IV ONE (13:27)
[2018-06-25] MEDS ORDERED: FLUMAZENIL 1MG/10ML VIAL IV ONE (13:27)
[2018-06-25] MEDS ORDERED: ONDANSETRON HCL IV 4 MG/2 ML VIAL IVP ONE (13:27)
[2018-06-25] MEDS ORDERED: ATROPINE SULFATE IVP ONE (13:27)
[2018-06-25] MEDS ORDERED: PROPOFOL 10 MG/ML VIAL IV ONE (13:27)
[2018-06-25] MEDS ORDERED: FENTANYL PF 100MCG/2ML VIAL IV ONE (13:27)
[2018-06-25] MEDS ORDERED: LIDOCAINE 2% MDV (20MG/ML) 20ML VIAL IV ONE (13:27)
[2018-06-25 14:17] LABS: BASO % 0.5 % (0-6); EOS % 3.9 % (0-6); GRAN % 68.9 % (47-80); HEMATOCRIT 34.7 % (42.0-52.0); HEMOGLOBIN 10.6 gm/dl (14.0-18.0); LYMPH % 18.5 % (16-45); MEAN CELL VOLUME 84.8 fl (81-97); MEAN CORPUSCULAR HEMOGLOBIN 25.9 pg (27-33); MEAN CORPUSCULAR HGB CONC 30.5 g/dl (32-36); MEAN PLATELET VOLUME 10.2 fl (7.4-10.4); MONO % 8.2 % (0-9); PLATELET COUNT 450 K/uL (130-400); RED BLOOD COUNT 4.09 M/uL (4.40-5.70); RED CELL DISTRIBUTION WIDTH 15.3 % (11.5-14.5); WHITE BLOOD COUNT W/O DIFF 12.5 K/uL (4.2-12.2)
[2018-06-25 14:33] LABS: CREATININE 1.3 mg/dL (0.7-1.2)
[2018-06-25] MEDS ORDERED: ACETAMINOPHEN 325 MG TAB PO PRN (21:06)
[2018-06-25] MEDS ORDERED: ONDANSETRON 4 MG ODT TABLET SL PRN (21:17)
[2018-06-25] MEDS ORDERED: HUMULIN R 100 UNIT/ML VIAL SQ SCH (22:00)
[2018-06-25] MEDS: FAMOTIDINE 20MG TABLET PO SCH (22:49)
[2018-06-25] MEDS: NOVOLOG FLEXPEN (INSULIN ASPART) 100 UNITS/ML SQ SCH (22:50)
[2018-06-26] MEDS: 0.9 % SODIUM CHLORIDE 1000ML 1,000 ML IV PRN ×3 (05:00→23:46)
[2018-06-26 06:56] LABS: BASO % 0.2 % (0-6); EOS % 0.3 % (0-6); HEMATOCRIT 29.2 % (42.0-52.0); HEMOGLOBIN 8.8 gm/dl (14.0-18.0); LYMPH % 7.5 % (16-45); MEAN CELL VOLUME 85.4 fl (81-97); MEAN CORPUSCULAR HEMOGLOBIN 25.7 pg (27-33); MEAN CORPUSCULAR HGB CONC 30.1 g/dl (32-36); MEAN PLATELET VOLUME 10.2 fl (7.4-10.4); MONO % 5.9 % (0-9); PLATELET COUNT 350 K/uL (130-400); RED BLOOD COUNT 3.42 M/uL (4.40-5.70); RED CELL DISTRIBUTION WIDTH 15.4 % (11.5-14.5); WHITE BLOOD COUNT W/O DIFF 18.8 K/uL (4.2-12.2)
--- NOTE | 2018-06-26 07:20 | RADIOLOGY REPORT ---
EXAM: PORTABLE CHEST HISTORY: POST ANESTHESIA VOMITING, POSSIBLE ASPIRATION. TECHNIQUE: A single AP portable view of the chest was obtained. Comparison: Portable chest 04/21/18. FINDINGS: Stable heart size. The patient is rotated towards the left currently. No definite acute infiltrate seen and no pleural effusion or pneumothorax evident. There is probably some minor discoid atelectasis with the left base medially. IMPRESSION: NO DEFINITE ACUTE INFILTRATE SEEN. MINOR DISCOID ATELECTASIS LEFT BASE MEDIALLY. JOB NUMBER: [id number] [facility]
[2018-06-26 07:21] LABS: ALB/GLOB RATIO 1.1 (1.1-1.8); ALBUMIN 3.3 g/dL (4.0-5.0); BILIRUBIN,TOTAL 0.4 mg/dL (0.2-1.0); CREATININE 1.4 mg/dL (0.7-1.2); TOTAL PROTEIN 6.2 g/dL (6.6-8.7)
[2018-06-26 07:57] LABS: URINE APPEARANCE CLOUDY; URINE BILIRUBIN NEGATIVE (NEGATIVE); URINE BLOOD MODERATE (NEGATIVE); URINE COLOR YELLOW; URINE GLUCOSE (UA) NEGATIVE (NEGATIVE); URINE KETONE TRACE (NEGATIVE); URINE LEUKOCYTE ESTERASE LARGE (NEGATIVE); URINE NITRITE NEGATIVE (NEGATIVE); URINE UROBILINOGEN 0.2 E.U./dL (0.20 - 1.00)
[2018-06-26 08:05] LABS: URINE BACTERIA FEW; URINE SQUAMOUS EPITHELIAL CELL 0 - 2 /hpf
[2018-06-26] MEDS: NOVOLOG FLEXPEN (INSULIN ASPART) 100 UNITS/ML SQ SCH ×4 (08:24→22:53)
[2018-06-26] MEDS: TMP/SMZ 160MG/800MG TAB PO SCH ×2 (11:09→22:53)
[2018-06-26] MEDS: FAMOTIDINE 20MG TABLET PO SCH ×2 (11:09→22:53)
--- NOTE | 2018-06-26 14:38 | History & Physical ---
History of Present Illness - Date of Service Date of Service for History & Physical: 06/27/18 - History of Present Illness Admitting Diagnosis: GI Bleed, r/o aspiration of emesis History of Present Illness: Mr. Albright was admitted on 06/25/18 following an elective surgical procedure ( cysto with Dr. Sanchez) due to aspiration of coffee-ground emesis when emerging from anesthesia. He did require intubation for a brief period to secure his airway. A chest xray was done at that time, it identified some left lung base atelectasis. He reportedly has a hx of intermittent coffee-ground emesis since Mar 2018, he was rescheduled twice for scopes, and it he has not tired any other interventions/treatments. His history includes right hip Fx in 03/2018, urinary retention since (indwelling naqvi since), c diff infection, swing bed admission on 04/10/18-04/19/18. Other hx includes IDDM, HTN, hyperlipidemia. 06/26/17: Stool neg for occult blood. Pt. has only had 1 episode of emesis since admission. Started on pepcid 20mg bid, zofran 4mg q8h prn nausea. GI consult ordered. Stool was positive for c diff- ordered oral vanco 125mg q6h. UA was positive for mod blood, large leuks, 7-10 RBCs and WBC tntc. Started pt on bactrim DS BID. PCP: Dr. Alex Travel Screening - Travel/Exposure Within Last 30 Days Have you traveled within the last 30 days?: No - Travel/Exposure Within Last Year Have you traveled outside the [place] in the last year?: No - Additonal Travel Details Have you been exposed to anyone with a communicable illness?: No - Travel Symptoms Symptom Screening: None Past Medical History - SOCIAL HISTORY Smoking Status: Former smoker Alcohol Use: None Drug Use: None - RESPIRATORY Hx Respiratory Disorders: No - CARDIOVASCULAR Hx Cardio Disorders: Yes Hx Hypertension: Yes Comment:: hx orthostatic hypotension - NEURO Hx Neuro Disorders: Yes Hx Dizziness: Yes (hx of) - GI Hx GI Disorders: No Hx Reflux: Yes Hx Nausea/Vomiting: Yes - Hx Genitourinary Disorders: Yes Hx Renal Disease: Yes Comment:: urinary retention since right hip ORIF - ENDOCRINE Hx Endocrine Disorders: Yes Hx Diabetes: Yes (x10 years) - MUSCULOSKELETAL Hx Musculoskeletal Disorders: No - PSYCH Hx Psych Problems: No - HEMATOLOGY/ONCOLOGY Hx Hematology/Oncology Disorders: No Hx Anemia: Yes Family Medical History Any Significant Family History?: Yes Hx Cancer: Father Hx Diabetes: Mother H&P Meds/Allergies - Allergies Allergies: Allergies Allergy/AdvReac Type Severity Reaction Status Date / Time tamsulosin [From Flomax] AdvReac DIARRHEA Verified 06/12/18 12:45 - Active Medications Active Medications: Current Medications Acetaminophen (Tylenol 325mg) 650 mg PO Q4H PRN PRN Reason: PAIN - MILD(1-4)/FEVER Last Admin: 06/25/18 21:15 Dose: 650 mg Famotidine (Pepcid) 20 mg PO BID [facility] Last Admin: 06/26/18 11:09 Dose: 20 mg Sodium Chloride () 1,000 mls @ 100 mls/hr IV .Q10H PRN PRN Reason: LARGE VOLUME IV Last Admin: 06/26/18 14:10 Dose: 100 mls/hr Insulin Aspart (Novolog Flexpen) 1 unit SQ QIDINS [facility]; Protocol Last Admin: 06/26/18 13:08 Dose: 6 unit Ondansetron HCl (Zofran Odt) 4 mg SL Q8H PRN PRN Reason: NAUSEA/VOMITING Trimethoprim/Sulfamethoxazole (Bactrim Ds) 1 each PO BID [facility] Last Admin: 06/26/18 11:09 Dose: 1 each Physical Exam - Vital Signs Vital Signs: Vital Signs - Last 24 Hrs Temp Pulse Resp BP Pulse Ox 06/26/18 10:32 97.9 F 80 16 142/69 98 06/26/18 09:00 80 06/26/18 03:40 98.1 F 77 18 116/61 97 06/25/18 23:05 98.4 F 90 18 110/53 06/25/18 22:05 97.9 F 98 H 18 164/86 98 06/25/18 21:06 97.7 F 100 H 18 183/101 94 L 06/25/18 20:45 92 H 18 142/81 95 06/25/18 20:15 97.3 F L 95 H 18 139/75 97 06/25/18 20:00 91 H 18 121/68 92 L 06/25/18 19:45 97.5 F L 89 18 133/77 94 L 06/25/18 19:25 98.1 F 89 20 123/69 90 L - General General Appearance: Alert, Oriented x3, Cooperative, No acute distress Limitations: No limitations - Head Head exam: Normal inspection Head exam detail: negative: Abrasion, Contusion - Eye Eye exam: Normal appearance, PERRL Pupils: Normal accommodation - ENT ENT exam: Normal exam, Mucous membranes moist, Normal external ear exam, Normal orophraynx, TM's normal bilaterally Ear exam: Normal external inspection. negative: External canal tenderness Nasal Exam: Normal inspection. negative: Discharge, Sinus tenderness Mouth exam: Normal external inspection, Tongue normal Teeth exam: Normal inspection. negative: Dental caries Throat exam: Normal inspection. negative: Tonsillar erythema, Tonsillar exudate - Neck Neck exam: Normal inspection, Full ROM. negative: Tenderness - Respiratory Respiratory exam: Rhonchi, Wheezes. negative: Accessory muscle use - Cardiovascular Cardiovascular Exam: Regular rate, Normal rhythm, Normal heart sounds - GI/Abdominal GI/Abdominal exam: Soft, Normal bowel sounds. negative: Tenderness - Rectal Rectal exam: Deferred - exam: Deferred, Other (naqvi in place with clear yellow urine) - Extremities Extremities exam: Normal inspection, Full ROM, Normal capillary refill. negative: Tenderness - Back Back exam: Reports: Normal inspection, Full ROM. Denies: Muscle spasm, Rash noted, Tenderness - Neurological Neurological exam: Alert, Normal gait, Oriented X3, Reflexes normal - Psychiatric Psychiatric exam: Normal affect, Normal mood - Skin Skin exam: Dry, Intact, Normal color, Warm Results - Labs Result Diagrams: 06/27/18 06:56 06/27/18 06:56 Labs Last 24 Hours: Laboratory Results - last 24 hr 06/25/18 06/25/18 06/25/18 13:34 14:25 21:50 WBC RBC Hgb Hct MCV MCH MCHC RDW Plt Count MPV Neutrophils % Band Neutrophils % Lymphocytes % Monocytes % Eosinophils % Basophils % Lymphocytes Monocytes Sodium 138 Potassium 3.7 Chloride 97 L Carbon Dioxide 25.0 Anion Gap 16.0 BUN 21 Creatinine 1.3 H Estimated GFR 57 POC Glucose 192 H 268 H Random Glucose 215 H Calcium 9.6 Total Bilirubin AST ALT Alkaline Phosphatase Total Protein Albumin Globulin Albumin/Globulin Ratio Urine Color Urine Appearance Urine pH Ur Specific [place] Urine Protein Urine Glucose (UA) Urine Ketones Urine Blood Urine Nitrite Urine Bilirubin Urine Urobilinogen Ur Leukocyte Esterase Urine RBC Urine WBC U Non-Squamous Epi Cells Urine Bacteria Stool Occult Blood C. difficile Ag & Toxin 06/26/18 06/26/18 06/26/18 03:45 03:45 06:47 WBC 18.8 H RBC 3.42 L Hgb 8.8 L Hct 29.2 L MCV 85.4 MCH 25.7 L MCHC 30.1 L RDW 15.4 H Plt Count 350 MPV 10.2 Neutrophils % 86.0 H Band Neutrophils % 1.0 Lymphocytes % 7.5 L Monocytes % 5.9 Eosinophils % 0.3 Basophils % 0.2 Lymphocytes 11.0 L Monocytes 2.0 Sodium Potassium Chloride Carbon Dioxide Anion Gap BUN Creatinine Estimated GFR POC Glucose Random Glucose Calcium Total Bilirubin AST ALT Alkaline Phosphatase Total Protein Albumin Globulin Albumin/Globulin Ratio Urine Color Urine Appearance Urine pH Ur Specific [place] Urine Protein Urine Glucose (UA) Urine Ketones Urine Blood Urine Nitrite Urine Bilirubin Urine Urobilinogen Ur Leukocyte Esterase Urine RBC Urine WBC U Non-Squamous Epi Cells Urine Bacteria Stool Occult Blood Negative C. difficile Ag & Toxin Detected H 06/26/18 06/26/18 06:47 07:45 WBC RBC Hgb Hct MCV MCH MCHC RDW Plt Count MPV Neutrophils % Band Neutrophils % Lymphocytes % Monocytes % Eosinophils % Basophils % Lymphocytes Monocytes Sodium 140 Potassium 4.1 Chloride 103 Carbon Dioxide 24.0 Anion Gap 13.0 BUN 23 Creatinine 1.4 H Estimated GFR 53 POC Glucose Random Glucose 183 H Calcium 8.3 L Total Bilirubin 0.40 AST 12 ALT 7 Alkaline Phosphatase 172 H Total Protein 6.2 L Albumin 3.3 L Globulin 2.9 Albumin/Globulin Ratio 1.1 Urine Color Yellow Urine Appearance Cloudy Urine pH 5.5 Ur Specific [place] 1.025 Urine Protein 100 mg/dl H Urine Glucose (UA) Negative Urine Ketones Trace H Urine Blood Moderate Urine Nitrite Negative Urine Bilirubin Negative Urine Urobilinogen 0.2 Ur Leukocyte Esterase Large H Urine RBC 7 - 10 Urine WBC Too numerous to cnt U Non-Squamous Epi Cells 0 - 2 Urine Bacteria Few Stool Occult Blood C. difficile Ag & Toxin VTE H&P Assessment - Risk for VTE Risk for VTE: Yes Risk Level: Very Low Risk Assessment Date: 06/26/18 Risk Assessment Time: 14:38 VTE Orders Placed or Will Be Placed: No VTE Reason for No Prophylaxis: Contraindicated (GI bleed ) Plan - Inpatient Certification Inpatient Certification: Admit to inpatient care: Based on my medical assessment, after consideration of patient's risk factors (age, co-morbidities and patient presenting symptoms and acuity), I expect that this patient will remain in the hospital greater than or equal to two midnights and that the services needed warrant inpatient care because: Patient Risk Factors: [] Estimated length of stay: [] The patient may reasonably be expected to be discharged or transferred to a hospital within 96 hours after admission to [facility]. Services needed: [] Post hospital care (if known): [] I certify that my determination is in accordance with my understanding of Medicare requirements for reasonable and necessary inpatient services. - Detailed Diagnosis and Plan (1) C. difficile diarrhea Current Visit: No Status: Acute Base Code: A04.72 - ENTEROCOLITIS D/T CLOSTRIDIUM DIFFICILE, NOT SPCF RECUR Comment: 06/26/18: -Stool cultures positive for c-diff on admission -Frequent loose stools continued, fecal management system in place -Vanco 125mg PO q6h ordered -Probiotic daily -Contact isolation -Encourage increased PO fluid intake 05/01/18 -pt encouraged to start small amt of cholestyramine to help form stool -f/u GI for cscope after d/c (2) Hematemesis Current Visit: Yes Status: Acute Base Code: K92.0 - HEMATEMESIS Comment: : -Hx of intermittent hematemesis over last 1-2 months (poss aspiration after surgery yesterday) -pepcid 20mg bid, zofran 4mg q8h prn nausea -GI referral ordered (3) Aspiration pneumonia due to inhalation of vomitus Current Visit: Yes Status: Acute Base Code: J69.0 - PNEUMONITIS DUE TO INHALATION OF FOOD AND VOMIT (4) Low hemoglobin Current Visit: No Status: Acute Base Code: D64.9 - ANEMIA, UNSPECIFIED Comment: 06/26/18: -likely secondary to upper GI bleeding- hematemesis - Stool occult negative - GI consult ordered (5) Urinary retention Current Visit: No Status: Acute Base Code: R33.9 - RETENTION OF URINE, UNSPECIFIED Comment: 06/26/18: -Patient has had urinary retention since post-op hip surgery in Mar 2018 -Naqvi in place now, UA obtained and pos this am- started on bactrim DS -Urine sent for culture (6) At risk for deep venous thrombosis Current Visit: Yes Status: Acute Base Code: Z91.89 - OTH PERSONAL RISK FACTORS, NOT ELSEWHERE CLASSIFIED Comment: 06/26/18: -low risk for dvt- decreased mobility with hospitalization -nursing to encourage ambulation -holding prophylaxis due to poss upper GI bleed (7) Full code status Current Visit: No Status: Acute Base Code: Z78.9 - OTHER SPECIFIED HEALTH STATUS Comment: 06/26/18 -Full code status
[2018-06-26] MEDS ORDERED: ALBUTEROL SULFATE (0.083%) 2.5 MG/3 ML NEB INH PRN (17:17)
[2018-06-26] MEDS: VANCOMYCIN HCL 1 GM VIAL PO SCH ×2 (18:38→23:02)
[2018-06-26] MEDS: BIFIDOBACTERIUM INFANTIS 4 MG CAPSULE PO SCH (18:38)
[2018-06-27] MEDS: VANCOMYCIN HCL 1 GM VIAL PO SCH ×3 (06:45→17:59)
[2018-06-27 07:04] LABS: HEMATOCRIT 27.6 % (42.0-52.0); HEMOGLOBIN 8.4 gm/dl (14.0-18.0); RED BLOOD COUNT 3.21 M/uL (4.40-5.70)
[2018-06-27 07:05] LABS: BASO % 0.4 % (0-6); EOS % 2.6 % (0-6); GRAN % 79.8 % (47-80); LYMPH % 10.1 % (16-45); MEAN CORPUSCULAR HGB CONC 30.4 g/dl (32-36); MEAN PLATELET VOLUME 10.2 fl (7.4-10.4); MONO % 7.1 % (0-9); PLATELET COUNT 312 K/uL (130-400); RED CELL DISTRIBUTION WIDTH 15.6 % (11.5-14.5)
--- NOTE | 2018-06-27 07:14 | RADIOLOGY REPORT ---
EXAM: PORTABLE CHEST HISTORY: POSSIBLE ASPIRATION PNEUMONIA. TECHNIQUE: A single mobile upright view of the chest was obtained. Comparison: Portable chest dated 06/25/18. FINDINGS: The heart is not enlarged. No pulmonary venous hypertension is seen. The thoracic aorta remains tortuous and atherosclerotic. New patchy air space disease is demonstrated within the left base consistent with atelectasis or infiltrate. Aspiration cannot be excluded. The lungs and pleural spaces are otherwise clear. IMPRESSION: NEW MINOR PATCHY AIR SPACE DISEASE WITHIN THE LEFT LUNG BASE CONSISTENT WITH ATELECTASIS OR INFILTRATE. ASPIRATION WOULD BE DIFFICULT TO EXCLUDE. OTHERWISE , NO SIGNIFICANT INTERVAL CHANGE. JOB NUMBER: [id number] MTDD
[2018-06-27 07:16] LABS: MEAN CORPUSCULAR HEMOGLOBIN 26.1 pg (27-33)
[2018-06-27 07:26] LABS: ALB/GLOB RATIO 1.2 (1.1-1.8); ALBUMIN 3.4 g/dL (4.0-5.0); BILIRUBIN,TOTAL 0.2 mg/dL (0.2-1.0); CREATININE 1.3 mg/dL (0.7-1.2); TOTAL PROTEIN 6.3 g/dL (6.6-8.7)
[2018-06-27] MEDS: NOVOLOG FLEXPEN (INSULIN ASPART) 100 UNITS/ML SQ SCH ×2 (08:52→12:54)
[2018-06-27] MEDS: BIFIDOBACTERIUM INFANTIS 4 MG CAPSULE PO SCH (09:45)
[2018-06-27] MEDS: FAMOTIDINE 20MG TABLET PO SCH (09:45)
[2018-06-27] MEDS: TMP/SMZ 160MG/800MG TAB PO SCH ×2 (09:46→18:00)
[2018-06-27] MEDS ORDERED: PANTOPRAZOLE SODIUM 40 MG TABLET PO SCH (12:00)
[2018-06-27 16:38] LABS: HEMATOCRIT 27.5 % (42.0-52.0); HEMOGLOBIN 8.2 gm/dl (14.0-18.0); MEAN CELL VOLUME 85.4 fl (81-97); MEAN CORPUSCULAR HGB CONC 29.8 g/dl (32-36); MEAN PLATELET VOLUME 10.3 fl (7.4-10.4); PLATELET COUNT 318 K/uL (130-400); RED BLOOD COUNT 3.22 M/uL (4.40-5.70); RED CELL DISTRIBUTION WIDTH 15.8 % (11.5-14.5); WHITE BLOOD COUNT W/O DIFF 13.5 K/uL (4.2-12.2)
[2018-06-27 16:40] LABS: MEAN CORPUSCULAR HEMOGLOBIN 25.4 pg (27-33)
--- NOTE | 2018-06-27 16:42 | Discharge Summary ---
Providers Discharge Summary Date: 06/27/18 Date of admission: 06/25/18 19:25 Expected Date of Discharge: 06/27/18 Attending physician: TRIP LAGUNA Primary care physician: SHAUNA ALEX M.D. Consults: Consult Orders 06/26/18 11:22 Consult NOW Consulting Provider: DOMENIC KENYON Physician Instructions: Intermittent coffee-ground emesis>1mo., c diff pos Reason For Exam: upper GI bleed Physical Exam - Vital Signs Vital Signs: Vital Signs - Last 24 Hrs Temp Pulse Pulse Resp BP Pulse Ox 06/27/18 16:00 98.2 F 72 18 140/66 94 L 06/27/18 13:19 77 20 92 L 06/27/18 08:03 97.7 F 76 16 145/72 90 L 06/27/18 03:57 97.4 F L 81 18 128/58 90 L 06/26/18 20:00 98.7 F 74 16 106/54 89 L 06/26/18 17:08 98.1 F 84 16 131/75 93 L - General General Appearance: Alert, Oriented x3, Cooperative, No acute distress Limitations: No limitations - Head Head exam: Normal inspection Head exam detail: negative: Abrasion, Contusion - Eye Eye exam: Normal appearance, PERRL Pupils: Normal accommodation - ENT ENT exam: Normal exam, Mucous membranes moist, Normal external ear exam, Normal orophraynx, TM's normal bilaterally Ear exam: Normal external inspection. negative: External canal tenderness Nasal Exam: Normal inspection. negative: Discharge, Sinus tenderness Mouth exam: Normal external inspection, Tongue normal Teeth exam: Normal inspection. negative: Dental caries Throat exam: Normal inspection. negative: Tonsillar erythema, Tonsillar exudate - Neck Neck exam: Normal inspection, Full ROM. negative: Tenderness - Respiratory Respiratory exam: Rhonchi, Wheezes. negative: Accessory muscle use - Cardiovascular Cardiovascular Exam: Regular rate, Normal rhythm, Normal heart sounds - GI/Abdominal GI/Abdominal exam: Soft, Normal bowel sounds. negative: Tenderness - Rectal Rectal exam: Deferred - exam: Deferred, Other (naqvi in place with clear yellow urine) - Extremities Extremities exam: Normal inspection, Full ROM, Normal capillary refill. negative: Tenderness - Back Back exam: Reports: Normal inspection, Full ROM. Denies: Muscle spasm, Rash noted, Tenderness - Neurological Neurological exam: Alert, Normal gait, Oriented X3, Reflexes normal - Psychiatric Psychiatric exam: Normal affect, Normal mood - Skin Skin exam: Dry, Intact, Normal color, Warm Hospitalization - Hospitalization Admission Diagnosis: GI Bleed, r/o aspiration of emesis - Problem List/Discharge Diagnosis (1) C. difficile diarrhea Status: Acute Base Code: A04.72 - ENTEROCOLITIS D/T CLOSTRIDIUM DIFFICILE, NOT SPCF RECUR Comment: 06/27/18: -Stool cultures positive for c-diff on admission -Frequent loose stools continued, fecal management system in place -Vanco 125mg PO q6h ordered -Probiotic daily -Contact isolation -Encourage increased PO fluid intake -f/u GI for cscope after d/c (2) Hematemesis Status: Acute Base Code: K92.0 - HEMATEMESIS Comment: 06/27/18: -Hx of intermittent hematemesis over last 1-2 months (poss aspiration after surgery yesterday) -GI referral, per GI, likely GERD-related, recommended starting PPI bid (3) Low hemoglobin Status: Acute Base Code: D64.9 - ANEMIA, UNSPECIFIED Comment: 06/27/18: -likely secondary to upper GI bleeding- hematemesis - Stool occult negative - Serial hgb at baseline - Pt to f/u with GI outpatient (4) Urinary retention Status: Acute Base Code: R33.9 - RETENTION OF URINE, UNSPECIFIED Comment: : -Patient has had urinary retention since post-op hip surgery in Mar 2018 -Naqvi in place, bactrim DS bid -Urine sent for culture (5) At risk for deep venous thrombosis Status: Acute Base Code: Z91.89 - OTH PERSONAL RISK FACTORS, NOT ELSEWHERE CLASSIFIED Comment: 06/27/18: -low risk for dvt- decreased mobility with hospitalization -nursing to encourage ambulation -holding prophylaxis due to poss upper GI bleed (6) Full code status Status: Acute Base Code: Z78.9 - OTHER SPECIFIED HEALTH STATUS Comment: 06/27 -Full code status - Hospitalization Course Disposition: Home Health Service Hospital Course: Mr. Albright was admitted on 06/25/18 following an elective surgical procedure ( cysto with Dr. Sanchez) due to aspiration of coffee-ground emesis when emerging from anesthesia. He did require intubation for a brief period to secure his airway. A chest xray was done at that time, it identified some left lung base atelectasis. He reportedly has a hx of intermittent coffee-ground emesis since Mar 2018, he was rescheduled twice for scopes, and it he has not tired any other interventions/treatments. His history includes right hip Fx in 03/2018, urinary retention since (indwelling naqvi since), c diff infection, swing bed admission on 04/10/18-04/19/18. Other hx includes IDDM, HTN, hyperlipidemia. 06/26/17: Stool neg for occult blood. Pt. has only had 1 episode of emesis since admission. Started on pepcid 20mg bid, zofran 4mg q8h prn nausea. GI consult ordered. Stool was positive for c diff- ordered oral vanco 125mg q6h. UA was positive for mod blood, large leuks, 7-10 RBCs and WBC tntc. Started pt on bactrim DS BID. 06/27/18: Pt. is resting in bed, he reports improved cough, VSS. Serial hemoglobins stable at pt's baseline. GI contsult complete today- no scope while inpatient. Recommended starting PPI twice daily and f/u for upper and lower scopes in 3- 4 weeks. Plan to continue PO vanco for 14 days. PCP: Dr. Alex Procedures: Imaging and X-Rays 06/25/18 17:55 CHEST 1 VIEW [RAD] Stat 06/26/18 11:22 CHEST 1 VIEW [RAD] Stat Cardiology Procedures 06/25/18 21:14 Motor Checker .Continuous Abnormal Labs: Abnormal Lab Results 06/25/18 06/25/18 06/25/18 Range/Units 13:34 13:34 14:25 WBC 12.5 H (4.2-12.2) K/uL RBC 4.09 L (4.40-5.70) M/uL Hgb 10.6 L (14.0-18.0) gm/dl Hct 34.7 L (42.0-52.0) % MCH 25.9 L (27-33) pg MCHC 30.5 L (32-36) g/dl RDW 15.3 H (11.5-14.5) % Plt Count 450 H (130-400) K/uL Neutrophils % (47-80) % Lymphocytes % (16-45) % Lymphocytes (16-45) % Potassium (3.4-4.5) mmol/L Chloride 97 L (98-107) mmol/L Creatinine 1.3 H (0.7-1.2) mg/dL POC Glucose 192 H (70-110) mg/dL Random Glucose 215 H (74-109) mg/dL Calcium (8.8-10.2) mg/dL Alkaline Phosphatase (40-129) U/L Total Protein (6.6-8.7) g/dL Albumin (4.0-5.0) g/dL Urine Protein (NEGATIVE) Urine Ketones (NEGATIVE) Ur Leukocyte Esterase (NEGATIVE) C. difficile Ag & Toxin (NOT DETECT) 06/25/18 06/26/18 06/26/18 Range/Units 21:50 03:45 06:47 WBC 18.8 H (4.2-12.2) K/uL RBC 3.42 L (4.40-5.70) M/uL Hgb 8.8 L (14.0-18.0) gm/dl Hct 29.2 L (42.0-52.0) % MCH 25.7 L (27-33) pg MCHC 30.1 L (32-36) g/dl RDW 15.4 H (11.5-14.5) % Plt Count (130-400) K/uL Neutrophils % 86.0 H (47-80) % Lymphocytes % 7.5 L (16-45) % Lymphocytes 11.0 L (16-45) % Potassium (3.4-4.5) mmol/L Chloride (98-107) mmol/L Creatinine (0.7-1.2) mg/dL POC Glucose 268 H (70-110) mg/dL Random Glucose (74-109) mg/dL Calcium (8.8-10.2) mg/dL Alkaline Phosphatase (40-129) U/L Total Protein (6.6-8.7) g/dL Albumin (4.0-5.0) g/dL Urine Protein (NEGATIVE) Urine Ketones (NEGATIVE) Ur Leukocyte Esterase (NEGATIVE) C. difficile Ag & Toxin Detected H (NOT DETECT) 06/26/18 06/26/18 06/26/18 Range/Units 06:47 07:45 21:50 WBC (4.2-12.2) K/uL RBC (4.40-5.70) M/uL Hgb (14.0-18.0) gm/dl Hct (42.0-52.0) % MCH (27-33) pg MCHC (32-36) g/dl RDW (11.5-14.5) % Plt Count (130-400) K/uL Neutrophils % (47-80) % Lymphocytes % (16-45) % Lymphocytes (16-45) % Potassium (3.4-4.5) mmol/L Chloride (98-107) mmol/L Creatinine 1.4 H (0.7-1.2) mg/dL POC Glucose 221 H (70-110) mg/dL Random Glucose 183 H (74-109) mg/dL Calcium 8.3 L (8.8-10.2) mg/dL Alkaline Phosphatase 172 H (40-129) U/L Total Protein 6.2 L (6.6-8.7) g/dL Albumin 3.3 L (4.0-5.0) g/dL Urine Protein 100 mg/dl H (NEGATIVE) Urine Ketones Trace H (NEGATIVE) Ur Leukocyte Esterase Large H (NEGATIVE) C. difficile Ag & Toxin (NOT DETECT) 06/27/18 06/27/18 06/27/18 Range/Units 06:56 06:56 11:30 WBC 14.0 H (4.2-12.2) K/uL RBC 3.21 L (4.40-5.70) M/uL Hgb 8.4 L (14.0-18.0) gm/dl Hct 27.6 L (42.0-52.0) % MCH 26.1 L (27-33) pg MCHC 30.4 L (32-36) g/dl RDW 15.6 H (11.5-14.5) % Plt Count (130-400) K/uL Neutrophils % (47-80) % Lymphocytes % 10.1 L (16-45) % Lymphocytes (16-45) % Potassium 3.3 L (3.4-4.5) mmol/L Chloride (98-107) mmol/L Creatinine 1.3 H (0.7-1.2) mg/dL POC Glucose 284 H (70-110) mg/dL Random Glucose 142 H (74-109) mg/dL Calcium 8.3 L (8.8-10.2) mg/dL Alkaline Phosphatase 167 H (40-129) U/L Total Protein 6.3 L (6.6-8.7) g/dL Albumin 3.4 L (4.0-5.0) g/dL Urine Protein (NEGATIVE) Urine Ketones (NEGATIVE) Ur Leukocyte Esterase (NEGATIVE) C. difficile Ag & Toxin (NOT DETECT) Condition at Discharge: (2) Stable Discharge Medications - Discharge Medications Prescriptions: Omeprazole 20 mg PO BID #28 capsule. Sulfamethoxazole/Trimethoprim [Bactrim] 1 each PO BID 5 Days #10 tab Vancomycin HCl [Vancomycin] 125 mg PO Q6H 14 Days capsule Home Medications: Ambulatory Orders Insulin Glargine,Hum.rec.anlog [Lantus Solostar] 30 units SQ QAM 10/28/16 [Last Taken 06/25/18] Metformin HCl 850 mg PO BID 10/28/16 [Last Taken 06/23/18] Insulin Glulisine [Apidra Solostar] 6 iu SQ DAILY 04/03/18 [Last Taken 06/25/18] Bifidobacterium Infantis [Align] 4 mg PO DAILY capsule 06/27/18 [Last Taken Unknown] Omeprazole 20 mg PO BID #28 capsule. 06/27/18 [Last Taken Unknown] Sulfamethoxazole/Trimethoprim [Bactrim] 1 each PO BID 5 Days #10 tab 06/27/18 [ Last Taken Unknown] Vancomycin HCl [Vancomycin] 125 mg PO Q6H 14 Days capsule 06/27/18 [Last Taken Unknown] Discharge Plan - Discharge Instructions Activity at Discharge: Increase Activity as Tolerated Diet at Discharge: Advance to Usual Diet Instructions: Urinary Tract Infection in Men (DC), Clostridium Difficile Infection (DC) Additional Instructions: Start omeprazole 20mg twice daily (take first dose on am empty stomach first thing in the morning and wait 30 minutes prior to eating) Follow up with GI in 3-4 weeks Go to the ED if any symptoms worsen, if you notice bright red blood in vomit or stool, or for any chest pain Quality Measures - Quality Measures Quality Measures: Advance Directives, Documentation of Current Medications in Medical Record, Elder Maltreatment Screen and Follow-Up Plan, Screening for High Blood Pressure and F/U Documented - Current Medications Quality Measure: Measure #130: Documentation of Current Medications Documentation of Current Medications: <Current Medications Documented/Reviewed> [G2028] - Blood Pressure Screening Quality Measure: Screening for High Blood Pressure and Follow-Up Documented Does Patient Have Any of the Following: Active Dx of HTN Blood Pressure Classification: Pre-Hypertensive BP Reading Systolic Measurement: 138 Diastolic Measurement: 75 Screening for High Blood Pressure: Patient Exclusion, Hx of HTN [G9744] Pre-Hypertensive Follow-up Interventions: Follow-up with rescreen every year. - Advance Directives Quality Measure: Measure #47: Care Plan Advance Directives Established: No Advance Directives Information Provided To Patient: Yes Advance Directives on File: Yes Living Will: No Power of Circulating Nurse: No Advance Care Planning: <Care Plan/Decision Maker Documented; Discussed & Documented> [[id number]] - Elder Abuse Suspicion Index Screening: Elder Abuse Suspicion Index Screening Rely on people for bathing, dressing, shopping, banking, etc: Yes Prevented from getting food, clothes, medication, etc: Yes Made to feel shamed or threatened by someone: No Forced to sign papers or use money against will: No Feel afraid, touched in ways not wanted or hurt physically: No Poor eye contact, withdrawn, malnourished, cuts or bruises: No Screening Result: Positive result, One YES response in questions 2-6. EASI Reference Information: Lucio MELÉNDEZ, Kristin C, Miguel D, Rodolfo Domínguez.Development and validation of a tool to assist physicians identification of elder abuse: The Elder Abuse Suspicion Index (EASI ). Journal of Elder Abuse and Neglect, 2008; 20 (3): 276-300. - Elder Maltreatment Screen Quality Measures: Elder Maltreatment Screen and Follow-Up Plan Elder Maltreatment Screen: <Positive AND Follow-up Plan Documented> [P2891]
--- NOTE | 2018-06-28 08:50 | Medical Records Consult ---
DATE OF CONSULTATION: 06/27/2018 REASON FOR CONSULTATION: Hematemesis. HISTORY OF PRESENT ILLNESS: The patient is a pleasant 72-year-old gentleman who was noted to have an abrupt onset of hematemesis after recent cystoscopy. He had a brief period of endotracheal intubation for airway protection and pulmonary resuscitation. He was subsequently extubated and transferred to the floor. He has not been having any melena or hematochezia but apparently has been having profound diarrhea. He recently was hospitalized at [facility] and [place] [facility] [place] and was noted to have C difficile diarrhea. He apparently completed a course of vancomycin and now has recurrent diarrhea and has retested positive. He denies any nausea or vomiting at this time but does have a long-standing history of intermittent nausea and vomiting. He had briefly taken a PPI but states he has been off this for 2 weeks or so. He had previously been on Eliquis, stopped this. He has also been taking iron. He has not had a recent upper endoscopy. His last colonoscopy was greater than 10 years ago. PAST MEDICAL HISTORY: Diabetes type 2, hypertension, cataracts, hypercholesterolemia. PAST SURGICAL HISTORY: He has had a femur repair for fracture. FAMILY HISTORY: Noncontributory. SOCIAL HISTORY: He is a former smoker. Denies alcohol. He does not use intravenous drugs. CURRENT MEDICATIONS: 1. Tylenol. 2. Pepcid. 3. Insulin. 4. Ondansetron. 5. Bactrim. HOME MEDICATIONS PREVIOUS: 1. Atorvastatin. 2. Eliquis. 3. Iron sulfate. 4. Flomax. 5. Levemir. 6. Midodrine. 7. [place]. 8. NovoLog. 9. Zofran. 10. Tylenol as needed. REVIEW OF SYSTEMS: Noted per Dr. Jimenez's admission H&P. There are no other additions or deletions other than that listed in the History of Present Illness. Constitutional: He denies any fevers, chills, or sweats. Eye: No recent visual problems. ENT: No ear pain, nasal congestion, sore throat. Respiratory: No shortness of breath or cough at this time. Cardiovascular: He has no chest pain, palpitations, or syncope. He does have a history of hypertension and hypercholesterolemia. GI: He does have bouts of nausea, vomiting, and currently has diarrhea. He denies any nausea at this time, denies any known history of hepatitis or gallbladder disease. Genitourinary: He does have urinary retention and recent UTI. No hematuria. Hematology: He denies bruising, swollen glands. Endocrine: He does have a history of diabetes mellitus type 2, uses insulin in the hospital as needed for control of sugars. He denies any other endocrine disorders including thyroid disease. Musculoskeletal: He denies any back pain, neck pain, joint pain, muscle pain. Skin: No rash, pruritus, or abrasions. Neurological: He is alert and oriented x3. No history of stroke or Parkinson's. Psychiatric: No anxiety, depression, or other psychiatric disorders. PHYSICAL EXAMINATION: GENERAL: He is awake, alert, oriented x3. Nontoxic in appearance. In no acute distress. He does appear older than his stated age. VITAL SIGNS: Temperature 97.7, pulse 76, respirations 16, blood pressure 145/72, oxygen saturation 90%. SKIN: Warm and dry. Mild pallor. HEENT: Extraocular movements are intact. There is no scleral icterus or conjunctival injection. Head was otherwise atraumatic, normocephalic. There was a mild temporal muscle wasting. NECK: Supple. No jugular venous distention. Thyroid nonpalpable. Trachea midline. HEART: Regular rate and rhythm without murmur. LUNGS: Clear to auscultation without rhonchi or rales. There are some coarse breath sounds diffusely. Normal to percussion. ABDOMEN: Soft. Positive bowel sounds. No guarding, rebound, rigidity, tenderness, or palpable hepatosplenomegaly. EXTREMITIES: No clubbing, cyanosis, or edema. LABORATORY DATA: Hemoglobin last night was 8.8. This morning it is noted to be 8.4. White count 14.0, platelets 312. Sodium 140, potassium 3.3, chloride 104, CO2 23, BUN 17, creatinine 1.3. Liver chemistries are unremarkable other than alkaline phosphatase of 167. Clostridium difficile antigen and toxin were detected. Occult stool occult blood was negative, however. Chest x-ray demonstrates minor patchy air space disease in the left lung. Aspiration is possible although atelectasis or infiltrate possible as well. Otherwise, no other changes were noted. IMPRESSION: 1. Clostridium difficile diarrhea. 2. Coffee-ground emesis, possible upper GI hemorrhage. 3. Hypertension by history. 4. Hypercholesterolemia by history. 5. Diabetes by history. RECOMMENDATIONS: We will continue to monitor the hemoglobin serially, transfuse as needed. Would continue him on a twice per day proton pump inhibitor indefinitely until further investigation is completed. Would continue on vancomycin for at least 14 days. He should undergo an upper and lower endoscopy in 3-4 weeks as an outpatient. I think this will need to be performed up at [facility]. If he has decompensation or needs urgent attention, I would suggest he transfer to [place] for inpatient care and inpatient investigation from an endoscopic perspective. CC: Tayo Alex MD [facility]
== END 2018-06-27 18:17 | disposition home health service (06) ==
LOC: SUR 13:26 → MEDSURG 19:07 → INTOOBSV 19:25
PROVIDERS: ADMIT Internal Medicine; ATTEND Internal Medicine
DX: R33.9 Retention of urine, unspecified (principal); E11.9 Type 2 diabetes mellitus without complications; Z79.4 Long term (current) use of insulin
CPT/HCPCS: 36416; 71045; 80048; 80053; 81001; 82272; 82948; 85025; 85027; 87493; 94640; 94760; 94761; J2405; J7613

== ENCOUNTER 2019-03-27 14:48 | Emergency (ER) | payer MEDICARE ==
[2019-03-27] MEDS ORDERED: ONDANSETRON HCL IV 4 MG/2 ML VIAL IV ONE (15:03)
[2019-03-27] MEDS ORDERED: 0.9 % SODIUM CHLORIDE 1,000 ML BAG IV ONE ×2 (15:03→15:48)
[2019-03-27] MEDS ORDERED: DEXTROSE 5 % AND 0.9 % NACL 1,000 ML IV PRN (15:04)
--- NOTE | 2019-03-27 15:08 | Emergency Department Record ---
History of Present Illness - General Chief complaint: Vomiting Stated complaint: VOMITING Time Seen by Provider: 03/27/19 14:57 Source: Patient, Family Mode of Arrival: EMS Limitations: No limitations - History of Present Illness Initial comments: The patient is here due to frequent nausea and vomiting since this morning. He denies any AP, diarrhea, fever, CP, SOB or PATRICIA. The patient has a long hx of diabetes and has had this problem many times in the pat. He denies any pain but did recently start Levaquin for a UTI 3 days ago. MD complaint: Nausea, Vomiting Onset/Timin -: Hour(s) Description of Vomiting: Watery Improves with: None Worsens with: None Associated Symptoms: Nausea/vomiting - Related Data Home Medications Medication Instructions Recorded Confirmed Last Taken Levofloxacin [Levaquin Tab] 500 mg PO DAILY 03/27/19 03/27/19 Unknown Previous Rx's Medication Instructions Recorded Levofloxacin [Levaquin] 250 mg PO DAILY #4 tab 03/27/19 Ondansetron [Zofran Odt] 4 mg SL .Q4-6H PRN #12 tab.rapdis 03/27/19 Allergies Allergy/AdvReac Type Severity Reaction Status Date / Time tamsulosin [From Flomax] AdvReac DIARRHEA Verified 03/27/19 14:56 Travel Screening - Travel/Exposure Within Last 30 Days Have you traveled within the last 30 days?: No Review of Systems Constitutional: Denies: Chills, Fever Eyes: Denies: Eye discharge ENT: Denies: Congestion Respiratory: Denies: Cough, Dyspnea Cardiovascular: Denies: Chest pain Endocrine: Denies: Fatigue Gastrointestinal: Reports: Nausea, Vomiting. Denies: Diarrhea Genitourinary: Denies: Dysuria Musculoskeletal: Denies: Arthralgia Skin: Denies: Bruising Past Medical History - SOCIAL HISTORY Smoking Status: Former smoker Alcohol Use: None Drug Use: None - RESPIRATORY Hx Respiratory Disorders: No - CARDIOVASCULAR Hx Cardio Disorders: Yes Hx Hypertension: Yes Comment:: hx orthostatic hypotension - NEURO Hx Neuro Disorders: Yes Hx Dizziness: Yes (hx of) - GI Hx GI Disorders: No Comment:: diarrhea hx - Hx Genitourinary Disorders: Yes Hx Renal Disease: Yes Comment:: urinary retention since right hip ORIF - ENDOCRINE Hx Endocrine Disorders: Yes Hx Diabetes: Yes (x10 years) - MUSCULOSKELETAL Hx Musculoskeletal Disorders: No - PSYCH Hx Psych Problems: No - HEMATOLOGY/ONCOLOGY Hx Hematology/Oncology Disorders: Yes Hx Anemia: Yes Family Medical History Any Significant Family History?: Yes Hx Cancer: Father Hx Diabetes: Mother Physical Exam - General General Appearance: Alert, Oriented x3, Cooperative, No acute distress - Head Head exam: Atraumatic, Normocephalic, Normal inspection - Eye Eye exam: Normal appearance, PERRL - ENT Throat exam: Normal inspection. negative: Tonsillar erythema, Tonsillar exudate - Neck Neck exam: Normal inspection, Full ROM. negative: Tenderness - Respiratory Respiratory exam: Normal lung sounds bilaterally. negative: Respiratory distress - Cardiovascular Cardiovascular Exam: Regular rate, Normal rhythm, Normal heart sounds - GI/Abdominal GI/Abdominal exam: Soft, Normal bowel sounds. negative: Distended, Guarding, Rebound, Rigid, Tenderness - Extremities Extremities exam: Normal inspection, Full ROM, Normal capillary refill. negative: Tenderness - Neurological Neurological exam: Alert, Normal gait. negative: Abnormal gait, Motor sensory deficit Course Vital Signs 03/27/19 03/27/19 14:53 15:01 Temperature 97.6 F Pulse Rate 83 Respiratory 20 Rate Blood Pressure 198/105 Blood Pressure 152/88 [Left Arm] Pulse Ox 99 - Reevaluation(s) Reevaluation #1: The patient is doing a lot better at this time. He denies any AP, nausea, or vomiting and feels much better. The patient had a Bm in the ED and feels completely better. On exam his abdomen is very soft and nontender in all 4 quads. He is drinking fluids well with no nausea and would like to go home. 03/27/19 16:03 Reevaluation #2: The patient is doing a lot better at this time. He is drinking fluids well with no nausea or vomiting. On exam his abdomen is very soft and nontender in all 4 quads. He is ready for home. 03/27/19 16:31 Medical Decision Making - Data Complexity MDM Data: Labs Ordered and/or Reviewed, EKG Ordered and/or Reviewed - Lab Data Result diagrams: 03/27/19 15:00 03/27/19 15:00 - EKG Data -: EKG Interpreted by Me EKG: No Acute Changes, Normal EKG Disposition Disposition: Discharge Clinical Impression: Vomiting alone Disposition: Home, Self-Care Condition: (2) Stable Instructions: Acute Nausea and Vomiting (ED) Additional Instructions: Please continue your regular medicines and use Zofran for nausea. Drink plenty of fluids and see your family doctor early next week if not better. Return to the ER for any worsening symptoms, pain, fever, or vomiting. Please lower your Levaquin dose to 250 mg daily for 4 more days. Prescriptions: Levofloxacin [Levaquin] 250 mg PO DAILY #4 tab Ondansetron [Zofran Odt] 4 mg SL .Q4-6H PRN #12 tab.rapdis PRN Reason: Nausea Forms: Patient Portal Access Time of Disposition: 16:33 Quality - Quality Measures Quality Measures: N/A - Blood Pressure Screening View Details: Yes Does Patient Have Any of the Following: No Blood Pressure Classification: Hypertensive Reading Systolic Measurement: 198 Diastolic Measurement: 105 Screening for High Blood Pressure: < First Hypertensive BP, F/U Documented > [G 8950] First Hypertensive Follow-up Interventions: Referral to alternative/primary care provider.
[2019-03-27 15:12] LABS: ABSOLUTE NEUTROPHIL COUNT 8.97; BASO % 0.5 % (0-6); EOS % 3.4 % (0-6); GRAN % 74.2 % (47-80); HEMATOCRIT 37.7 % (42.0-52.0); LYMPH % 14.6 % (16-45); MEAN CELL VOLUME 85.7 fl (81-97); MEAN CORPUSCULAR HGB CONC 31.8 g/dl (32-36); MONO % 7.3 % (0-9); PLATELET COUNT 359 K/uL (130-400); RED CELL DISTRIBUTION WIDTH 14.2 % (11.5-14.5); WHITE BLOOD COUNT W/O DIFF 12.1 K/uL (4.2-12.2)
[2019-03-27 15:14] LABS: MEAN CORPUSCULAR HEMOGLOBIN 27.2 pg (27-33)
[2019-03-27 15:22] LABS: BLOOD UREA NITROGEN 34 mg/dL (8-23); CREATININE 1.9 mg/dL (0.7-1.2); EST GLOMERULAR FILTRATION RATE 37 mL/min; TOTAL PROTEIN 8.7 g/dL (6.6-8.7)
[2019-03-27 15:23] LABS: LIPASE 35 U/L (13-60)
[2019-03-27 15:25] LABS: GLUCOSE,RANDOM 145 mg/dL (74-109)
[2019-03-27 15:27] LABS: ALBUMIN 4.8 g/dL (4.0-5.0); ALKALINE PHOSPHATASE 181 U/L (40-129); ALT/SGPT 9 U/L (<41); AST/SGOT 16 U/L (10.0-50.0)
[2019-03-27 15:38] LABS: BILIRUBIN,DIRECT < 0.2 mg/dL (0-0.3)
[2019-03-27 15:58] LABS: URINE APPEARANCE SL CLOUDY; URINE BILIRUBIN NEGATIVE (NEGATIVE); URINE BLOOD SMALL (NEGATIVE); URINE COLOR YELLOW; URINE GLUCOSE (UA) NEGATIVE (NEGATIVE); URINE KETONE NEGATIVE (NEGATIVE); URINE LEUKOCYTE ESTERASE SMALL (NEGATIVE); URINE NITRITE NEGATIVE (NEGATIVE); URINE UROBILINOGEN 0.2 E.U./dL (0.20 - 1.00)
[2019-03-27 16:05] LABS: URINE RBC 16 - 25 (NONE SEEN)
[2019-03-27 16:06] LABS: URINE BACTERIA FEW; URINE EPITHELIAL CELLS RARE (FEW); URINE WBC 21 - 35 (0-2/hpf)
[2019-03-27] MEDS ORDERED: ONDANSETRON HCL IV 4 MG/2 ML VIAL IVP ONE (16:57)
== END 2019-03-27 17:33 | disposition home or self-care (01) ==
LOC: ER 14:48
DX: R11.10 Vomiting, unspecified (principal); E11.9 Type 2 diabetes mellitus without complications; I10 Essential (primary) hypertension; Z87.891 Personal history of nicotine dependence
CPT/HCPCS: 99284 ×2; 96376; 96365; 96375; 96361; 83690; 85025; 80076; 80048; 81001; 93005; 93010; J2405; J7030; J7042